=== PATIENT | male | born 1940 | race Caucasian/White ===

== ENCOUNTER 2018-03-04 10:04 | Emergency (ER) | payer MEDICARE, MEDICAID, SELFPAY ==
[2018-03-04 10:16] VITALS: BP 142/81; PULSE 71; RESP 18; TEMP 37; O2SAT 98
[2018-03-04 10:32] LABS: Absolute Basophil Count 0.07 k/cumm (0.0-0.2); Absolute Eosinophil Count 0.37 k/cumm (0.0-0.7); Absolute Monocyte Count 0.65 k/cumm (0.11-0.7); Absolute Neutrophil Count 3.51 k/cumm (1.2-6.7); Eosinophils % 5.5; HCT 45.2 % (40.0-50.0); HGB 15.4 g/dL (13.5-17.5); Lymphocytes % 31.3; Mean Corp. HGB Concentration 34.1 g/dL (32.0-36.0); Mean Corpuscular Hemoglobin 31.9 pg (27.0-33.0); Mean Corpuscular Volume 93.6 fL (80-95); Mean Platelet Volume 10.1 fL (8.0-11.0); Monocytes % 9.7; Neutrophils % 52.5; Platelet Count 204 x1000/uL (130-400); RBC 4.83 m/cumm (4.50-6.00); RBC Distribution Width 13.2 % (11.8-14.1)
--- NOTE | 2018-03-04 10:35 | W.ED.GENAD ---
Discharge Plan Discharge Details Chief Complaint: Palpitatns Clinical Impression: Heart palpitations Primary Care Provider: Anahi Gregorio ED Provider: Jan Aaron Disposition Patient Disposition: HOME Home Meds and New Rx's Prescriptions: Continue aspirin [Aspir-81] 81 MG tablet,delayed release (DR/EC) 81 mg PO BID RF: 0 clorazepate dipotassium 7.5 MG tablet 3.5 mg PO HS PRNRF: 0 docusate sodium [Colace] 100 MG capsule 100 mg PO DAILY RF: 0 Discharge Instructions Instructions: Palpitations (ED) Additional Instructions: if you have severe chest pain, difficulty breathing, or feel as you may pass out return to the emergency department follow up with your civil engineer helper as scheduled at [facility] and also your primary care provider within 1 week Discharge Data Discharge Physician: Jan Aaron Medical Decision Making MDM Narrative Medical decision making narrative: patient here with reporting that he could feel his heart skip a beat every 4-5 beats last night. Denies any sob, chest pain or back pain during this and no feeling as though he may pass out or high herat rate so unlikely acs, dissection, afib with rvr or vfib. I suspect he is feeling the pac's on his ekg. He has no symptoms now, will check for electrolyte abnormatliies and monitor. No sob, no evidence of dvt on exam, no pleuritic chest pain tachycardia or hypoxia so doubt PE. patient remains stable and asymptomatic. LAbs are unremarkable and has unremarkable tele. Will send home with zio patch, and advised f/u with pcp and cardiology as he is scheduled and return precautions given Differential Diagnosis acs, pac, palpitations Lab Data Lab results reviewed: Yes I reviewed the patient's lab results. Lab Results 03/04/18 Range/Units 10:25 WBC 6.70 (4.4-10.8) k/cumm RBC 4.83 (4.50-6.00) m/cumm Hgb 15.4 (13.5-17.5) g/dL Hct 45.2 (40.0-50.0) % MCV 93.6 (80-95) fL MCH 31.9 (27.0-33.0) pg MCHC 34.1 (32.0-36.0) g/dL RDW 13.2 (11.8-14.1) % Plt Count 204 (130-400) x1000/uL MPV 10.1 (8.0-11.0) fL Immature Gran % 0.0 Neutrophils % 52.5 Lymphocytes % 31.3 Monocytes % 9.7 Eosinophils % 5.5 Basophils % 1.0 Absolute Neutrophils 3.51 (1.2-6.7) k/cumm Absolute Lymphocytes 2.10 (1.2-3.4) k/cumm Absolute Monocytes 0.65 (0.11-0.7) k/cumm Absolute Eosinophils 0.37 (0.0-0.7) k/cumm Absolute Basophils 0.07 (0.0-0.2) k/cumm ECG Data Attestation: I personally reviewed and interpreted this ECG (s) as follows: Prior ECG tracings: available for review Interpretation: sinus rhytm with occasional pac, left axis, rate of 65, no significant ischemic changes compared to prior ekg HPI - General Adult General Mode of arrival: ambulatory. Date/Time Provider Initiated Documentation: 03/04/18 10:20. Limitations to Documentation: no limitations. Information obtained by: patient. History of Present Illness 77 year old M presents to the emergency department with the chief complaint of palpitations, described as mild, with intensity rated at 2. Quality is described as other (feels pulse skipping beats), and is localized to the chest. Patient reports no radiation. Patient started experiencing this day(s) (1) and it has been now resolved. No relieving factors improve symptom(s), No exacerbating factors reported . Patient notes no other symptoms.. Patient did receive the following treatments prior to arrival, none HPI Narrative-FOR DICTATION ONLY HPI Narrative: felt like his heart was skippin beats last night. Denies chest pain, sob, diarphoresis, vomit. Is due to see [facility] cardiology for eval of his biopostethetic heart valve placed in 2011 Related Data Home Medications Medication Instructions Recorded Confirmed aspirin [Aspir-81] 81 mg PO BID 09/18/13 03/04/18 clorazepate dipotassium 3.5 mg PO HS PRN 09/18/13 03/04/18 docusate sodium [Colace] 100 mg PO DAILY 02/06/18 03/04/18 Allergies Allergy/AdvReac Type Severity Reaction Status Date / Time iodine Allergy Severe Unverified 03/04/18 10:21 General Stated Complaint: Palpitatns BRITTON: 3 Review of Systems Review of Systems All systems reviewed & are unremarkable except as noted in HPI and below Constitutional Denies chills, Denies fever(s) and Denies weakness Eyes Patient Denies loss of vision ENT Denies change in voice Cardiovascular Denies chest pain, Reports palpitations and Denies dyspnea Respiratory Denies dyspnea Gastrointestinal Denies abdominal pain, Denies nausea and Denies vomiting Genitourinary Denies dysuria Musculoskeletal Denies joint swelling Integumentary/Breasts Denies rash Neurologic Denies loss of vision and Denies weakness Psychiatric Denies depression Endocrine Denies cold intolerance, Denies heat intolerance and Reports palpitations Allergic/Immunologic Reports urticaria PFSH Medical History Anxiety disorder Chest discomfort Constipation Dysphagia ED (erectile dysfunction) of organic origin GERD (gastroesophageal reflux disease) H/O aortic valve replacement History of tobacco use Hyperlipidemia Low back pain Lower urinary tract symptoms S/P CABG (coronary artery bypass graft) Sleep disturbance Social History Smoking/Tobacco Use Status: Former Tobacco Use Exam Const General: no acute distress Orientation: alert HENMT Head: normal to inspection Ears: external ears normal General nose exam: external nose normal Mouth: moist mucous membranes Eyes General: appearance normal, both eyes and all related structures Neck Neck: normal visual inspection Resp Effort & Inspection: normal respiratory effort and able to speak in complete sentences Cardio Rate: regular rate Rhythm: regular rhythm Skin General skin exam: no rashes or lesions noted Neuro General: alert and oriented x3 Extrem General: normal to inspection Psych Mental Status: mental status grossly normal Course Vital Signs Temperature 37.0 C 03/04/18 10:16 Pulse 71 03/04/18 10:16 Respiratory Rate 18 03/04/18 10:16 Blood Pressure 142/81 H 03/04/18 10:16 Pulse Oximetry 98 03/04/18 10:16 Temperature 37.0 C 03/04/18 10:16 Pulse 71 03/04/18 10:16 Respiratory Rate 18 03/04/18 10:16 Blood Pressure 142/81 H 03/04/18 10:16 Pulse Oximetry 98 03/04/18 10:16 Lab/Test Results Lab/Test Results: Laboratory Tests 03/04/18 10:25 WBC 6.70 RBC 4.83 Hgb 15.4 Hct 45.2 MCV 93.6 MCH 31.9 MCHC 34.1 RDW 13.2 Plt Count 204 MPV 10.1 Immature Gran % 0.0 Neutrophils % 52.5 Lymphocytes % 31.3 Monocytes % 9.7 Eosinophils % 5.5 Basophils % 1.0 Absolute Neutrophils 3.51 Absolute Lymphocytes 2.10 Absolute Monocytes 0.65 Absolute Eosinophils 0.37 Absolute Basophils 0.07
--- NOTE | 2018-03-04 10:41 | ED.GENADUL_ITS ---
Discharge Plan Discharge Details Chief Complaint: Palpitatns Clinical Impression: Heart palpitations Primary Care Provider: Anahi Gregorio ED Provider: Jan Aaron Disposition Patient Disposition: HOME Home Meds and New Rx's Prescriptions: Continue aspirin [Aspir-81] 81 MG tablet,delayed release (DR/EC) 81 mg PO BID RF: 0 clorazepate dipotassium 7.5 MG tablet 3.5 mg PO HS PRNRF: 0 docusate sodium [Colace] 100 MG capsule 100 mg PO DAILY RF: 0 Discharge Instructions Instructions: Palpitations (ED) Additional Instructions: if you have severe chest pain, difficulty breathing, or feel as you may pass out return to the emergency department follow up with your carpet inspector as scheduled at [facility] and also your primary care provider within 1 week Discharge Data Discharge Physician: Jan Aaron Medical Decision Making MDM Narrative Medical decision making narrative: patient here with reporting that he could feel his heart skip a beat every 4-5 beats last night. Denies any sob, chest pain or back pain during this and no feeling as though he may pass out or high herat rate so unlikely acs, dissection, afib with rvr or vfib. I suspect he is feeling the pac's on his ekg. He has no symptoms now, will check for electrolyte abnormatliies and monitor. No sob, no evidence of dvt on exam, no pleuritic chest pain tachycardia or hypoxia so doubt PE. patient remains stable and asymptomatic. LAbs are unremarkable and has unremarkable tele. Will send home with zio patch, and advised f/u with pcp and cardiology as he is scheduled and return precautions given Differential Diagnosis acs, pac, palpitations Lab Data Lab results reviewed: Yes I reviewed the patient's lab results. Lab Results 03/04/18 Range/Units 10:25 WBC 6.70 (4.4-10.8) k/cumm RBC 4.83 (4.50-6.00) m/cumm Hgb 15.4 (13.5-17.5) g/dL Hct 45.2 (40.0-50.0) % MCV 93.6 (80-95) fL MCH 31.9 (27.0-33.0) pg MCHC 34.1 (32.0-36.0) g/dL RDW 13.2 (11.8-14.1) % Plt Count 204 (130-400) x1000/uL MPV 10.1 (8.0-11.0) fL Immature Gran % 0.0 Neutrophils % 52.5 Lymphocytes % 31.3 Monocytes % 9.7 Eosinophils % 5.5 Basophils % 1.0 Absolute Neutrophils 3.51 (1.2-6.7) k/cumm Absolute Lymphocytes 2.10 (1.2-3.4) k/cumm Absolute Monocytes 0.65 (0.11-0.7) k/cumm Absolute Eosinophils 0.37 (0.0-0.7) k/cumm Absolute Basophils 0.07 (0.0-0.2) k/cumm ECG Data Attestation: I personally reviewed and interpreted this ECG (s) as follows: Prior ECG tracings: available for review Interpretation: sinus rhytm with occasional pac, left axis, rate of 65, no significant ischemic changes compared to prior ekg HPI - General Adult General Mode of arrival: ambulatory . Date/Time Provider Initiated Documentation: 03/04/18 10:20 . Limitations to Documentation: no limitations . Information obtained by: patient . History of Present Illness 77 year old M presents to the emergency department with the chief complaint of palpitations, described as mild, with intensity rated at 2. Quality is described as other (feels pulse skipping beats), and is localized to the chest. Patient reports no radiation. Patient started experiencing this day(s ) (1) and it has been now resolved. No relieving factors improve symptom(s) , No exacerbating factors reported . Patient notes no other symptoms.. Patient did receive the following treatments prior to arrival, none HPI Narrative-FOR DICTATION ONLY HPI Narrative: felt like his heart was skippin beats last night. Denies chest pain, sob, diarphoresis, vomit. Is due to see [facility] [place] cardiology for eval of his biopostethetic heart valve placed in 2011 Related Data Home Medications Medication Instructions Recorded Confirmed aspirin [Aspir-81] 81 mg PO BID 09/18/13 03/04/18 clorazepate dipotassium 3.5 mg PO HS PRN 09/18/13 03/04/18 docusate sodium [Colace] 100 mg PO DAILY 02/06/18 03/04/18 Allergies Allergy/AdvReac Type Severity Reaction Status Date / Time iodine Allergy Severe Unverified 03/04/18 10:21 General Stated Complaint: Palpitatns BRITTON: 3 Review of Systems Review of Systems All systems reviewed & are unremarkable except as noted in HPI and below Constitutional Denies chills, Denies fever(s) and Denies weakness Eyes Patient Denies loss of vision ENT Denies change in voice Cardiovascular Denies chest pain, Reports palpitations and Denies dyspnea Respiratory Denies dyspnea Gastrointestinal Denies abdominal pain, Denies nausea and Denies vomiting Genitourinary Denies dysuria Musculoskeletal Denies joint swelling Integumentary/Breasts Denies rash Neurologic Denies loss of vision and Denies weakness Psychiatric Denies depression Endocrine Denies cold intolerance, Denies heat intolerance and Reports palpitations Allergic/Immunologic Reports urticaria PFSH Medical History Anxiety disorder Chest discomfort Constipation Dysphagia ED (erectile dysfunction) of organic origin GERD (gastroesophageal reflux disease) H/O aortic valve replacement History of tobacco use Hyperlipidemia Low back pain Lower urinary tract symptoms S/P CABG (coronary artery bypass graft) Sleep disturbance Social History Smoking/Tobacco Use Status: Former Tobacco Use Exam Const General: no acute distress Orientation: alert HENMT Head: normal to inspection Ears: external ears normal General nose exam: external nose normal Mouth: moist mucous membranes Eyes General: appearance normal, both eyes and all related structures Neck Neck: normal visual inspection Resp Effort & Inspection: normal respiratory effort and able to speak in complete sentences Cardio Rate: regular rate Rhythm: regular rhythm Skin General skin exam: no rashes or lesions noted Neuro General: alert and oriented x3 Extrem General: normal to inspection Psych Mental Status: mental status grossly normal Course Vital Signs Temperature 37.0 C 03/04/18 10:16 Pulse 71 03/04/18 10:16 Respiratory Rate 18 03/04/18 10:16 Blood Pressure 142/81 H 03/04/18 10:16 Pulse Oximetry 98 03/04/18 10:16 Temperature 37.0 C 03/04/18 10:16 Pulse 71 03/04/18 10:16 Respiratory Rate 18 03/04/18 10:16 Blood Pressure 142/81 H 03/04/18 10:16 Pulse Oximetry 98 03/04/18 10:16 Lab/Test Results Lab/Test Results: Laboratory Tests 03/04/18 10:25 WBC 6.70 RBC 4.83 Hgb 15.4 Hct 45.2 MCV 93.6 MCH 31.9 MCHC 34.1 RDW 13.2 Plt Count 204 MPV 10.1 Immature Gran % 0.0 Neutrophils % 52.5 Lymphocytes % 31.3 Monocytes % 9.7 Eosinophils % 5.5 Basophils % 1.0 Absolute Neutrophils 3.51 Absolute Lymphocytes 2.10 Absolute Monocytes 0.65 Absolute Eosinophils 0.37 Absolute Basophils 0.07
[2018-03-04 10:46] LABS: ALT 27 U/L (12-78); AST 25 U/L (15-37); Albumin 3.4 g/dL (3.4-5.0); Alkaline Phosphatase 59 U/L (46-116); Anion Gap 4.1 mmol/L (3-11); BUN 12 mg/dL (7-18); Bilirubin, Total 0.5 mg/dL (0.2-1.0); CO2 30.9 mmol/L (21.0-32.0); CREATININE 0.87 mg/dL (0.70-1.30); Calcium 8.4 mg/dL (8.5-10.1); Chloride 103 mmol/L (98-107); Glucose 100 mg/dL (70-100); INR 1.1 (1.0-3.5); PTT Activated 25.8 sec (21.0-31.4); Potassium 4.2 mmol/L (3.5-5.1); Prothrombin Time 10.8 sec (9.3-10.8); Sodium 138 mmol/L (136-145); Total Protein 6.9 g/dL (6.4-8.2)
[2018-03-04 10:47] LABS: Troponin I < 0.02 ng/mL (0.00-0.06)
[2018-03-04 11:42] VITALS: BP 142/81; PULSE 71; RESP 18; TEMP 37; O2SAT 98
--- NOTE | 2018-03-26 13:58 | ZIOP_ITS ---
O MONITOR REPORT DATE OF DICTATION: March 26, [address]: 13 days, 7 hours, March 04 - 2017 Baseline rhythm sinus. Rare single PAC. Seventeen bursts of SVT, longest 17.3 seconds, fastest 200 bpm. Rare single PVC, rare couplet, rare triplet. Two bursts of non-sustained ventricular tachycardia, longest 4-beat duration, fastest 174 bpm. No bradycardia/block. Two triggered events during sinus rhythm +/- single PVC. Two symptomatic episodes described. One episode chest pain/pressure occurring during sinus rhythm 68 bpm with diffuse T-wave inversions. Anxiousness described once during sinus rhythm 70 bpm. Average heart rate sinus 72 bpm, range 49-138 bpm. RECOMMENDATIONS: Stress test might be considered with patient developing chest pain in the context o f new T-wave changes.
== END 2018-03-04 12:05 | disposition home or self-care (01) ==
PROVIDERS: Emergency Provider Emergency Medicine; PCP Nurse Practitioner
DX: R00.2 Palpitations (principal); Z95.2 Presence of prosthetic heart valve
CPT/HCPCS: 36415; 80053; 93005; 93225; 99284; 83735; 84484; 85025; 85610; 85730; 93010

== ENCOUNTER → 2018-03-12 11:03 | Outpatient (BNVA) | payer MEDICARE, MEDICAID, SELFPAY | PROVIDERS: PCP Nurse Practitioner; Visit Provider Surgery | DX: K59.00 Constipation, unspecified (principal) | CPT/HCPCS: 99213 ==

== ENCOUNTER 2018-03-26 09:00 | Outpatient (CLI) | payer MEDICARE, MEDICAID, SELFPAY | END 2018-03-26 09:20 | PROVIDERS: PCP Nurse Practitioner; Referring Provider Emergency Medicine; Visit Provider Internal Medicine Interventional Cardiology | DX: R00.2 Palpitations (principal) | CPT/HCPCS: 0298T ==

== ENCOUNTER 2018-04-30 10:33 | Outpatient (REF) | payer MEDICARE, MEDICAID, SELFPAY ==
[2018-04-30 13:02] LABS: Cholesterol 190 mg/dL (50-200); HDL Cholesterol 53 mg/dL (40-60); LDL CHOLESTEROL 128 mg/dL (<100); Triglyceride 101 mg/dL (30-150)
== END 2018-04-30 10:53 ==
LOC: NCHCN 10:33
PROVIDERS: PCP Nurse Practitioner; Visit Provider Nurse Practitioner
DX: E78.5 Hyperlipidemia, unspecified (principal)
CPT/HCPCS: 80061; 83721

== ENCOUNTER → 2018-08-23 12:00 | Outpatient (BNVA) | payer MEDICARE, MEDICAID, SELFPAY | PROVIDERS: PCP Nurse Practitioner; Visit Provider Internal Medicine Cardiovascular Disease | DX: Z95.2 Presence of prosthetic heart valve (principal); I25.10 Atherosclerotic heart disease of native coronary artery without angina pectoris | CPT/HCPCS: 99214 ==

== ENCOUNTER 2019-02-02 15:42 | Emergency (ER) | payer MEDICARE, MEDICAID, SELFPAY ==
[2019-02-02] VITALS (15 sets, daily range): BP systolic 162–182; BP diastolic 60–86; PULSE 59–68; RESP 15–23; TEMP 37.3; O2SAT 95–98
--- NOTE | 2019-02-02 15:55 | W.ED.GENAD ---
Discharge Plan Disposition Patient Disposition: AGAINST MEDICAL ADVICE Condition: Stable Discharge Details Chief Complaint: Palpitatns Clinical Impression: Palpitations Primary Care Provider: Anahi Gregorio ED Provider: Mariama Mishra Home Meds and New Rx's Prescriptions: Continued peppermint oil 90 mg capsule,delayed,extend.release 90 mg PO BID RF: 0 aspirin [Aspir-81] 81 MG tablet,delayed release (DR/EC) 81 mg PO BID RF: 0 clorazepate dipotassium 7.5 MG tablet 3.5 mg PO HS PRNRF: 0 Discharge Instructions Instructions: Palpitations (ED) Additional Instructions: You are leaving AGAINST MEDICAL ADVICE. As your palpitations have been becoming more persistent with exertion, your symptoms may be due to an acute heart condition that could require further evaluation or hospital admission. Call your power plant assistant at [facility] on Monday morning. Return immediately to the emergency department if you develop any worsening or new concerning symptoms. Discharge Data Discharge Physician: Mariama Mishra Medical Decision Making 1600 -- 78-year-old male with history of anxiety, GERD, hyperlipidemia, aortic valve replacement, CABG who presents with intermittent palpitations and shortness of breath over the past few weeks. His aortic valve was replaced in 2011 due to aortic stenosis. He has been evaluated by [facility] cardiology for this intermittent palpitations and had a heart monitor in the spring 2018 which he states was unremarkable. He states his palpitations have been becoming more frequent, and brought on by exertion. He denies any chest pain at any time. Murmur noted on exam. Patient otherwise appears nontoxic, comfortable. Lungs clear. EKG notes a rate of 67, sinus, left anterior fascicular block, T wave inversion in 1, aVL, V5 and V6, Ms. has been seen in previous EKG but T wave inversion appears more pronounced in V6. There is no acute ST elevation or depression. 1730 -- Labs reviewed and unremarkable. Patient refused chest x-ray. Risks of and disability due to a serious pathology explained to patient fully understands. Discussed patient that as he has been having ongoing symptoms which have been progressing, this could require further evaluation including chest x-ray, possible repeat troponin, or possibly hospital admission. Patient is declining all of these at this time. He is agreeable with me calling [facility] cardiology to discuss but does not want to wait for the consult results. He demonstrates capacity make decisions. AMA form signed. 1819 --after discharge, case discussed with [facility] cardiology and they reviewed patient's recent records and noted that his recent monitor noted some PACs and PVCs, and a stress test from April was unremarkable and an echocardiogram noted moderate stenosis but likely not needing any new emergent aortic valve replacement. They will make a note to make sure patient follows up for reevaluation and for outpatient monitor and echocardiogram if recommended. Medical Records Medical records reviewed: Yes I reviewed the patient's medical records. Lab Data Lab results reviewed: Yes I reviewed the patient's lab results. Laboratory Tests Range/Units 02/02/19 02/02/19 16:00 16:00 WBC (4.4-10.8) k/cumm 7.80 RBC (4.50-6.00) m/cumm 5.14 Hgb (13.5-17.5) g/dL 16.0 Hct (40.0-50.0) % 47.3 MCV (80-95) fL 92.0 MCH (27.0-33.0) pg 31.1 MCHC (32.0-36.0) g/dL 33.8 RDW (11.8-14.1) % 13.3 Plt Count (130-400) x1000/uL 225 MPV (8.0-11.0) fL 10.8 Immature Gran % 0.3 Neutrophils % 52.2 Lymphocytes % 35.0 Monocytes % 9.9 Eosinophils % 2.1 Basophils % 0.5 Absolute Neutrophils (1.2-6.7) k/cumm 4.08 Absolute Lymphocytes (1.2-3.4) k/cumm 2.73 Absolute Monocytes (0.11-0.7) k/cumm 0.77 H Absolute Eosinophils (0.0-0.7) k/cumm 0.16 Absolute Basophils (0.0-0.2) k/cumm 0.04 Sodium (136-145) mmol/L 138 Potassium (3.5-5.1) mmol/L 4.3 Chloride (98-107) mmol/L 103 Carbon Dioxide (21.0-32.0) mmol/L 27.3 Anion Gap (3-11) mmol/L 7.7 BUN (7-18) mg/dL 18 Creatinine (0.70-1.30) mg/dL 0.99 Estimated GFR/1.73 m2 (mL/min/1.73m2) >= 60.00 Glucose (70-100) mg/dL 106 H Calcium (8.5-10.1) mg/dL 8.6 Magnesium (1.8-2.4) mg/dL 2.2 Total Bilirubin (0.2-1.0) mg/dL 0.4 AST (15-37) U/L 21 ALT (12-78) U/L 27 Alkaline Phosphatase (46-116) U/L 64 Troponin I (0.00-0.06) ng/mL < 0.05 Total Protein (6.4-8.2) g/dL 7.6 Albumin (3.4-5.0) g/dL 3.7 ECG Data Attestation: I personally reviewed and interpreted this ECG (s) as follows: Interpretation: Rate of 67, sinus, left anterior fascicular block, T wave inversion in 1, aVL, V2, V5 and V6 which is been seen in previous. More pronounced T wave inversion in V6 compared to previous. No acute ST elevation or depression. QTc 433. QRS 98. HPI General Mode of arrival: ambulatory. Date/Time Provider Initiated Documentation: 02/02/19 15:53. Limitations to Documentation: no limitations. Information obtained by: patient. HPI Narrative: Patient is a 78-year-old male with a history of anxiety, GERD, hyperlipidemia, aortic valve replacement 2011 as well as CABG who presents the ED with complaint of intermittent palpitations for the last few weeks, becoming more frequent especially with exertion. He states he feels his pulse and it feels like it is skipping beats. He states during these episodes, he developed shortness of breath and dizziness but denies any chest pain. Triage note stated that patient has chest pressure but he denies this. He states that he has been having similar episodes since last year as well as spring 2018 which was evaluated by [facility] cardiology and was told that his aortic valve likely needs replaced due to developing return of aortic stenosis. He states that he had heart monitor placed in the spring 2018 which she states was normal. Patient denies any fever or cough. He states his palpitations and shortness of breath resolved on arrival to the ED and he denies any complaints at present Related Data Home Medications Medication Instructions Recorded Confirmed aspirin [Aspir-81] 81 mg PO BID 09/18/13 08/23/18 clorazepate dipotassium 3.5 mg PO HS PRN 09/18/13 08/23/18 peppermint oil 90 mg 90 mg PO BID 03/12/18 08/23/18 capsule,delayed,extended release Allergies Allergy/AdvReac Type Severity Reaction Status Date / Time iodine Allergy Severe Unverified 08/23/18 12:57 General BRITTON: 3 Review of Systems Review of Systems All systems reviewed & are unremarkable except as noted in HPI and below Constitutional Reports as per HPI, Denies chills and Denies fever(s) Eyes Denies blurry vision ENT Denies dizziness, Denies sore throat and Denies throat swelling Cardiovascular Denies chest pain and Denies dyspnea Respiratory Denies cough and Denies dyspnea Gastrointestinal Denies abdominal pain, Denies diarrhea and Denies vomiting Genitourinary Denies hematuria and Denies dysuria Musculoskeletal Denies back pain and Denies numbness Integumentary/Breasts Denies lesions and Denies rash Neurologic Denies dizziness, Denies focal weakness and Denies numbness Allergic/Immunologic Denies throat swelling PFS Medical History Anxiety disorder (Chronic) Chest discomfort (Resolved) Constipation (Acute ~05/2017) Dysphagia (Resolved) 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) GERD (gastroesophageal reflux disease) (Chronic) History of tobacco use Hyperlipidemia (Chronic) Low back pain (Chronic) Lower urinary tract symptoms (Resolved) Normal colonoscopy (Acute) Sleep disturbance (Chronic) Surgical History H/O aortic valve replacement S/P CABG (coronary artery bypass graft) Social History Smoking/Tobacco Use Status: Former Tobacco Use Alcohol Intake: never Drug use: Never Substance use type: does not use Do you feel safe in your relationship?: Yes Exam Const General: cooperative, healthy appearing and no acute distress HENMT Head: normal to inspection Face and sinus: normal facial exam Eyes General: appearance normal, both eyes and all related structures EOM: EOM intact bilaterally Neck Neck: normal visual inspection and No submandibular swelling Lymphatic: no lymphadenopathy noted Chest Chest: normal inspection of the chest and no tenderness Resp Effort & Inspection: normal respiratory effort and able to speak in complete sentences Auscultation: clear to auscultation bilaterally Cardio Rate: regular rate Rhythm: regular rhythm Heart Sounds: murmur GI Inspection: normal to inspection Palpation: soft, not firm, not rigid and nontender Auscultation: normal bowel sounds Male General Exam: Yes normal external exam Back/Spine/Pelvis Thoracic/Lumbar Spine: thoracic and lumbar spine normal to inspection Skin General skin exam: no rashes or lesions noted Neuro General: alert, awake and oriented x3 Cognition: normal cognition Speech: speech normal Motor: muscle tone normal throughout Sensory Exam: no sensory deficits noted Extrem General: normal to inspection, full ROM, normal capillary refill, no calf tenderness bilaterally and no edema Psych Appearance: grossly normal Mental Status: mental status grossly normal Speech and Movement: speech and movement normal Affect: normal affect
[2019-02-02 16:14] LABS: Abs Immature Grans 0.02 k/cumm (0.0-0.09); Absolute Basophil Count 0.04 k/cumm (0.0-0.2); Absolute Eosinophil Count 0.16 k/cumm (0.0-0.7); Absolute Lymphocyte Count 2.73 k/cumm (1.2-3.4); Absolute Monocyte Count 0.77 k/cumm (0.11-0.7); Absolute Neutrophil Count 4.08 k/cumm (1.2-6.7); Basophils % 0.5; Eosinophils % 2.1; HCT 47.3 % (40.0-50.0); Immature Grans % 0.3; Mean Corp. HGB Concentration 33.8 g/dL (32.0-36.0); Mean Corpuscular Hemoglobin 31.1 pg (27.0-33.0); Mean Platelet Volume 10.8 fL (8.0-11.0); Monocytes % 9.9; Neutrophils % 52.2; Platelet Count 225 x1000/uL (130-400); RBC 5.14 m/cumm (4.50-6.00); RBC Distribution Width 13.3 % (11.8-14.1)
[2019-02-02 16:36] LABS: ALT 27 U/L (12-78); AST 21 U/L (15-37); Albumin 3.7 g/dL (3.4-5.0); Alkaline Phosphatase 64 U/L (46-116); Anion Gap 7.7 mmol/L (3-11); BUN 18 mg/dL (7-18); Bilirubin, Total 0.4 mg/dL (0.2-1.0); CO2 27.3 mmol/L (21.0-32.0); CREATININE 0.99 mg/dL (0.70-1.30); Calcium 8.6 mg/dL (8.5-10.1); Chloride 103 mmol/L (98-107); Glucose 106 mg/dL (70-100); Magnesium 2.2 mg/dL (1.8-2.4); Potassium 4.3 mmol/L (3.5-5.1); Sodium 138 mmol/L (136-145); Total Protein 7.6 g/dL (6.4-8.2); Troponin I < 0.05 ng/mL (0.00-0.06)
== END 2019-02-02 18:06 | disposition left against medical advice (07) ==
PROVIDERS: Emergency Provider Physician Assistant; PCP Nurse Practitioner
DX: R00.2 Palpitations (principal); R06.02 Shortness of breath; R42 Dizziness and giddiness; Z95.1 Presence of aortocoronary bypass graft; Z95.2 Presence of prosthetic heart valve; Z53.29 Procedure and treatment not carried out because of patient's decision for other reasons
CPT/HCPCS: 36415; 80053; 93005; 99285; 83735; 84484; 85025; 93010

== ENCOUNTER 2019-02-05 14:14 | Outpatient (CLI) | payer MEDICARE, MEDICAID, SELFPAY ==
--- NOTE | 2019-02-05 12:04 | DI.RAD_ITS ---
SYMPTOMS/DIAGNOSIS: SHORTNESS OF BREATH, R06.02 PA AND LATERAL CHEST: Comparison is made with [id number]. The heart size is within normal limits. Sternal wires and aortic valve prosthesis are noted. The lungs appear somewhat hyperinflated but clear. No infiltrate, effusion or pulmonary edema is seen. There is no evidence of pneumothorax. IMPRESSION: Hyperinflation, otherwise negative.
== END 2019-02-05 14:34 ==
PROVIDERS: PCP Nurse Practitioner; Visit Provider Nurse Practitioner
DX: R06.02 Shortness of breath (principal); Z95.2 Presence of prosthetic heart valve
CPT/HCPCS: 71046

== ENCOUNTER 2019-02-06 15:56 | Inpatient (IN) | payer MEDICARE, MEDICAID, SELFPAY ==
[2019-02-06] VITALS (27 sets, daily range): BP systolic 137–169; BP diastolic 63–86; PULSE 59–72; RESP 12–23; TEMP 36.2–36.6; O2SAT 96–99
--- NOTE | 2019-02-06 16:07 | W.ED.GENAD ---
Discharge Plan Disposition Patient Disposition: [facility] INPATIENT Condition: Stable Discharge Details Chief Complaint: Dizzy/Sync Clinical Impression: Acute dyspnea, Heart palpitations Primary Care Provider: Anahi Gregorio ED Provider: Angle Feliz Home Meds and New Rx's Prescriptions: No Action peppermint oil 90 mg capsule,delayed,extend.release 90 mg PO BID RF: 0 aspirin [Aspir-81] 81 MG tablet,delayed release (DR/EC) 81 mg PO BID RF: 0 clorazepate dipotassium 7.5 MG tablet 3.5 mg PO HS PRNRF: 0 Medical Decision Making Patient 78 year old male presenting with c/c of palpitations. Has been having these intermittently, primarily with exertion, for the past few months. Much worse today than typical. Denies CP but endorses some left arm discomfort. Patient s/p CABG and aortic valve replacement. Denies back pain. Is asympaomtic at this time. Patient given full dose ASA, EKG obtained. Exam concerning for anxious appearing male, NSR on exam. Notable systolic murmur, this has been recorded historically, patient s/p aortic valve replacement. VS notable for BP of 158/66, this is typical for the patient. EKG reviewed by Dr. Durand, patient has EKG changes including ST depression, Twave inversion but this does not appear new compared to previous. Reviewed cxr that was preformed as an outpatient this morning. Reviewed by radiologist: Comparison is made with . The heart size is within normal limits. Sternal wires and aortic valve prosthesis are noted. The lungs appear somewhat hyperinflated but clear. No infiltrate, effusion or pulmonary edema is seen. There is no evidence of pneumothorax. IMPRESSION: Hyperinflation, otherwise negative. No leukocytosis. Troponin <0.05. TSH normal 2.12. Patient has been feeling well while here, will consult with [facility] [place]. Spoke with Dr. Zamudio with [facility] cardiology who advised that patients valve has been boarderline historically. Advised that patient may need replacement valve, likely TAVR. Advised that if the patient is stable for him to be admitted here with plans for echo and consult with [facility]. Advised we continue with trending troponins. Will consult with hospitalist. consulted with Dr. Musa who agrees to admission for above recommendations. HPI General Mode of arrival: ambulatory. Date/Time Provider Initiated Documentation: 02/06/19 16:01. Limitations to Documentation: no limitations. Information obtained by: patient and RN notes reviewed. HPI Narrative: Patient is a 78 year old male presenting today with c/c of palpitations. Patient has history of anxiety, aortic valve stenosis, s/p valve replacement, s/p CABG, GERD, hyperlipidemia. States that he was seen by cardiology this past spring. Had been feeling fairly well at that time. STates that since his valve replacement in 2011, he has been seen Q6 months. However, since that visit he has had increased symptoms of palpitations. States that palpitations comes on with exertion, resolves with rest. Reprots that he feels his heart beating in sets of 2 or 3. Patient states that today he has had palpitations much more frequently than typical. Has had them since I woke up this morning but only during times of exertion such as when he was cleaning his floor this AM. Reports that he had some left arm discomfort. Feels SOB with the palpitations, can become lightheaded. Symptoms resolve with rest. Last wore an event monitor last fall, signicant at that time for few PAC and PVCs. Montserrat takes daily 81mg ASA but states that since he was having the palpitations this morning decided to not take this. Patient was seen here 02/02/19 for same complaint and left AMA. At that time, the physician had ordered cxr which patient refused. This was completed earlier today and reviewed by his PCP with no acute findigns noted. He reports he has a f/u appointment with cardiology in 2 days. Related Data Home Medications Medication Instructions Recorded Confirmed aspirin [Aspir-81] 81 mg PO BID 09/18/13 02/06/19 clorazepate dipotassium 3.5 mg PO HS PRN 09/18/13 02/06/19 peppermint oil 90 mg 90 mg PO BID 03/12/18 02/06/19 capsule,delayed,extended release Allergies Allergy/AdvReac Type Severity Reaction Status Date / Time iodine Allergy Severe Unverified 02/06/19 16:12 General BRITTON: 3 Review of Systems Constitutional Reports as per HPI, Denies chills, Denies fever(s), Denies headache(s), Denies lethargy and Denies poor appetite Eyes Denies change in vision ENT Denies dizziness and Denies headache(s) Cardiovascular Reports as per HPI, Denies chest pain at rest, Denies chest pain with activity, Denies diaphoresis, Denies syncope, Denies pedal edema, Denies edema, Denies leg edema, Reports lightheadedness (associated with palpitations), Reports radiating jaw, neck or arm pain (left arm discomfort this afternoon with exertion and palpitations), Reports palpitations, Reports dyspnea on exertion (when experiencing palpitations) and Denies paroxysmal nocturnal dyspnea Respiratory Reports as per HPI, Denies chest congestion, Denies cough, Denies hemoptysis, Denies pain on inspiration, Denies pain with cough, Reports dyspnea on exertion (when experiencing palpitations) and Denies wheezing Gastrointestinal Reports as per HPI, Denies abdominal pain, Denies diarrhea, Denies nausea and Denies vomiting Genitourinary Denies system reviewed and no additional complaints, except as docu (denies change in urinary habits) Musculoskeletal Reports as per HPI, Denies abnormal gait and Denies back pain Integumentary/Breasts Reports as per HPI and Denies rash Neurologic Reports as per HPI, Denies abnormal gait, Denies dizziness, Denies syncope and Denies headache(s) Endocrine Reports palpitations Allergic/Immunologic Denies wheezing [facility] Medical History Anxiety disorder (Chronic) Chest discomfort (Resolved) Constipation (Acute ~05/2017) Dysphagia (Resolved) 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) GERD (gastroesophageal reflux disease) (Chronic) History of tobacco use Hyperlipidemia (Chronic) Low back pain (Chronic) Lower urinary tract symptoms (Resolved) Normal colonoscopy (Acute) Sleep disturbance (Chronic) Surgical History H/O aortic valve replacement S/P CABG (coronary artery bypass graft) Social History Smoking/Tobacco Use Status: Former Tobacco Use Alcohol Intake: never Drug use: Never Substance use type: does not use Do you feel safe at home: Yes Do you feel safe in your relationship?: Yes Exam Const General: cooperative, healthy appearing, comfortable, no acute distress and well developed Nutritional Appearance: average body habitus and well nourished Orientation: alert, awake and oriented x3 HENMT Head: normal to inspection Ears: hearing grossly normal bilaterally Mouth: moist mucous membranes Chest Chest: normal inspection of the chest, normal palpation of entire chest wall and no crepitus Resp Effort & Inspection: normal respiratory effort, able to speak in complete sentences and no respiratory distress Auscultation: clear to auscultation bilaterally, no rales, no rhonchi and no wheezes Cardio Jugular venous pressure: no JVD Palpation: normal PMI Rate: regular rate Rhythm: regular rhythm Heart Sounds: S1 normal, S2 normal and murmur systolic GI Inspection: normal to inspection, no edema and non-distended Palpation: soft, no hepatosplenomegaly, not firm, no guarding, not rigid and nontender Auscultation: normal bowel sounds Skin General skin exam: no rashes or lesions noted Trauma: no lacerations or abrasions Neuro General: alert, awake and oriented x3 Cognition: normal cognition Speech: speech normal Gait: normal gait Extrem General: normal to inspection, normal capillary refill, no pedal edema, no calf tenderness and normal gait Psych Appearance: grossly normal and well kempt Mental Status: mental status grossly normal Speech and Movement: speech and movement normal
[2019-02-06] MEDS: Aspirin 81 MG CHEW (16:19)
[2019-02-06 16:22] LABS: Abs Immature Grans 0.01 k/cumm (0.0-0.09); Absolute Basophil Count 0.04 k/cumm (0.0-0.2); Absolute Eosinophil Count 0.16 k/cumm (0.0-0.7); Absolute Lymphocyte Count 2.65 k/cumm (1.2-3.4); Absolute Monocyte Count 0.68 k/cumm (0.11-0.7); Absolute Neutrophil Count 4.03 k/cumm (1.2-6.7); Basophils % 0.5; Eosinophils % 2.1; HCT 45.7 % (40.0-50.0); HGB 15.6 g/dL (13.5-17.5); Immature Grans % 0.1; Mean Corp. HGB Concentration 34.1 g/dL (32.0-36.0); Mean Corpuscular Hemoglobin 31.3 pg (27.0-33.0); Mean Corpuscular Volume 91.8 fL (80-95); Mean Platelet Volume 10.8 fL (8.0-11.0); Neutrophils % 53.3; Platelet Count 227 x1000/uL (130-400); RBC 4.98 m/cumm (4.50-6.00); White Blood Cell Count 7.57 k/cumm (4.4-10.8)
[2019-02-06 16:40] LABS: ALT 30 U/L (12-78); AST 20 U/L (15-37); Albumin 3.6 g/dL (3.4-5.0); Alkaline Phosphatase 62 U/L (46-116); Anion Gap 9.7 mmol/L (3-11); BUN 15 mg/dL (7-18); Bilirubin, Total 0.3 mg/dL (0.2-1.0); CO2 26.3 mmol/L (21.0-32.0); CREATININE 1.03 mg/dL (0.70-1.30); Calcium 8.7 mg/dL (8.5-10.1); Chloride 104 mmol/L (98-107); Glucose 136 mg/dL (70-100); Magnesium 2.1 mg/dL (1.8-2.4); Potassium 3.8 mmol/L (3.5-5.1); Sodium 140 mmol/L (136-145); Total Protein 7.1 g/dL (6.4-8.2)
[2019-02-06 16:41] LABS: Troponin I < 0.05 ng/mL (0.00-0.06)
[2019-02-06 17:15] LABS: PTT Activated 25.2 sec (21.0-31.4); Prothrombin Time 10.3 sec (9.3-11.0)
[2019-02-06 17:26] LABS: TSH (W/Ref FT4) 2.12 uIU/mL (0.36-3.74)
[2019-02-06 20:53] LABS: Troponin I < 0.05 ng/mL (0.00-0.06)
[2019-02-06] MEDS: Enoxaparin 40 MG/0.4 ML SYR SC (22:12)
[2019-02-07] VITALS (8 sets, daily range): BP systolic 163–174; BP diastolic 71–84; PULSE 58–74; RESP 17–20; TEMP 35.5–36.7; O2SAT 96–100
--- NOTE | 2019-02-07 00:26 | W.PM.HP.N ---
Date of service: 02/06/19 Time of Service: 23:50 Assessment and Plan (1) Aortic stenosis: Current visit: Yes Status: Chronic I suspect that his aortic stenosis is worsening given his symptoms of lightheadedness and palpitaitons and dyspnea. However he also may have concommittant worsening CAD. I do not understand [facility] reluctance to accept the patient today as there is very little we can offer him here at [facility] since we do not have a outside laborer or surgical expertise to take care of his prosthetic aortic valve stenosis. Perhaps [facility] was at over capacity and as the patient is hemodynamically stable they felt that we could maintain him. I am avoiding nitrates or vasodilators given the severity of his aortic stenosis. I will check his third set of troponin I levels and check a TTE in the a.m. and then the day hospitalist can call [facility] back to discuss his case hopefully with a cardiology attending. The patient has no signs of acute CHF i.e. no JVD, pedal edema or S3 and recent CXR did not show CHF. Qualifiers: Cardiac valve disease etiology: etiology unspecified Qualified Code(s): I35.0 - Nonrheumatic aortic (valve) stenosis (2) Chest pain: Current visit: Yes Status: Acute I suspect his chest discomfort is from his dyspnea and palpitations from his A.S. however he also has known CAD and is s/p CABG of his LAD and PDA, but his cath in 2011 demonstrated disease of his LM of 40% as well as 40-50% of his LAD and 50% of his RCA. He also has severe concentric LVH as well as his aortic stenosis. For tonight we will continue serial troponins but is he gets more chest pain, I will repeat his EKG and troponins and check bedside echo (POCUS) to look for RWMA and if he is exhibiting ischemia, I will call [facility] and insist upon immediate transfer. If they can not accept him then I will discuss his case w/ [facility]. Qualifiers: Chest pain type: unspecified Qualified Code(s): R07.9 - Chest pain, unspecified (3) Coronary artery disease: Current visit: Yes Status: Chronic as above. avoid nitrates or vasodilators in the setting of severe LVH and worsening aortic stenosis. Qualifiers: Coronary Disease-Associated Artery/Lesion type: [place] artery [place] vs. transplanted heart: [place] heart Associated angina: without angina Qualified Code(s): I25.10 - Atherosclerotic heart disease of [place] coronary artery without angina pectoris History of Present Illness Chief Complaint: dyspnea, palpitations, chest tightness Narrative: 78 yr old male former smoker, recovered alcoholic w/ PMH of aortic stenosis and CAD. He is s/p 2 vessel CABG (VARELA TO LAD, SVG TO PDA in 2011) and s/p 25 mm Bryant Magna Ease aortic valve replacement for severe aortic stenosis in 2011. He is followed at [facility] by Dr. Maxime Najera II. He was last seen 11/28/2018. At that time the patient was able to perform his ADL's w/out chest pain or dyspnea. In fact he was able to cut wood and walk 2 flights of stairs w/out symptms. His echo at that time showed progression of his aortic stenosis w/ worsening aortic valve gradients (peak 56 mm, mean 32 mm) but his SOLITARIO had not changed much (1.1 cm2). Since his visit in October he has developed worsening dyspnea and palpitations and chest tightness w/ activity. He says that this has progressed over the past month. It is now at the point where he gets short of breath and notices skipped beats and some chest tightness w/ radiation into his left arm and into his left upper back w/ very light activity. He can no longer perform his ADL's w/out symptoms. He called his fuel truck driver office today to see if they could get him in sooner (he did not have an appointment until May and he was told they could get him this Monday. However when his symptoms got worse today, he started to drive himself to [facility] but only made it to [place] from [place] when he called EMS. The patient had been seen in the ER at [facility] earlier in the week by Dr. Mishra on 02/02/2019 but declined to stay. Evaluation in the ER was done by Dr. Deepak Durand and included CXR and EKG and labs. EKG demonstrates LVH w/ strain pattern (inverted T waves in I, aVL, V5, V6. Labs included CBC, CMP, coags, troponin I levels. CBC and CMP were normal. prothrombin and aPTT were normal. Troponin I was <0.05 x 2 sets. CXR had been ordered and performed on 02/05/2019 by his PCP and showed hyperinflation but otherwise no acute cardiopulmonary findings. ASHKAN Ferreira who assumed the patient's care from Dr. Durand, spoke w/ [facility] ice cream man continuous process rotary drum tanner, Dr. Zamudio who declined to accept the patient in transfer tonight and indicated to Angle that the patient should be managed here w/ serial troponins and repeat echo in the a.m. and then after workup his fuel truck driver could be called in the a.m. to discuss his case. I accessed [facility] records to get the patient's notes from his 11/28/2018 visit and also phone conversation from 02/06/[address] Boyer's notes. However, Dr. Boyer's notes are incomplete so I can not discern what was discussed but am basing my information relayed to me by Angle Feliz. At present the patient is free of any chest pain/pressure and denies any dyspnea at rest. The plan will be to repeat his third troponin and get TTE in the a.m. although I suspect [facility] will want to repeat their own echo and get a SNOW to evaluate his AV. Review of Systems Constitutional Reports system reviewed and no additional complaints, except as docu Cardiovascular Denies chest pain at rest, Reports chest pain with activity, Denies syncope, Denies pedal edema, Denies claudication, Denies leg edema, Reports lightheadedness, Reports palpitations and Reports dyspnea on exertion Respiratory Denies chest congestion, Denies cough and Reports dyspnea on exertion Neurologic Denies syncope Endocrine Reports palpitations [facility] Medical History Anxiety disorder (Chronic) Chest discomfort (Resolved) Constipation (Acute ~05/2017) Dysphagia (Resolved) 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) GERD (gastroesophageal reflux disease) (Chronic) History of tobacco use Hyperlipidemia (Chronic) Low back pain (Chronic) Lower urinary tract symptoms (Resolved) Normal colonoscopy (Acute) Sleep disturbance (Chronic) Surgical History H/O aortic valve replacement S/P CABG (coronary artery bypass graft) Social History Smoking/Tobacco Use Status: Former Tobacco Use Alcohol Intake: never Drug use: Never Substance use type: does not use Do you feel safe at home: Yes Do you feel safe in your relationship?: Yes Meds Home Medications Medication Instructions Recorded Confirmed Type aspirin [Aspir-81] 81 mg PO BID 09/18/13 02/06/19 History clorazepate dipotassium 3.5 mg PO HS PRN 09/18/13 02/06/19 History peppermint oil 90 mg 90 mg PO BID 03/12/18 02/06/19 History capsule,delayed,extended release Allergies Allergy/AdvReac Type Severity Reaction Status Date / Time iodine Allergy Severe Unverified 02/06/19 16:12 Exam Const General: cooperative, comfortable and no acute distress Nutritional Appearance: average body habitus Orientation: alert, awake and oriented x3 Neck Neck: normal visual inspection, full ROM, no lymphadenopathy, trachea midline, supple and no JVD Thyroid: thyroid normal Carotids: delayed carotid upstroke and bruit bilaterally Lymphatic: no lymphadenopathy noted Resp Effort & Inspection: normal respiratory effort and able to speak in complete sentences Auscultation: clear to auscultation bilaterally Cardio Jugular venous pressure: no JVD Palpation: normal PMI Rate: regular rate Rhythm: regular rhythm Heart Sounds: S1 normal, normal, physiologic split S2 and murmur systolic crescendo, III/, at the base and neck Bruits: no abdominal aortic bruits and carotid bruit bilaterally Pulses: normal peripheral pulses GI Inspection: normal to inspection Palpation: soft and no hepatosplenomegaly Percussion: normal to percussion Auscultation: normal bowel sounds Neuro General: alert, awake, oriented x3, moves all extremities and no focal motor deficits Cognition: normal cognition Speech: speech normal Sensory Exam: no sensory deficits noted Extrem General: normal to inspection, full ROM, no clubbing, cyanosis or edema, no pedal edema and no calf tenderness Psych Appearance: grossly normal Mental Status: mental status grossly normal Speech and Movement: speech and movement normal Mood: congruent mood Affect: normal affect Attitude: cooperative Thought Process: normal Thought Content: normal Insight: insight good Judgment: judgment good Results Imaging Chest x-ray: image reviewed EKG: image reviewed Labs : 02/06/19 16:10 02/06/19 16:10 Laboratory Results - last 24 hr 02/06/19 02/06/19 02/06/19 16:10 16:10 16:10 WBC 7.57 RBC 4.98 Hgb 15.6 Hct 45.7 MCV 91.8 MCH 31.3 MCHC 34.1 RDW 13.0 Plt Count 227 MPV 10.8 Immature Gran % 0.1 Neutrophils % 53.3 Lymphocytes % 35.0 Monocytes % 9.0 Eosinophils % 2.1 Basophils % 0.5 Absolute Neutrophils 4.03 Absolute Lymphocytes 2.65 Absolute Monocytes 0.68 Absolute Eosinophils 0.16 Absolute Basophils 0.04 PT INR APTT Sodium 140 Potassium 3.8 Chloride 104 Carbon Dioxide 26.3 Anion Gap 9.7 BUN 15 Creatinine 1.03 Estimated GFR/1.73 m2 >= 60.00 Glucose 136 H Calcium 8.7 Magnesium 2.1 Total Bilirubin 0.3 AST 20 ALT 30 Alkaline Phosphatase 62 Troponin I < 0.05 Total Protein 7.1 Albumin 3.6 TSH 2.12 02/06/19 02/06/19 16:10 20:20 WBC RBC Hgb Hct MCV MCH MCHC RDW Plt Count MPV Immature Gran % Neutrophils % Lymphocytes % Monocytes % Eosinophils % Basophils % Absolute Neutrophils Absolute Lymphocytes Absolute Monocytes Absolute Eosinophils Absolute Basophils PT 10.3 INR 1.0 APTT 25.2 Sodium Potassium Chloride Carbon Dioxide Anion Gap BUN Creatinine Estimated GFR/1.73 m2 Glucose Calcium Magnesium Total Bilirubin AST ALT Alkaline Phosphatase Troponin I < 0.05 Total Protein Albumin TSH Last Vital Signs Temp 36.2 C L 02/07/19 00:00 Pulse 63 02/07/19 00:00 Resp 18 02/07/19 00:00 BP 169/84 H 02/07/19 00:00 Pulse Ox 96 02/07/19 00:00
[2019-02-07] MEDS: Melatonin 3 MG TAB 9 MG PO (00:36)
[2019-02-07] MEDS: diphenhydrAMINE 25 MG CAP PO (00:37)
[2019-02-07 00:59] LABS: Troponin I < 0.05 ng/mL (0.00-0.06)
--- NOTE | 2019-02-07 01:49 | NUR.NOTE ---
Nursing Note: Pt was admitted in rm 226. AO x 3., with steady gait. Melatonin given as ordered. B/P rechecked and last taken, and recorded 172/84 and rn neonatal made aware, No voiced complaints until this time. Call lights at reach. Continue to monitor.
[2019-02-07] MEDS: Normal Saline Flush 10 ML SYR IVP ×2 (08:00→21:17)
[2019-02-07] MEDS: Aspirin E.C. 81 MG TABEC PO ×2 (09:35→21:17)
--- NOTE | 2019-02-07 09:57 | PHARADMIT ---
Admission Pharmacy Clinical Review DYSPNEA, (had Aortic Valve replaced) Code Status Full Code Current Weight Wgt-76.5 kg Renally Cleared and Narrow Therapeutic Index Meds CrCl~ 62 mL/min Meds-OK QTc Value / Action Taken QTc-431 NA BP Control, Fever BP- 164/72 Tmax- 36.7C Electrolytes reviewed Na- 140 K+3.8 Mag-2.1 DVT Prophylaxis LOVENOX 40MG, ASA-ec Opiate Usage / Scheduled Bowel Regimen Ordered No Yes Plt/SCr for Heparin / Enoxaparin Plts- 227 SCr-1.03 INR for Warfarin inr-1.0 H/H stable, WBC/Bands H&H- 15.6/45.7 WBC- 7.57 Antibiotic appropriateness none Cultures and Sensitivities none Surgical ABX d/c within 24 hr na DM control / Insulin Dosing BG-136 Heart Failure (Check EF%) (TAY's, B-Block, Diuretics) None IV to PO Switch No Home Meds Reviewed Yes Home Meds Not Ordered Yes Comments Needs ECHO PatOwn Peppermint Oil, PatOwn- Clorazepate
--- NOTE | 2019-02-07 10:20 | INITIAL_ITS ---
- If Service Date Differs Date of service: 02/07/19 Time of Service: 10:20 Care Management Initial Assess REASON FOR HOSPITALIZATION:: Aortic stenosis PAST MEDICAL HISTORY/PAST SURGICAL HISTORY:: Medical History: Anxiety disorder (Chronic). Chest discomfort (Resolved). Constipation (Acute ~05/2017). Dysphagia (Resolved). 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 GERD (gastroesophageal reflux disease) (Chronic). History of tobacco use. Hyperlipidemia (Chronic). Low back pain (Chronic). Lower urinary tract symptoms (Resolved). Normal colonoscopy (Acute). Sleep disturbance (Chronic). Surgical History: H/O aortic valve replacement. S/P CABG (coronary artery bypass graft) PREVIOUS FUNCTIONAL STATUS/SOCIAL/FAMILY SUPPORTS:: Jey lives with his lady friend Anisa in a single family home in [place], [place] 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 Jey has children but none of them live close by. He identifies Anisa and her children as his supports in the community. Jey is very active and independent with all care and activities. He gardens in the summer and continues to drive. CURRENT FUNCTIONAL STATUS:: Jey was sitting up in bed when CM came to see him. He was willing to participate in conversation although he was not initially very talkative. He describes himself as a loner. Jey states he is waiting for his test results but is sure he is going to need another cardiac procedure and will be transferred to [facility]. ADVANCE DIRECTIVES:: None on file at [facility] Has patient been provided with information about the portal?: No Did the patient sign up for the portal?: No CODE STATUS:: Full Code INSURANCE COVERAGE / FINANCIAL ISSUES:: Medicare. Medicaid CURRENT HOME/COMMUNITY SERVICES/EQUIPMENT:: none PRIMARY CARE PHYSICIAN:: Anahi Gregorio POTENTIAL DISCHARGE NEEDS:: Follow up with PCP and discharge plan of care PATIENT/FAMILY EDUCATION NEEDS:: Discharge plan, limitations, follow up plan, Ask Me Three. ANTICIPATED BARRIERS TO DISCHARGE:: none identified TRANSPORTATION:: via private vehicle with family when ready PLAN:: Jey is undergoing testing for chest pain. He will likely be discharged home with no services unless he requires tertiary care and is transferred to [facility]. CM will continue to support patient, family and discharge planning needs.
--- NOTE | 2019-02-07 12:34 | MERGE_ITS ---
*[facility]* *[facility]* [address] [place] [address] Date of study: 02/07/2019 Transthoracic Echocardiography M-mode, complete 2D, complete spectral Doppler, and color Doppler *STUDY CONCLUSIONS* Impressions: Very similar bioprosthetic aortic valve echo hemodynamic parameters compared to 2018 study. Summary: 1. Left ventricle: The cavity size was normal. Wall thickness was increased in a pattern of severe LVH. Systolic function was hyperdynamic. The estimated ejection fraction was 65-70%. Diastolic parameters were normal for age. There was no evidence of elevated ventricular filling pressure by Doppler parameters. 2. Aortic valve: A bioprosthesis was present and functioning abnormally, moderately stenotic. The sewing ring appeared normal. Peak velocity (S): 4.4m/sec. Mean gradient (S): 43.3mm Hg. VTI ratio of LVOT to aortic valve: 0.3. Acceleration time <100 ms. Indexed valve area (Vmean): 0.4cm^2/m^2, suggesting severe patient -prosthesis mismatch. 3. Mitral valve: There was mild regurgitation. Valve area by pressure half-time: 1.8cm^2. 4. Right ventricle: The cavity size was normal. Wall thickness was normal. Systolic function was normal. 5. Atrial septum: No defect or patent foramen ovale was identified. 6. Pulmonary arteries: Systolic pressure could not be accurately estimated. 7. Inferior vena cava: The vessel was patent and normal in size. The respirophasic diameter changes were in the normal range (greater than or equal to 50%), consistent with normal central venous pressure. *PATIENT PRESENTATION* Height: 180.3cm (71in ) S/D Pressure: 163 / 75 Weight: 83kg (182.6lb ) BSA: 2.05m^2 Test start time: 12:40 PM. Test stop time: 01:45 PM. PERFORMING Unknown PERFORMING [facility] CONSULTING Guero Musa ORDERING Guero Musa REFERRING Guero Musa HOT ROOM ATTENDANT Sharmila Almanzar, RT (R)(CT), [facility] *PROCEDURE DATA* Procedure information: The patient was identified by two identifiers. This study was interpreted by [facility]. Pertinent images and digital data are archived for permanent storage and are available for subsequent review. Comparison was made to the study of 08/18/2017. Study status: Routine. Transthoracic echocardiography. M-mode, complete 2D, complete spectral Doppler, and color Doppler. A Transthoracic Echocardiogram was performed. Scanning was performed from the parasternal, apical, subcostal, and suprasternal notch acoustic windows. Images were obtained using an [id number] cardiac ultrasound machine. Image quality was good. Study completion: The patient tolerated the procedure well. History: PMH: Aortic stenosis. *CARDIAC ANATOMY* Left ventricle: The cavity size was normal. Wall thickness was increased in a pattern of severe LVH. Systolic function was hyperdynamic. The estimated ejection fraction was 65-70%. The tissue Doppler parameters were abnormal. Diastolic parameters were normal for age. There was no evidence of elevated ventricular filling pressure by Doppler parameters. Aortic valve: A bioprosthesis was present and functioning abnormally. The sewing ring appeared normal. Doppler: There was no regurgitation. VTI ratio of LVOT to aortic valve: 0.3. Valve area (VTI): 1cm^2. Indexed valve area (VTI): 0.5cm^2/m^2. Peak velocity ratio of LVOT to aortic valve: 0.24. Valve area (Vmax): 0.8cm^2. Indexed valve area (Vmax): 0.4cm^2/m^2. Mean velocity ratio of LVOT to aortic valve: 0.27. Valve area (Vmean): 0.9cm^2. Indexed valve area (Vmean): 0.4cm^2/m^2, suggesting severe patient -prosthesis mismatch. Mean gradient (S): 43.3mm Hg. Peak gradient (S): 78mm Hg. Aorta: Aortic root: The aortic root was normal in size. Ascending aorta: The ascending aorta was mildly dilated. Mitral valve: Doppler: There was no evidence for stenosis. There was mild regurgitation. Valve area by pressure half-time: 1.8cm^2. Indexed valve area by pressure half-time: 0.9cm^2/m^2. Left atrium: The atrium was normal in size. Atrial septum: No defect or patent foramen ovale was identified. Right ventricle: The cavity size was normal. Wall thickness was normal. Systolic function was normal. Pulmonic valve: Doppler: There was no evidence for stenosis. There was no significant regurgitation. Tricuspid valve: Doppler: There was mild regurgitation. Pulmonary artery: Poorly visualized. Systolic pressure could not be accurately estimated. Right atrium: The atrium was normal in size. Pericardium: There was no pericardial effusion. Systemic veins: Inferior vena cava: Well visualized. The vessel was patent and normal in size. The respirophasic diameter changes were in the normal range (greater than or equal to 50%), consistent with normal central venous pressure. Baseline ECG: Bradycardia. Measurements Left ventricle Value 08/18/2017 Reference LV ID, ED, PLAX 4.9 cm 5.1 3.5 - 6.0 LV ID, ES, PLAX 2.7 cm 3.3 2.1 - 4.0 LV PW thickness, ED, PLAX 1.4 cm 1.3 LV end-diastolic volume, 85 ml 50 1-p A2C LV ejection fraction, 1-p 72 % A2C LV end-diastolic volume, 65 ml 81 1-p A4C LV ejection fraction, 1-p 70 % 69 A4C LV e', lateral 0.09 m/sec LV E/e', lateral 6 LV e', medial 0.046 m/sec LV E/e', medial 11 LV e', average 0.068 m/sec LV E/e', average 7 Ventricular septum Value 08/18/2017 Reference IVS thickness, ED, PLAX 1.6 cm 1.4 LVOT Value 08/18/2017 Reference LVOT ID, A-P 2.0 cm 2.0 LVOT area 3.2 cm^2 3 LVOT peak velocity, S 1.07 m/sec 1.03 LVOT mean velocity, S 0.82 m/sec LVOT VTI, S 24.8 cm 25.5 LVOT peak gradient, S 4.6 mm Hg LVOT mean gradient, S 3 mm Hg 2.6 Stroke volume (SV), LVOT 79 ml DP Stroke index (SV/bsa), 39 ml/m^2 LVOT DP Aortic valve Value 08/18/2017 Reference Aortic valve peak 4.4 m/sec 4.5 velocity, S Aortic valve mean 3 m/sec 0 velocity, S Aortic valve VTI, S 83.0 cm Aortic mean gradient, S 43.3 mm Hg 41.3 Aortic peak gradient, S 78 mm Hg 81 VTI ratio, LVOT/AV 0.3 0.29 Aortic valve area, VTI 1 cm^2 0.9 Velocity ratio, peak, 0.24 0.23 LVOT/AV Aortic valve area, peak 0.8 cm^2 0.7 velocity Velocity ratio, mean, 0.27 LVOT/AV Aortic valve area, mean 0.9 cm^2 velocity Aortic valve area/bsa, 0.4 cm^2/m^2 mean velocity Aorta Value 08/18/2017 Reference Aortic root ID, ED 3.7 cm 3.5 Ascending aorta ID, A-P, S 3.6 cm Left atrium Value 08/18/2017 Reference LA ID, A-P, ES 2.8 cm LA ID/bsa, A-P 1.4 cm/m^2 <=2.2 LA volume/bsa, ES, 1-p A4C 31 ml/m^2 26 LA volume, ES, 2-p 62 ml LA volume/bsa, ES, 2-p 30 ml/m^2 LA/aortic root ratio 0.77 0.95 Mitral valve Value 08/18/2017 Reference Mitral E-wave peak 0.5 m/sec 0.57 velocity Mitral A-wave peak 0.72 m/sec 0.59 velocity Mitral deceleration time (H) 425 ms 306 150 - 230 Mitral pressure half-time 123 ms 89 Mitral E/A ratio, peak 0.69 0.98 Mitral valve area, PHT, DP 1.8 cm^2 2.5 Right atrium Value 08/18/2017 Reference RA area, ES, A4C 18.2 cm^2 15.8 8.3 - 19.5 Legend: (L) and (H) stew values outside specified reference range. I have personally reviewed the images and have reviewed and edited the reported findings. Electronically signed by Jan Bai MD 02/07/2019 15:14
[2019-02-07] MEDS: Docusate Sodium 100 MG CAP PO (14:47)
--- NOTE | 2019-02-07 15:27 | CHAPLAIN ---
Jey was resting in bed when I visited. During our conversation I learned the is Anabaptist, but not attending a shinto currently. He said he reads a daily devotional and prays to God, and I keep it simple. I was able to give him a copy of the devotional that he usually uses. He told me his family is [place] country so he doesn't expect any visitors. I explained my role and offered support.
--- NOTE | 2019-02-07 20:05 | PGE_ITS ---
Date of Service Date of service: 02/07/19 Time of Service: 20:05 Assessment and Plan (1) Palpitations: Current visit: Yes Status: Acute Exertional symptoms not apparently related to aortic valve dysfunction. Question possibility of ischemia in patient with underlying history of CAD. Will check nuclear stress tomorrow. (2) Aortic stenosis: Current visit: No Status: Chronic ECHO with moderate Aortic Stenosis of the bioprosthetic - Per review with cardiology ECHO appears unchanged by hemodynamic parameters in comparison to 08/2017, and stenosis may be due to patient/prosthetic mismatch - however no gross abnormality to explain patient's symptoms. Will recommend follow-up with own cardiology following discharge. Qualifiers: Cardiac valve disease etiology: etiology unspecified Qualified Code(s): I35.0 - Nonrheumatic aortic (valve) stenosis (3) Coronary artery disease: Current visit: No Status: Chronic Not on statin. Continue daily aspirin. Limited on BB by relatively low HR's. For nuclear stress as above. Qualifiers: Associated angina: without angina Coronary Disease-Associated Artery/Lesion type: [place] artery [place] vs. transplanted heart: [place] heart Qualified Code(s): I25.10 - Atherosclerotic heart disease of [place] coronary artery without angina pectoris (4) DVT prophylaxis: Current visit: Yes Status: Acute SC Lovenox. Subjective Interval history since last seen: Very pleasant 78 year old man with a prior history of tobacco abuse, CAD, and Aortic Stenosis, admitted from [facility] Emergency Department with a diagnosis of exertional palpitations. Mr. 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 His other history includes Former tobacco and EtOH use, Anxiety, Insomnia, and dyslipidemia. The patient follows chronically at [facility] with Dr. Maxime Najera - last seen in October of this year with apparent progression of his aortic stenosis. The patient reports that he has had onset of worsening palpitations with activity, described as skipped beats and pauses, with subjective pains in his LUE & neck with subjective dyspnea - progressive and worsening especially over the last month. He now reports experiencing these symptoms with minimal activity, last occuring as he was cleaning his floors. He initially was seen in the ED on 02/02, but refused admission - returned on 02/06 with similiar symptoms and was admitted to the hospital. Since admission the patient has ruled out with serial cardiac biomarkers. His initial CXR was negative for acute pathology. Follow-up ECHO showed an abnormal bioprosthetic aortic valve with moderate stenosis, although per discussion with interpreting nuclear equipment research engineer essentially unchanged from ECHO in August of 2017 (by hemodynamic parameters). He had an 18 beat run of NSVT this morning, but otherwise has had no pauses or significant arrhythmias by telemetry. He is scheduled for a nuclear stress tomorrow morning. Exam Narrative Exam Narrative: General: Patient appears comfortable, AAOX3, NAD Neck: Supple CV: Regular, nontachycardic, S1S2. 3/6 RUSB/LLSB murmur. Pulmonary: Clear to auscultation bilaterally, no crackles, wheezing, or rhonchi Abdomen: + Bowel Sounds, soft, nontender, nondistended Vascular: No lower extremity edema Psych: Normal mood and affect. Objective Objective Clinical Data: Vital Signs Temperature 36.6 C 02/07/19 19:12 Temperature Source Tympanic 02/07/19 19:12 Pulse 67 02/07/19 19:12 Pulse Rhythm Regular 02/07/19 14:50 Pulse 71 02/06/19 20:46 Respiratory Rate 18 02/07/19 19:12 Respiratory Effort Non-Labored 02/07/19 14:50 Respiratory Depth Normal 02/07/19 14:50 Respiratory Pattern Normal 02/07/19 14:50 Blood Pressure 171/71 H 02/07/19 19:12 Blood Pressure Mean 94 02/06/19 20:46 Blood Pressure Position Sitting 02/06/19 16:06 Pulse Oximetry 99 02/07/19 19:12 Oxygen Delivery Method Room Air 02/07/19 19:12 Oxygen Flow Rate 0 02/07/19 19:12 Pain Level 0 02/07/19 07:20 Intake & Output 02/06/19 02/07/19 02/07/19 23:59 11:59 23:59 Intake Total 490 / 490 Output Total 125 / 125 600 / 600 Balance -125 / -125 -110 / -110 Weight 83.3 kg 76.5 kg Intake: IV 10 Oral 480 / 480 Output: Urine 125 / 125 600 / 600 Other: Urine Color Yellow Yellow Urine Appearance Clear Clear Urine Odor None Voiding Methods Urinal Toilet Laboratory Results WBC 7.57 k/cumm (4.4-10.8) 02/06/19 16:10 RBC 4.98 m/cumm (4.50-6.00) 02/06/19 16:10 Hgb 15.6 g/dL (13.5-17.5) 02/06/19 16:10 Hct 45.7 % (40.0-50.0) 02/06/19 16:10 MCV 91.8 fL (80-95) 02/06/19 16:10 MCH 31.3 pg (27.0-33.0) 02/06/19 16:10 MCHC 34.1 g/dL (32.0-36.0) 02/06/19 16:10 RDW 13.0 % (11.8-14.1) 02/06/19 16:10 Plt Count 227 x1000/uL (130-400) 02/06/19 16:10 MPV 10.8 fL (8.0-11.0) 02/06/19 16:10 Immature Gran % 0.1 02/06/19 16:10 53.3 02/06/19 16:10 35.0 02/06/19 16:10 9.0 02/06/19 16:10 2.1 02/06/19 16:10 0.5 02/06/19 16:10 Absolute Neutrophils 4.03 k/cumm (1.2-6.7) 02/06/19 16:10 Absolute Lymphocytes 2.65 k/cumm (1.2-3.4) 02/06/19 16:10 Absolute Monocytes 0.68 k/cumm (0.11-0.7) 02/06/19 16:10 Absolute Eosinophils 0.16 k/cumm (0.0-0.7) 02/06/19 16:10 Absolute Basophils 0.04 k/cumm (0.0-0.2) 02/06/19 16:10 PT 10.3 sec (9.3-11.0) 02/06/19 16:10 INR 1.0 (0.9-1.1) 02/06/19 16:10 APTT 25.2 sec (21.0-31.4) 02/06/19 16:10 Sodium 140 mmol/L (136-145) 02/06/19 16:10 Potassium 3.8 mmol/L (3.5-5.1) 02/06/19 16:10 Chloride 104 mmol/L (98-107) 02/06/19 16:10 Carbon Dioxide 26.3 mmol/L (21.0-32.0) 02/06/19 16:10 9.7 mmol/L (3-11) 02/06/19 16:10 BUN 15 mg/dL (7-18) 02/06/19 16:10 1.03 mg/dL (0.70-1.30) 02/06/19 16:10 >= 60.00 (mL/min/1.73m2) 02/06/19 16:10 Glucose 136 mg/dL (70-100) H 02/06/19 16:10 Calcium 8.7 mg/dL (8.5-10.1) 02/06/19 16:10 Magnesium 2.1 mg/dL (1.8-2.4) 02/06/19 16:10 0.3 mg/dL (0.2-1.0) 02/06/19 16:10 AST 20 U/L (15-37) 02/06/19 16:10 ALT 30 U/L (12-78) 02/06/19 16:10 62 U/L (46-116) 02/06/19 16:10 < 0.05 ng/mL (0.00-0.06) 02/07/19 00:30 7.1 g/dL (6.4-8.2) 02/06/19 16:10 3.6 g/dL (3.4-5.0) 02/06/19 16:10 TSH 2.12 uIU/mL (0.36-3.74) 02/06/19 16:10
[2019-02-07] MEDS: Zolpidem 5 MG TAB PO (21:17)
[2019-02-07] MEDS: Enoxaparin 40 MG/0.4 ML SYR SC (21:17)
[2019-02-08] VITALS (7 sets, daily range): BP systolic 108–160; BP diastolic 80–91; PULSE 61–86; RESP 17–20; TEMP 35.3–36.9; O2SAT 97–99
[2019-02-08 07:23] LABS: BUN 15 mg/dL (7-18); CREATININE 0.96 mg/dL (0.70-1.30); Calcium 8.6 mg/dL (8.5-10.1); Chloride 104 mmol/L (98-107); Glucose 91 mg/dL (70-100); Potassium 4.5 mmol/L (3.5-5.1); Sodium 140 mmol/L (136-145)
[2019-02-08] MEDS: Normal Saline Flush 10 ML SYR IVP (07:46)
[2019-02-08] MEDS: Aspirin E.C. 81 MG TABEC PO (08:13)
--- NOTE | 2019-02-08 11:15 | MERGEMPI_ITS ---
*[facility]* *[facility]* [address] [place] [address] Myocardial Perfusion Imaging - SPECT Jose R protocol Date of study: 02/08/2019 *PATIENT PRESENTATION* Height: 180.3cm (71in) Blood Pressure: Weight: 78.6kg (173lb) BSA: 1.99m^2 Referring physician: Jan Bai MD Ordering physician: Landon Vaca Impressions: - Normal perfusion by Tc99m Sestamibi Imaging. - By visual estimation LV function appears normal. Summary: 1. Myocardial perfusion imaging: No myocardial perfusion defects noted. 2. The calculated left ventricular ejection fraction after stress: 48%. LV global systolic function is mildly reduced. Diffuse left ventricular regional motion abnormalities. Indication: R07.9. History: REASON FOR TESTING:FOR THE PAST MONTH, PT HAS BEEN EXPERIENCING CHEST TIGHTNESS, DIZZINESS, AND PALPITATIONS. THESE HAVE BEEN PROGESSIVELY WORSE OVER TIME. PMH:AORTIC VALVE STENOSIS WITH REPALCEMENT, CAD WITH CABG OF LAD AND PDA, WITH PROGRESSION OF DISEASE ON HEART CATH IN 2011, ANXIETY, CONSTIPATION, DYSPHAGIA, ED, GERD,HYPERLIPIDEMIA, LOW BACK PAIN, FAMILY:FATHER- CAD, AORTIC ANURYSM. MOTHER- CAD, HEART FAILURE. SMOKING: QUIT 1983, SMOKED 1PPD X 37 YEARS. EXCERCISE: NO REGULAR EXCERCISE. Risk factors: Family history of coronary artery disease. Cholesterol: 190mg/dl. HDL: 53mg/dl. LDL: 128mg/dl. Triglycerides: 101mg/dl. ALLERGIES: IODINE HOME MEDICATIONS: PEPPERMINT OIL 90 MG BID, CLORAZEPATE DIPOTASSIUM 3.5 MG HS NEEDED, ASPIRIN 81 MG BID. SEE INPATIENT MEDICATIONS. Imaging Technique: Protocol: Jose R protocol. Acquisition: Gated SPECT; 1 day - rest/stress. The patient was imaged in the supine position. Attenuation correction used. Isotope administration: - Rest. Tc[99m]-sestamibi. Dose: 10.1mCi. Injection time: 11:30 AM. Injection to stress time: 00:45. - Stress. Tc[99m]-sestamibi. Dose: 32mCi. Injection time: 01:45 PM. 1-2 min before end of exercise Baseline ECG: LAST EKG 02/06/19-SINUS RHYTHM, NONSPECIFIC ST DEPRESSION, T-ABNORMALITY. POSSIBLE ANTEROLATERAL ISCHEMIA. TODAY'S EKG-SINUS BRADYCARDIA, HR 58. Stress protocol: + +---+ +---+ !Stage !HR !BP (mmHg) !Sat! + +---+ +---+ !Baseline supine !58 !170/86 (114)!---! + +---+ +---+ !Baseline standing !69 !168/80 (109)!95%! + +---+ +---+ !Stage I; 1.7mph, 10degrees; 3 min !103!170/82 (111)!95%! + +---+ +---+ !Stage II; 2.5mph, 12degrees; 3 min!104!178/92 (121)!---! + +---+ +---+ !Recovery; 1 min !105!180/78 (112)!---! + +---+ +---+ !Recovery; 3 min !80 !178/82 (114)!---! + +---+ +---+ !Recovery; 6 min !77 !168/82 (111)!---! + +---+ +---+ * Stress results: The rate-pressure product for the peak heart rate and blood pressure was 08260hr Hg/min. Stress ECG: EXCERCISE TESTING ENDED IN 8 MINS, 39 SECS DUE TO FATIGUE. MAX HR WAS 122, 85% OF TARGET. HYPERTENSIVE AT BASELINE, WITH A NORMAL BLOOD PRESSURE RESPONSE. METS: 10.16 ECTOPY:FREQUENT PVCS, WITH TRIGEMINY OF PVC'S NOTED AFTER 3 MINS OF EXCERCISE. ANGINA: NO REPORTED CHEST PAIN OR PRESSURE. ISCHEMIA: NO ISCHEMIC CHANGES NOTED. FUNCTIONAL CAPACITY: ABOVE AVERAGE CAPACITY. NOTE-PATIENT ARRIVED WITHOUT SHOES, ONLY HOSPITAL SOCKS. HE FELT UNSURE OF HIS FOOTING WITHOUT SHOES, AND THEREFORE DID NOT EXCERCISE LONG HE FELT HE COULD HAVE. Myocardial perfusion: Imaging information: gated. No myocardial perfusion defects noted. Ventricular Function (Wall Motion): The calculated left ventricular ejection fraction after stress: 48%. LV global systolic function is mildly reduced. Diffuse left ventricular regional motion abnormalities. Study data: Cassy Lafleur MD supervised and was readily available during the procedure. This study was interpreted by [facility]. Study status: Routine. Consent: The risks, benefits, and alternatives to the procedure were explained to the patient and informed consent was obtained. Procedure: Initial setup. A baseline ECG was recorded. Surface ECG leads and manual cuff blood pressure measurements were monitored. Heart sounds: Normal. Lung sounds: Normal. Treadmill exercise testing was performed using the Jose R protocol. Study completion: All catheters inserted during the procedure were removed. The patient tolerated the procedure well and was discharged from the lab. Discharge: The patient left the laboratory in stable condition. Birthdate: Patient birthdate: 1940. Sex: Gender: male. Study date: Study date: 02/08/2019. Study time: 00:01 AM. Signature Documentation: - The imaging portion of this study was interpreted by Nuclear Life Sciences Instructor Denice Pang MD. - The imaging portion of this study was interpreted by Nuclear Radiologist Gus Santos MD. - The Stress ECG portion of this study was interpreted by Denice Pang MD. Electronically signed by Denice Pang 02/08/2019 15:28
[2019-02-08] MEDS: Docusate Sodium 100 MG CAP PO (14:48)
--- NOTE | 2019-02-08 15:55 | DSE_ITS ---
Date of service: 02/08/19 Time of Service: 15:56 DS: Diagnosis Discharge Diagnosis (1) Aortic stenosis: Status: Chronic (2) Chest pain: Status: Acute (3) Coronary artery disease: Status: Chronic Discharge Plan Disposition Condition: Stable Discharge Details Chief Complaint: Dizzy/Sync Clinical Impression: Acute dyspnea, Heart palpitations Reason For Visit: DYSPNEA Admit Date/Time: 02/06/19 20:20 Admit Provider: Robert Musa Attending Provider: Robert Musa Primary Care Provider: Anahi Gregorio ED Provider: Angle Feliz Hospital Course Hospital Course: Chief Complaint: Exertional Palpitations HPI: Very pleasant 78 year old man with a prior history of tobacco abuse, CAD, and Aortic Stenosis, admitted from [facility] Emergency Department with a diagnosis of exertional palpitations. Mr. 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 His other history includes Former tobacco and EtOH use, Anxiety, Insomnia, and dyslipidemia. The patient follows chronically at [facility] with Dr. Maxime Najera - cem seen in October of this year with apparent progression of his aortic stenosis. The patient reports that he has had onset of worsening palpitations with activity, described as skipped beats and pauses, with subjective pains in his LUE & neck with subjective dyspnea - progressive and worsening especially over the last month. He now reports experiencing these symptoms with minimal activity, last occuring as he was cleaning his floors. He initially was seen in the ED on 02/02, but refused admission - returned on 02/06 with similiar symptoms and was admitted to the hospital. Since admission the patient has ruled out with serial cardiac biomarkers. His initial CXR was negative for acute pathology. Follow-up ECHO showed an abnormal bioprosthetic aortic valve with moderate stenosis, although per discussion with interpreting professor of early childhood education essentially unchanged from ECHO in August of 2017 (by hemodynamic parameters). Subsequent Nuclear stress was performed today, interpreted as normal with excellent exercise capacity. While hospitalized, Mr. Pitts had a one time run of NSVT (18 beats), but otherwise had no significant pauses or arrhythmias. Hospital Course: (1) Palpitations: Exertional symptoms apparently not related to aortic valve dysfunction. Questioned possibility of ischemia in patient with underlying history of CAD, but with negative Nuclear Stress Test. Given run of NSVT and patient's description of skipped beats and pauses, question potential arrhythmia/pause as cause of symptoms. Discussed case with cardiology at [facility] - plan will be for obtaining an event monitor as an outpatient - unfortunately [employer]IO monitors are no longer covered by insurance at time of discharge, per Case Management. (2) Aortic stenosis: ECHO with moderate Aortic Stenosis of the bioprosthetic - Per review with cardiology ECHO appears unchanged by hemodynamic parameters in comparison to 08/2017, and stenosis may be due to patient/prosthetic mismatch - however no gross abnormality to explain patient's symptoms. Will recommend follow-up with own cardiology following discharge, with continued monitoring and serial ECHO's in future. (3) Coronary artery disease: Not on statin. Continue daily aspirin. Limited on BB by relatively low HR's. For nuclear stress as above. (4) DVT prophylaxis: SC Lovenox. Home Meds and New Rx's Prescriptions: Continued peppermint oil 90 mg capsule,delayed,extend.release 90 mg PO BID RF: 0 aspirin [Aspir-81] 81 MG tablet,delayed release (DR/EC) 81 mg PO BID RF: 0 clorazepate dipotassium 7.5 MG tablet 3.5 mg PO HS PRNRF: 0 Discharge Instructions Additional Instructions: Please see your professor of early childhood education within 2-4 weeks of discharge. Activity:: Activity as Tolerated Activity:: Activity as Tolerated Equipment/Supplies:: Event Monitor Diet:: Low Sodium Discharge Orders Other Ambulatory Orders: Cardiac Event Recorder (Outpt) (ONCE) Timeframe: [id number] Location: None Selected Ordered By: Landon Vaca Exam Narrative Exam Narrative: General: Patient appears comfortable, AAOX3, NAD Neck: Supple CV: Regular, nontachycardic, S1S2. 3/6 RUSB/LLSB murmur. Pulmonary: Clear to auscultation bilaterally, no crackles, wheezing, or rhonchi Abdomen: + Bowel Sounds, soft, nontender, nondistended Vascular: No lower extremity edema Psych: Normal mood and affect. DS: Data Vitals/I&O Vitals and I&O: Vital Signs Temperature 36.1 C L 02/08/19 15:17 Temperature Source Tympanic 02/08/19 15:17 Pulse 70 02/08/19 15:17 Pulse Rhythm Regular 02/08/19 14:42 Pulse 71 02/06/19 20:46 Respiratory Rate 19 02/08/19 15:17 Respiratory Effort Non-Labored 02/08/19 14:42 Respiratory Depth Normal 02/08/19 14:42 Respiratory Pattern Normal 02/08/19 14:42 Blood Pressure 152/91 H 02/08/19 15:17 Blood Pressure Mean 94 02/06/19 20:46 Blood Pressure Position Sitting 02/06/19 16:06 Pulse Oximetry 98 02/08/19 15:17 Oxygen Delivery Method Room Air 02/08/19 15:17 Oxygen Flow Rate 0 02/08/19 15:17 Pain Level 0 02/08/19 15:17 Intake & Output 02/07/19 02/08/19 02/08/19 23:59 11:59 23:59 Intake Total 240 / 730 130 / 130 Balance 240 / 130 130 / 130 Weight 76.6 kg Intake: IV 10 / 10 Oral 240 / 720 120 / 120 Other: Urine Appearance Clear Comment Patient voids in toilet. Flushed. Urine not assessed at this time. Voiding Methods Toilet Toilet Completed studies during hospitalization [Text1]: Exam(s) 02/05/2019 a RAD:XR chest 2V PA & lateral SYMPTOMS/DIAGNOSIS: SHORTNESS OF BREATH, R06.02 PA AND LATERAL CHEST: Comparison is made with [id number]. The heart size is within normal limits. Sternal wires and aortic valve prosthesis are noted. The lungs appear somewhat hyperinflated but clear. No infiltrate, effusion or pulmonary edema is seen. There is no evidence of pneumothorax. IMPRESSION: Hyperinflation, otherwise negative. Exam(s) a US:US echocardiogram Date of study: 02/07/2019 Transthoracic Echocardiography M-mode, complete 2D, complete spectral Doppler, and color Doppler *STUDY CONCLUSIONS* Impressions: Very similar bioprosthetic aortic valve echo hemodynamic parameters compared to 2018 study. Summary: 1. Left ventricle: The cavity size was normal. Wall thickness was increased in a pattern of severe LVH. Systolic function was hyperdynamic. The estimated ejection fraction was 65-70%. Diastolic parameters were normal for age. There was no evidence of elevated ventricular filling pressure by Doppler parameters. 2. Aortic valve: A bioprosthesis was present and functioning abnormally, moderately stenotic. The sewing ring appeared normal. Peak velocity (S): 4.4m/sec. Mean gradient (S): 43.3mm Hg. VTI ratio of LVOT to aortic valve: 0.3. Acceleration time <100 ms. Indexed valve area (Vmean): 0.4cm^2/m^2, suggesting severe patient -prosthesis mismatch. 3. Mitral valve: There was mild regurgitation. Valve area by pressure half-time: 1.8cm^2. 4. Right ventricle: The cavity size was normal. Wall thickness was normal. Systolic function was normal. 5. Atrial septum: No defect or patent foramen ovale was identified. 6. Pulmonary arteries: Systolic pressure could not be accurately estimated. 7. Inferior vena cava: The vessel was patent and normal in size. The respirophasic diameter changes were in the normal range (greater than or equal to 50%), consistent with normal central venous pressure. Exam(s) [id number] US:Echocardiogram Heart Date of study: 08/18/2017 Transthoracic Echocardiography M-mode, complete 2D, complete spectral Doppler, and color Doppler *STUDY CONCLUSIONS* Impressions: The 2011 study was not available for direct comparison, however there have been changes from the report of that study. Summary: 1. Left ventricle: The cavity size was normal. Wall thickness was increased increased in a pattern of mild to moderate LVH. Systolic function was vigorous. The estimated ejection fraction was 65-70%. Wall motion was normal; there were no regional wall motion abnormalities. The outflow tract showed no obstruction. 2. Aortic valve: A 2.5cmbioprosthesis was present. Valve mobility was restricted. Transvalvular velocity was increased more than expected, due to stenosis. There was mild regurgitation. Peak velocity (S): 4.5m/sec. Mean gradient (S): 41.3mm Hg. VTI ratio of LVOT to aortic valve: 0.29. Postop peak velocity 1.7 m/sec, mean gradient 12 mmHg, DVI 0.55. 3. Right ventricle: The cavity size was normal. Wall thickness was normal. Systolic function was normal. 4. Tricuspid valve: There was mild-moderate regurgitation. Exam(s) a NM:NM MPI rest & stress grp Jose R protocol Date of study: 02/08/2019 *PATIENT PRESENTATION* Height: 180.3cm (71in) Blood Pressure: Weight: 78.6kg (173lb) BSA: 1.99m^2 Referring physician: Jan Bai MD Ordering physician: Landon Vaca Impressions: - Normal perfusion by Tc99m Sestamibi Imaging. - By visual estimation LV function appears normal. Summary: 1. Myocardial perfusion imaging: No myocardial perfusion defects noted. 2. The calculated left ventricular ejection fraction after stress: 48%. LV global systolic function is mildly reduced. Diffuse left ventricular regional motion abnormalities. 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
--- NOTE | 2019-02-08 16:06 | PDOC.CMDIS ---
- If Service Date Differs Date of service: 02/08/19 Time of Service: 16:06 LACE Index Scoring Tool - Questions: Length of Stay (in days): 2 Acuity (Admit via E.D.?): Yes E.D. Visits: 3 - Answers: Total Score: 8 Risk of Readmission: Low Risk Care Management Discharge Reason for Hospitalization: Aortic stenosis Discharge Plan: Adithya will be discharged home with no new services. His lady friend Anisa will transport via private vehicle. Adithya will follow up with his PCP, cartographic designer and discharge plan of care. Patient/Family Education Needs: Discharge plan, limitations, follow up plan, Ask me Three.
--- NOTE | 2019-03-12 13:05 | CER_ITS ---
DATE OF DICTATION: March 12, 2019 STUDY INDICATION: Palpitations. REQUESTING PROVIDER: Anahi Gregorio N.P. FINDINGS: The patient was monitored for 16 days and 23 hours. Average heart rate 62 bpm, range 54 to 104 bpm. Occasional ventricular ectopy. 1% PVC's. One 5-beat ventricular run, 154 bpm. No atrial fibrillation. No pauses greater than 3 seconds. No high-degree heart block. Four patient events. Three events correlated with PVC's. One event did not correlate with arrhythmias. FINAL INTERPRETATION: Occasional PVC's and one burst of ventricular tachycardia. Reported symptoms correlated with PVC's.
== END 2019-02-08 17:32 | disposition home or self-care (01) | DRG 310 ==
LOC: ER 20:46 → MS 21:04
PROVIDERS: Admitting Provider Internal Medicine; Emergency Provider Physician Assistant; PCP Nurse Practitioner; Visit Provider Internal Medicine
DX: R00.2 Palpitations (principal); I35.0 Nonrheumatic aortic (valve) stenosis; R07.9 Chest pain, unspecified; I25.10 Atherosclerotic heart disease of native coronary artery without angina pectoris; Z87.891 Personal history of nicotine dependence; Z95.3 Presence of xenogenic heart valve; Z95.1 Presence of aortocoronary bypass graft
CPT/HCPCS: 36415; 78452; 80048; 80053; 93005; 93016; 93018; 93270; 93306; 99223; 99232; 99239; 99285; J1650; 83735; 84443; 84484; 85025; 85610; 85730; 93010; 93017

== ENCOUNTER 2019-03-12 11:33 | Outpatient (CLI) | payer MEDICARE, MEDICAID, SELFPAY | END 2019-03-12 11:53 | PROVIDERS: PCP Nurse Practitioner; Referring Provider Nurse Practitioner; Visit Provider Student in an Organized Health Care Education/Training Program | DX: R00.2 Palpitations (principal); I49.3 Ventricular premature depolarization; I47.2 Ventricular tachycardia | CPT/HCPCS: 93228 ==

== ENCOUNTER → 2019-08-29 10:22 | Outpatient (BNVA) | payer MEDICARE, MEDICAID, SELFPAY | PROVIDERS: PCP Nurse Practitioner; Referring Provider Nurse Practitioner; Visit Provider Internal Medicine Cardiovascular Disease | DX: I25.10 Atherosclerotic heart disease of native coronary artery without angina pectoris; Z95.2 Presence of prosthetic heart valve | CPT/HCPCS: 99213 ==

== ENCOUNTER → 2020-03-19 09:28 | Outpatient (BNVA) | payer MEDICARE, MEDICAID, SELFPAY | PROVIDERS: PCP Nurse Practitioner; Referring Provider Nurse Practitioner; Visit Provider Internal Medicine Cardiovascular Disease | DX: I25.10 Atherosclerotic heart disease of native coronary artery without angina pectoris (principal); Z95.2 Presence of prosthetic heart valve | CPT/HCPCS: 99214 ==

== ENCOUNTER 2020-04-02 09:04 | Outpatient (REF) | payer MEDICARE, MEDICAID, SELFPAY ==
[2020-04-02 19:05] LABS: ALT 34 U/L (16-63); AST 30 U/L (15-37); Albumin 3.8 g/dL (3.4-5.0); Alkaline Phosphatase 57 U/L (46-116); Anion Gap 6.2 mmol/L (3-11); BUN 12 mg/dL (7-18); Bilirubin, Total 0.6 mg/dL (0.2-1.0); CO2 27.8 mmol/L (21.0-32.0); CREATININE 0.95 mg/dL (0.70-1.30); Calcium 8.9 mg/dL (8.5-10.1); Calculated LDL 141 mg/dL (<100); Chloride 104 mmol/L (98-107); Cholesterol 209 mg/dL (<200); Glucose 94 mg/dL (74-106); HDL Cholesterol 56 mg/dL (40-60); Potassium 4.4 mmol/L (3.5-5.1); Sodium 138 mmol/L (136-145); Total Protein 7.1 g/dL (6.4-8.2); Triglyceride 61 mg/dL (<150)
== END 2020-04-02 09:24 ==
LOC: NCHCN 09:04
PROVIDERS: PCP Nurse Practitioner; Visit Provider Nurse Practitioner
DX: I25.10 Atherosclerotic heart disease of native coronary artery without angina pectoris (principal); E78.5 Hyperlipidemia, unspecified
CPT/HCPCS: 80053; 80061

== ENCOUNTER → 2020-08-31 09:34 | Outpatient (BNVA) | payer MEDICARE, MEDICAID, SELFPAY | PROVIDERS: PCP Nurse Practitioner; Referring Provider Nurse Practitioner; Visit Provider Internal Medicine Cardiovascular Disease | DX: I25.10 Atherosclerotic heart disease of native coronary artery without angina pectoris (principal); Z95.2 Presence of prosthetic heart valve; R00.2 Palpitations; Z95.5 Presence of coronary angioplasty implant and graft | CPT/HCPCS: 99214 ==

== ENCOUNTER 2020-09-23 08:59 | Emergency (ER) | payer MEDICARE, MEDICAID, SELFPAY ==
[2020-09-23 09:02] VITALS: BP 143/83; PULSE 80; RESP 16; TEMP 36.4; O2SAT 98
--- NOTE | 2020-09-23 09:45 | ED.GENADUL_ITS ---
Discharge Plan Disposition Patient Disposition: HOME Condition: Good Discharge Details Clinical Impression: Abrasion, corneal Primary Care Provider: Anahi Gregorio ED Provider: Evangelina Kwon Home Meds and New Rx's Prescriptions: No Action clorazepate dipotassium 3.75 mg tablet 3.75 mg PO QHS PRNRF: 0 metoprolol succinate 25 mg tablet extended release 24 hr 25 mg PO DAILY RF: 0 aspirin [Aspir-81] 81 MG tablet,delayed release (DR/EC) 81 mg PO BID RF: 0 Discharge Instructions Instructions: Corneal Abrasion (ED) Additional Instructions: Erythromycin ointment, half-inch strip every 6 hours while awake Should you have symptoms longer than 3 days, I recommend you follow-up with [facility], I have listed the number for you below Please return if vision change or with any new or worsening complaints [address] [place] [address] , [place] [address] ? ~1.6 mi [facility] t Discharge Data Discharge Date/Time-TO BE ENTERED AT DEPARTURE: 09/23/20 10:02 Medical Decision Making Obvious abrasion on the lamp exam, lids were everted and there is no evidence of foreign body I have given patient erythromycin ointment to use for the next 3 days, she does not have symptomatic improvement He is instructed to follow-up with the service promoter salesperson which I have supplied him the number for His visual acuity is 20/70 OU, OD, and OS, discussed with reading glasses there is no clinical evidence of glaucoma no obvious foreign body, Or iritis Differential Diagnosis Differential Diagnosis: Glaucoma, corneal abrasion, foreign body, iritis Medical Records Medical records reviewed: Yes I reviewed the patient's medical records. HPI This 80-year-old gentleman with history of coronary artery disease presents with report of left eye irritation. He states he was working underneath his truck and felt a piece of debris go into his eye. This was not high impact. He has not wearing glasses at that time. He states that he is attempted to irrigate without alleviation in symptoms. He denies any change in his vision. He states he had some mild increased tearing. He denies any associated headache. Predominantly his symptoms are worsened with blinking. General Date/Time Provider Initiated Documentation: 09/23/20 09:05 . Related Data Home Medications Medication Instructions Recorded Confirmed aspirin [Aspir-81] 81 mg PO BID 09/18/13 09/23/20 metoprolol succinate 25 mg 25 mg PO DAILY 08/29/19 09/23/20 tablet,extended release 24 hr clorazepate dipotassium 3.75 mg 3.75 mg PO QHS PRN 08/31/20 09/23/20 tablet Allergies Allergy/AdvReac Type Severity Reaction Status Date / Time iodine Allergy Severe Verified 09/23/20 09:06 simvastatin AdvReac Intermediate upset Verified 09/23/20 09:06 stomach General Stated Complaint: EyeProblem BRITTON: 4 Review of Systems Narrative: Review of systems obtained x7 aside from where indicated in HPI [facility] Medical History (Updated 09/23/20 @ 09:42 by ASHKAN Ayala) Anxiety disorder Aortic stenosis Chest discomfort Constipation (~05/2017) Coronary artery disease Dysphagia ED (erectile dysfunction) of organic origin GERD (gastroesophageal reflux disease) History of tobacco use Hyperlipidemia Low back pain Lower urinary tract symptoms Normal colonoscopy Sleep disturbance Surgical History H/O aortic valve replacement S/P CABG (coronary artery bypass graft) Social History Smoking/Tobacco Use Status: Former Tobacco Use Quit Date: 07/03/84 Tobacco: How many years used: 15 Smokeless tobacco user: other Smoking risk assessment performed?: Yes Alcohol Intake: never Drug use: Never Substance use type: does not use What type of physical activity do you participate in: walking and resistance training Frequency: 3-4 times per week Do you feel safe at home: Yes Do you feel safe in your relationship?: Yes Exam Const General: cooperative and comfortable Eyes Pupils: PERRL EOM: EOM intact bilaterally Other: left lid full everted without obvious foreign body Resp Effort & Inspection: normal respiratory effort Cardio Rate: regular rate Neuro General: patient alert and patient oriented x3 Course Vital Signs Vital signs: Vital Signs Temperature 36.4 C L 09/23/20 09:02 Pulse 80 09/23/20 09:02 Respiratory Rate 16 09/23/20 09:02 Blood Pressure 143/83 H 09/23/20 09:02 Pulse Oximetry 98 09/23/20 09:02 Temperature 36.4 C L 09/23/20 09:02 Temperature Source Temporal Artery Scan 09/23/20 09:02 Pulse 80 09/23/20 09:02 Respiratory Rate 16 09/23/20 09:02 Respiratory Effort Non-Labored 09/23/20 09:05 Blood Pressure 143/83 H 09/23/20 09:02 Blood Pressure Position Sitting 09/23/20 09:02 Pulse Oximetry 98 09/23/20 09:02 Oxygen Delivery Method Room Air 09/23/20 09:02 Oxygen Flow Rate 0 09/23/20 09:02 Pain Level 5 09/23/20 09:02
[2020-09-23] MEDS: Erythromycin Ophth Oint 3.5 GM TUBE (09:55)
== END 2020-09-23 10:02 | disposition home or self-care (01) ==
PROVIDERS: Emergency Provider Physician Assistant; PCP Nurse Practitioner
DX: S05.02XA Injury of conjunctiva and corneal abrasion without foreign body, left eye, initial encounter (principal); X58.XXXA Exposure to other specified factors, initial encounter
CPT/HCPCS: 99283

== ENCOUNTER 2021-02-22 09:19 | Emergency (ER) | payer MEDICARE, MEDICAID, SELFPAY ==
[2021-02-22 09:27] VITALS: BP 126/103; PULSE 74; RESP 18; TEMP 36.7; O2SAT 96
--- NOTE | 2021-02-22 09:35 | W.ED.GENAD ---
Discharge Plan Disposition Patient Disposition: HOME Discharge Details Clinical Impression: Urinary hesitancy Primary Care Provider: Anahi Gregorio ED Provider: Robert Kohler Home Meds and New Rx's Prescriptions: New tamsulosin [Flomax] 0.4 mg capsule 0.4 mg PO DAILY Qty: 7 RF: 0 Continued clorazepate dipotassium 3.75 mg tablet 3.75 mg PO QHS PRNRF: 0 metoprolol succinate 25 mg tablet extended release 24 hr 25 mg PO DAILY RF: 0 aspirin [Aspir-81] 81 MG tablet,delayed release (DR/EC) 81 mg PO BID RF: 0 Discharge Instructions Additional Instructions: Bladder scan does not reveal any true urinary retention. Urinalysis, CBC, CMP not reveal any obvious emergent process. I am giving you a very limited prescription for Flomax, please take as directed. I am also giving you the name and number of Dr. Latham, our urologist, I would like you to contact his office later today or tomorrow to discuss outpatient reevaluation. Please watch for new or worsening symptoms and return to the ER for any concerns. Referrals: Vitaly Latham MD [ [facility] STAFF PHYSICIAN] - Medical Decision Making 80-year-old gentleman reports a year-long history of urinary symptoms, worse over the past couple of weeks but better since drinking increased water and cranberry juice. Patient was able to void upon arrival, post void bladder scan reveals an average of 50-60 cc, the highest reading was 104. No clear retention. He appears well, nontoxic, is afebrile, abdomen soft, nontender, back with diffuse mild lumbar discomfort but no CVA tenderness. Will obtain CBC, CMP, urinalysis. Evaluation could be consistent with BPH but would like to further evaluate for potential cystitis, hematuria, renal stone, pyelonephritis, renal disease, etc. Patient is agreeable to this plan. Laboratory values do not reveal any obvious emergent process. White blood cell count of 10.52 hemoglobin 16 hematocrit 47.6 platelet count 217. Chemistries unremarkable, electrolytes normal, GFR greater than 60, urinalysis negative. Patient is able to urinate, no true signs of retention. CBC, CMP, urinalysis all unremarkable. I see no clear indication for emergent CT imaging. Patient is requesting something to help him urinate in the short-term. I have placed him on the urology list as I do believe a further urologic work-up is indicated, but patient will be provided 0.4 mg Flomax daily for the next 7 days until he can be seen by urology. Standard discharge and return precautions given. This documentation was generated using [employer] dictation system, please disregard any oddities of phrase or misspellings. Medical Records Medical records reviewed: Yes I reviewed the patient's medical records. Lab Data Lab results reviewed: Yes I reviewed the patient's lab results. Labs: Laboratory Tests Range/Units 02/22/21 02/22/21 02/22/21 09:25 10:00 10:00 WBC (4.4-10.8) 10^3/uL 10.52 RBC (4.36-5.78) 10^6/uL 5.14 Hgb (13.5-17.5) g/dL 16.0 Hct (40.0-50.0) % 47.6 MCV (80-95) fL 92.6 MCH (27.0-33.0) pg 31.1 MCHC (32.0-36.0) % 33.6 RDW (11.8-14.1) % 12.4 Plt Count (130-400) 10^3/uL 217 MPV (8.0-11.0) fL 10.5 Immature Gran % 0.2 Neutrophils % 65.1 Lymphocytes % 20.2 Monocytes % 11.3 Eosinophils % 2.7 Basophils % 0.5 Nucleated RBC % % 0 Absolute Neutrophils (1.2-6.7) 10^3/uL 6.85 H Absolute Lymphocytes (1.2-3.4) 10^3/uL 2.13 Absolute Monocytes (0.1-0.8) 10^3/uL 1.19 H Absolute Eosinophils (0.0-0.7) 10^3/uL 0.28 Absolute Basophils (0.0-0.2) 10^3/uL 0.05 Sodium (136-145) mmol/L 138 Potassium (3.5-5.1) mmol/L 4.1 Chloride (98-107) mmol/L 103 Carbon Dioxide (21.0-32.0) mmol/L 24.7 Anion Gap (3-11) mmol/L 10.3 BUN (7-18) mg/dL 12 Creatinine (0.70-1.30) mg/dL 0.9 Estimated GFR/1.73 m2 (mL/min/1.73m2) >= 60.00 Glucose (74-106) mg/dL 97 Calcium (8.5-10.1) mg/dL 8.6 Total Bilirubin (0.2-1.0) mg/dL 0.5 AST (15-37) U/L 28 ALT (16-63) U/L 29 Alkaline Phosphatase (46-116) U/L 78 Total Protein (6.4-8.2) g/dL 7.6 Albumin (3.4-5.0) g/dL 3.7 Urine Color (Yellow) Yellow Urine Clarity (Clear) Clear Urine pH (5-8) 6.0 Ur Specific [place] (1.005-1.025) 1.010 Urine Protein (Negative) mg/dL Negative Urine Ketones (Negative) mg/dL Negative Urine Blood (Negative) Negative Urine Nitrite (Negative) Negative Urine Bilirubin (Negative) Negative Urine Urobilinogen (Up TO 0.2) EU/dL 0.2 Ur Leukocyte Esterase (Negative) Negative Urine Glucose (Negative) mg/dL Negative HPI General Mode of arrival: ambulatory. Date/Time Provider Initiated Documentation: 02/22/21 09:20. Limitations to Documentation: no limitations. Information obtained by: patient. HPI Narrative: This is an 80-year-old male, past medical history of aortic stenosis, CAD, palpitations, aortic valve replacement, anxiety, GERD, hyperlipidemia, low back pain, presenting to the ER for evaluation of urinary issues. Patient states that overall symptoms have been going on for at least 1 year, at that time initially thought of seeing a urologist the symptoms resolved. Patient reports worsening symptoms over the past couple of weeks, urinary frequency, feeling as though he cannot empty completely, and states I just do not go like I used to. He denies fever, abdominal pain, nausea, vomiting, hematuria, penile discharge, pain, pain in his testicles or scrotum. Patient does admit to chronic low back pain, typically feels better after moving around in the morning. Patient states that his current back pain feels pretty similar to his chronic back pain. Patient wanted to make an appointment with a urologist, forgot his proof of Covid vaccination card, and so therefore could not see urology, came to the ER instead. Patient states that over the past couple of weeks he began increasing his overall water intake as well as drinking cranberry juice, he feels like this has helped greatly as his symptoms have decreased over the past few days. Related Data Home Medications Medication Instructions Recorded Confirmed aspirin [Aspir-81] 81 mg PO BID 09/18/13 02/22/21 metoprolol succinate 25 mg 25 mg PO DAILY 08/29/19 02/22/21 tablet,extended release 24 hr clorazepate dipotassium 3.75 mg 3.75 mg PO QHS PRN 08/31/20 02/22/21 tablet tamsulosin [Flomax] 0.4 mg PO DAILY #7 cap 02/22/21 Previous Rx's Medication Instructions Recorded tamsulosin [Flomax] 0.4 mg PO DAILY #7 cap 02/22/21 Allergies Allergy/AdvReac Type Severity Reaction Status Date / Time iodine Allergy Severe Verified 02/22/21 09:34 simvastatin AdvReac Intermediate upset Verified 02/22/21 09:34 stomach General Stated Complaint: Urinary BRITTON: 3 Review of Systems Constitutional Constitutional: Denies fever(s) and Denies weakness Cardiovascular Cardiovascular: Denies chest pain and Denies dyspnea Respiratory Respiratory: Denies dyspnea Gastrointestinal Gastrointestinal: Denies abdominal pain, Denies nausea and Denies vomiting Genitourinary Genitourinary: Denies hematuria, Denies genital pain, Denies dysuria, Denies testicular pain, Reports urinary hesitancy and Reports urinary urgency Musculoskeletal Musculoskeletal: Reports back pain (Chronic) Integumentary/Breasts Skin/Breast: Denies rash Neurologic Neurologic: Denies weakness [facility] Medical History Anxiety disorder Aortic stenosis Chest discomfort Constipation (~05/2017) Coronary artery disease Dysphagia ED (erectile dysfunction) of organic origin GERD (gastroesophageal reflux disease) History of tobacco use Hyperlipidemia Low back pain Lower urinary tract symptoms Normal colonoscopy Sleep disturbance Surgical History H/O aortic valve replacement S/P CABG (coronary artery bypass graft) Social History Smoking/Tobacco Use Status: Former Tobacco Use Quit Date: 01/01/85 Tobacco: How many years used: 15 Smokeless tobacco user: other Smoking risk assessment performed?: Yes Alcohol Intake: former Year quit: 1979 Drug use: Never Substance use type: does not use What type of physical activity do you participate in: walking and resistance training Frequency: 3-4 times per week Do you feel safe at home: Yes Do you feel safe in your relationship?: Yes Exam Const General: cooperative, healthy appearing, comfortable and no acute distress Orientation: alert and awake HENVT Head: normal to inspection, normocephalic and atraumatic Eyes General: appearance normal, both eyes and all related structures Conjunctivae: conjunctivae normal Neck Neck: normal visual inspection, trachea midline and supple Resp Effort & Inspection: normal respiratory effort and able to speak in complete sentences Auscultation: clear to auscultation bilaterally Cardio Rate: regular rate Rhythm: regular rhythm GI Palpation: soft, not firm, no guarding, no pulsatile masses and nontender Back/Spine/Pelvis Back: No no CVA tenderness and back tenderness (Diffuse mild lumbar) Skin General skin exam: no rashes or lesions noted Neuro General: patient alert, patient awake, moves all extremities and no focal motor deficits Cognition: normal cognition Speech: speech normal Gait: normal gait Sensory Exam: no sensory deficits noted Psych Appearance: grossly normal Mental Status: mental status grossly normal Course Vital Signs Vital signs: Vital Signs Temperature 36.7 C 02/22/21 09:27 Pulse 74 02/22/21 09:27 Respiratory Rate 18 02/22/21 09:27 Blood Pressure 126/103 H 02/22/21 09:27 Pulse Oximetry 96 02/22/21 09:27 Temperature 36.7 C 02/22/21 09:27 Temperature Source Skin 02/22/21 09:27 Pulse 74 02/22/21 09:27 Respiratory Rate 18 02/22/21 09:27 Blood Pressure 126/103 H 02/22/21 09:27 Blood Pressure Position Sitting 02/22/21 09:27 Pulse Oximetry 96 02/22/21 09:27 Oxygen Delivery Method Room Air 02/22/21 09:27 Oxygen Flow Rate 0 02/22/21 09:27 Pain Level 8 02/22/21 09:27
[2021-02-22 09:51] LABS: Bilirubin Negative (Negative); Blood Negative (Negative); Clarity Clear (Clear); Glucose Negative (Negative); Ketones Negative (Negative); Leukocyte Esterase Negative (Negative); Nitrite Negative (Negative); Urobilinogen 0.2 EU/dL (Up TO 0.2)
[2021-02-22 10:20] LABS: Abs Immature Grans 0.02 10^3/uL (0.0-0.06); Absolute Basophil Count 0.05 10^3/uL (0.0-0.2); Absolute Eosinophil Count 0.28 10^3/uL (0.0-0.7); Absolute Lymphocyte Count 2.13 10^3/uL (1.2-3.4); Absolute Monocyte Count 1.19 10^3/uL (0.1-0.8); Absolute Neutrophil Count 6.85 10^3/uL (1.2-6.7); Basophils % 0.5; Eosinophils % 2.7; HCT 47.6 % (40.0-50.0); Immature Grans % 0.2; Lymphocytes % 20.2; MCH 31.1 pg (27.0-33.0); MCHC 33.6 % (32.0-36.0); MCV 92.6 fL (80-95); MPV 10.5 fL (8.0-11.0); Monocytes % 11.3; Neutrophils % 65.1; Nucleated RBC 0 %; Platelet Count 217 10^3/uL (130-400); RBC 5.14 10^6/uL (4.36-5.78); RDW 12.4 % (11.8-14.1); RDW-SD 42.5 fL; WBC 10.52 10^3/uL (4.4-10.8)
[2021-02-22 10:40] LABS: ALT 29 U/L (16-63); AST 28 U/L (15-37); Albumin 3.7 g/dL (3.4-5.0); Alkaline Phosphatase 78 U/L (46-116); Anion Gap 10.3 mmol/L (3-11); BUN 12 mg/dL (7-18); Bilirubin, Total 0.5 mg/dL (0.2-1.0); CO2 24.7 mmol/L (21.0-32.0); CREATININE 0.9 mg/dL (0.70-1.30); Calcium 8.6 mg/dL (8.5-10.1); Chloride 103 mmol/L (98-107); Glucose 97 mg/dL (74-106); Potassium 4.1 mmol/L (3.5-5.1); Sodium 138 mmol/L (136-145); Total Protein 7.6 g/dL (6.4-8.2)
--- NOTE | 2021-02-22 11:04 | NUR.NOTE ---
referral sent to urology
== END 2021-02-22 11:24 | disposition home or self-care (01) ==
PROVIDERS: Emergency Provider Physician Assistant; PCP Nurse Practitioner
DX: R39.11 Hesitancy of micturition (principal)
CPT/HCPCS: 36415; 80053; 99283; 81003; 85025

== ENCOUNTER 2021-11-01 11:27 | Outpatient (REF) | payer MEDICARE, MEDICAID, SELFPAY ==
[2021-11-01 16:04] LABS: Abs Immature Grans 0.01 10^3/uL (0.0-0.06); Absolute Basophil Count 0.07 10^3/uL (0.0-0.2); Absolute Eosinophil Count 0.21 10^3/uL (0.0-0.7); Absolute Lymphocyte Count 2.21 10^3/uL (1.2-3.4); Absolute Monocyte Count 0.68 10^3/uL (0.1-0.8); Basophils % 1.1; Eosinophils % 3.2; HCT 43.4 % (40.0-50.0); HGB 14.6 g/dL (13.5-17.5); Immature Grans % 0.2; Lymphocytes % 34.1; MCH 31.9 pg (27.0-33.0); MCHC 33.6 % (32.0-36.0); MCV 95 fL (80-95); MPV 11.3 fL (8.0-11.0); Monocytes % 10.5; Neutrophils % 50.9; Platelet Count 247 10^3/uL (130-400); RBC 4.57 10^6/uL (4.36-5.78); RDW-SD 45.2 fL; WBC 6.48 10^3/uL (4.4-10.8)
[2021-11-01 16:28] LABS: ALT 30 U/L (16-63); AST 26 U/L (15-37); Albumin 3.7 g/dL (3.4-5.0); Alkaline Phosphatase 63 U/L (46-116); Anion Gap 9.1 mmol/L (3-11); BUN 14 mg/dL (7-18); Bilirubin, Total 0.6 mg/dL (0.2-1.0); CO2 25.9 mmol/L (21.0-32.0); CREATININE 0.9 mg/dL (0.70-1.30); Calcium 8.7 mg/dL (8.5-10.1); Chloride 105 mmol/L (98-107); Glucose 124 mg/dL (74-106); Potassium 4.3 mmol/L (3.5-5.1); Sodium 140 mmol/L (136-145); Total Protein 6.9 g/dL (6.4-8.2)
[2021-11-01 16:33] LABS: C-Reactive Protein < 0.05 mg/dL (0.0-0.3)
== END 2021-11-01 11:28 | disposition home or self-care (01) ==
LOC: LBN 11:27
PROVIDERS: PCP Nurse Practitioner; Visit Provider Nurse Practitioner Family
DX: K59.09 Other constipation (principal); K92.1 Melena
CPT/HCPCS: 80053; 83516; 86671; 85025; 86140

== ENCOUNTER → 2021-11-18 13:02 | Outpatient (BNVA) | payer MEDICARE, MEDICAID, SELFPAY | PROVIDERS: PCP Nurse Practitioner; Referring Provider Nurse Practitioner; Visit Provider Physical Therapy Assistant | DX: R10.31 Right lower quadrant pain (principal); K59.00 Constipation, unspecified | CPT/HCPCS: 99215 ==

== ENCOUNTER → 2021-11-23 10:36 | Outpatient (BNVA) | payer MEDICARE, MEDICAID, SELFPAY | PROVIDERS: PCP Nurse Practitioner Family; Referring Provider Nurse Practitioner; Visit Provider Nurse Practitioner Gerontology | DX: N40.1 Benign prostatic hyperplasia with lower urinary tract symptoms (principal); R39.12 Poor urinary stream; R39.11 Hesitancy of micturition; R31.29 Other microscopic hematuria | CPT/HCPCS: 51798; 81003; 99215 ==

== ENCOUNTER 2021-11-23 15:26 | Outpatient (REF) | payer MEDICARE, MEDICAID, SELFPAY ==
[2021-11-23 15:01] LABS: Bilirubin Negative (Negative); Blood Negative (Negative); Clarity Clear (Clear); Glucose Negative (Negative); Ketones Negative (Negative); Leukocyte Esterase Negative (Negative); Nitrite Negative (Negative); Specific Gravity 1.025 (1.005-1.025); Urobilinogen 0.2 EU/dL (Up TO 0.2); pH 5.5 (5-8)
== END 2021-11-23 15:27 | disposition home or self-care (01) ==
LOC: LBN 15:26
PROVIDERS: PCP Nurse Practitioner Family; Visit Provider Nurse Practitioner Gerontology
DX: R31.29 Other microscopic hematuria (principal)
CPT/HCPCS: 81003

== ENCOUNTER → 2021-11-25 02:30 | Outpatient (CLI) | payer MEDICARE, MEDICAID, SELFPAY ==
--- NOTE | 2021-11-25 07:00 | DI.US_ITS ---
Exam(s) US ABDOMEN EXAM: US ABDOMEN CLINICAL HISTORY: RLQ ABD PAIN, R10.31, DISCOMFORT SINCE EARLY JULY TECHNIQUE: Ultrasound abdomen performed using standard protocol. COMPARISON: US ABDOMEN ULTRASOUND from 11/12/2009 CT HEAD WITHOUT CONTRAST from 07/06/2012 US AAA SCREENING from 08/28/2017 FINDINGS: ABDOMINAL AORTA AND IVC: Visualized portions normal caliber. PANCREAS: Normal where visualized. LIVER: Normal. Hepatopedal flow in the Portal Vein. There are several hepatic cysts. These were pres ent on prior examination. No follow-up is recommended. GALLBLADDER:No evidence of cholelithiasis. No evidence of wall thickening. No pericholecystic fluid i dentified. BILIARY SYSTEM: Common bile duct measures < 7 mm. No intrahepatic biliary ductal dilation. JUNIOR'S SIGN: Negative. KIDNEYS: Kidneys are symmetric in size. No evidence of renal calculi. No evidence of hydronephrosis. No renal mass or cyst identified. SPLEEN: Visualized portions are unremarkable. ASCITES: None seen. Other: There does appear to be a loop of bowel in the right lower quadrant which may correspond to th e palpable abnormality. The bowel is not well visualized on sonography. If there is concern for bowel abnormality, CT scan of the abdomen and pelvis should be obtained. IMPRESSION: Normal sonographic appearance of the upper abdomen. DATA REPOSITORY:
== END ==
PROVIDERS: PCP Nurse Practitioner Family; Visit Provider Nurse Practitioner Family
DX: R10.31 Right lower quadrant pain (principal)
CPT/HCPCS: 76700

== ENCOUNTER 2022-01-19 08:12 | Inpatient (IN) | payer MEDICARE, MEDICAID, SELFPAY ==
[2022-01-19] VITALS (106 sets, daily range): BP systolic 115–151; BP diastolic 52–110; PULSE 49–65; RESP 10–25; TEMP 36.5–36.6; O2SAT 91–98
--- NOTE | 2022-01-19 08:15 | RT.EKG_ITS ---
APPROVED REPORT Exam: Resting ECG Reason for Exam: chest pain Patient Location: E HR:56 bpm ECG Measurements Heart Rate 56 AXIS IN 176 P 64 QRSd 94 QRS -42 QT 433 T 131 QTc 417 Conclusion Sinus bradycardia...rate< 60 Left anterior fascicular block...axis(240,-40), init forces inf LVH with secondary repolarization abnormality...multi-LVH criteria, abnrm ST-T st dep inf/lat
[2022-01-19 08:43] LABS: Abs Immature Grans 0.01 10^3/uL (0.0-0.06); Absolute Basophil Count 0.07 10^3/uL (0.0-0.2); Absolute Eosinophil Count 0.23 10^3/uL (0.0-0.7); Absolute Lymphocyte Count 1.89 10^3/uL (1.2-3.4); Absolute Monocyte Count 0.57 10^3/uL (0.1-0.8); Basophils % 1.1; Eosinophils % 3.6; HCT 45.1 % (40.0-50.0); HGB 15.6 g/dL (13.5-17.5); Immature Grans % 0.2; Lymphocytes % 29.2; MCHC 34.6 % (32.0-36.0); MCV 93 fL (80-95); MPV 10.6 fL (8.0-11.0); Monocytes % 8.8; Neutrophils % 57.1; Platelet Count 214 10^3/uL (130-400); RBC 4.87 10^6/uL (4.36-5.78); RDW 12.6 % (11.8-14.1); RDW-SD 43.3 fL; WBC 6.47 10^3/uL (4.4-10.8)
[2022-01-19 08:57] LABS: INR 1.1 (0.9-1.1); PTT Activated 26.3 sec (21.0-27.5)
[2022-01-19 09:01] LABS: ALT 30 U/L (16-63); AST 33 U/L (15-37); Albumin 3.5 g/dL (3.4-5.0); Alkaline Phosphatase 56 U/L (46-116); Anion Gap 4.7 mmol/L (3-11); BUN 16 mg/dL (7-18); Bilirubin, Total 0.6 mg/dL (0.2-1.0); CO2 29.3 mmol/L (21.0-32.0); Calcium 8.8 mg/dL (8.5-10.1); Chloride 104 mmol/L (98-107); Glucose 110 mg/dL (74-106); Magnesium 2.1 mg/dL (1.8-2.4); Potassium 4.2 mmol/L (3.5-5.1); Sodium 138 mmol/L (136-145)
[2022-01-19 09:06] LABS: Troponin I 752 ng/L (<or=60)
[2022-01-19] MEDS: Clopidogrel 300 MG TAB PO (09:14)
--- NOTE | 2022-01-19 09:15 | DI.RAD_ITS ---
Exam(s) XR PORTABLE CHEST AP EXAM: XR PORTABLE CHEST AP CLINICAL HISTORY: chest pressure TECHNIQUE: 2D digital imaging was performed. COMPARISON: CR XR CHEST 2V PA LATERAL from 02/05/2019 FINDINGS: Leads overlie the chest LUNGS: Clear. No pleural abnormality seen. HEART: Normal. AORTA: Aortic valve prosthesis. Aorta is normal in diameter. BONES: Sternal wires. Degenerative changes in the spine. Soft tissues: Unremarkable. IMPRESSION: No acute findings. DATA REPOSITORY: RADIATION DOSE DELIVERED:
[2022-01-19 09:30] LABS: Source Nasal/Nares
--- NOTE | 2022-01-19 10:57 | ED.GENADUL_ITS ---
Discharge Plan Disposition Patient Disposition: [facility] INPATIENT Condition: Serious Discharge Details Chief Complaint: Chest Pain Clinical Impression: Acute non-ST elevation myocardial infarction (NSTEMI) Primary Care Provider: DAMON GABRIEL ED Provider: Manfred Nix Home Meds and New Rx's Prescriptions: No Action ibuprofen [Advil] 200 mg tablet 200 mg PO Q6H PRN metoprolol succinate 25 mg tablet extended release 24 hr 25 mg PO DAILY tamsulosin [Flomax] 0.4 mg capsule 0.4 mg PO DAILY Qty: 90 3RF aspirin [Aspir-81] 81 MG tablet,delayed release (DR/EC) 81 mg PO BID Medical Decision Making 1100 --81-year-old male with history of coronary artery disease status post CABG two-vessel, aortic valve replacement, here with exertional chest pressure over the past 1 month with associated dyspnea on exertion. Patient is currently asymptomatic and has no chest discomfort at rest. He saturating well in no respiratory distress. No signs of CHF on exam. Concern for ACS. EKG was reviewed and interpreted by me: Sinus bradycardia 56 bpm, ST depressions are noted inferior lateral and appear different than prior EKG which was reviewed, please see report. Initial troponin is significantly elevated. I initiated treatment with heparin IV bolus and infusion as well as Plavix 300 mg and will complete full dose of aspirin (patient took baby aspirin this morning as prescribed). I called [facility] [place] [facility] transfer center addressed transfer and spoke with SUZY Gutierrez discussed ED presentation and course, EKG was sent for review, all diagnostic results were discussed, she agrees to accept the patient on behalf of Dr. Manley. Plan will be for transfer tomorrow for catherization. She agrees with treatment of heparin, full dose aspirin and Plavix. She recommends n.p.o. after midnight. I called and spoke with Dr. Musa, discussed ED presentation course, he will accept the patient for admission. Lab Data Lab results reviewed: Yes I reviewed the patient's lab results. Labs: Laboratory Tests Range/Units 01/19/22 01/19/22 01/19/22 08:34 08:34 08:34 WBC (4.4-10.8) 10^3/uL 6.47 RBC (4.36-5.78) 10^6/uL 4.87 Hgb (13.5-17.5) g/dL 15.6 Hct (40.0-50.0) % 45.1 MCV (80-95) fL 93 MCH (27.0-33.0) pg 32.0 MCHC (32.0-36.0) % 34.6 RDW (11.8-14.1) % 12.6 Plt Count (130-400) 10^3/uL 214 MPV (8.0-11.0) fL 10.6 Immature Gran % 0.2 Neutrophils % 57.1 Lymphocytes % 29.2 Monocytes % 8.8 Eosinophils % 3.6 Basophils % 1.1 Nucleated RBC % (0.0-0.3) % 0.0 Absolute Neutrophils (1.2-6.7) 10^3/uL 3.70 Absolute Lymphocytes (1.2-3.4) 10^3/uL 1.89 Absolute Monocytes (0.1-0.8) 10^3/uL 0.57 Absolute Eosinophils (0.0-0.7) 10^3/uL 0.23 Absolute Basophils (0.0-0.2) 10^3/uL 0.07 PT (9.3-11.0) sec 11.0 INR (0.9-1.1) 1.1 APTT (21.0-27.5) sec 26.3 Sodium (136-145) mmol/L 138 Potassium (3.5-5.1) mmol/L 4.2 Chloride (98-107) mmol/L 104 Carbon Dioxide (21.0-32.0) mmol/L 29.3 Anion Gap (3-11) mmol/L 4.7 BUN (7-18) mg/dL 16 Creatinine (0.70-1.30) mg/dL 1.0 Estimated GFR/1.73 m2 (mL/min/1.73m2) >= 60.00 Glucose (74-106) mg/dL 110 H Calcium (8.5-10.1) mg/dL 8.8 Magnesium (1.8-2.4) mg/dL 2.1 Total Bilirubin (0.2-1.0) mg/dL 0.6 AST (15-37) U/L 33 ALT (16-63) U/L 30 Alkaline Phosphatase (46-116) U/L 56 Troponin I (<or=60) ng/L 752 H* Total Protein (6.4-8.2) g/dL 7.0 Albumin (3.4-5.0) g/dL 3.5 COVID-19 Source Range/Units 01/19/22 09:27 WBC (4.4-10.8) 10^3/uL RBC (4.36-5.78) 10^6/uL Hgb (13.5-17.5) g/dL Hct (40.0-50.0) % MCV (80-95) fL MCH (27.0-33.0) pg MCHC (32.0-36.0) % RDW (11.8-14.1) % Plt Count (130-400) 10^3/uL MPV (8.0-11.0) fL Immature Gran % Neutrophils % Lymphocytes % Monocytes % Eosinophils % Basophils % Nucleated RBC % (0.0-0.3) % Absolute Neutrophils (1.2-6.7) 10^3/uL Absolute Lymphocytes (1.2-3.4) 10^3/uL Absolute Monocytes (0.1-0.8) 10^3/uL Absolute Eosinophils (0.0-0.7) 10^3/uL Absolute Basophils (0.0-0.2) 10^3/uL PT (9.3-11.0) sec INR (0.9-1.1) APTT (21.0-27.5) sec Sodium (136-145) mmol/L Potassium (3.5-5.1) mmol/L Chloride (98-107) mmol/L Carbon Dioxide (21.0-32.0) mmol/L Anion Gap (3-11) mmol/L BUN (7-18) mg/dL Creatinine (0.70-1.30) mg/dL Estimated GFR/1.73 m2 (mL/min/1.73m2) Glucose (74-106) mg/dL Calcium (8.5-10.1) mg/dL Magnesium (1.8-2.4) mg/dL Total Bilirubin (0.2-1.0) mg/dL AST (15-37) U/L ALT (16-63) U/L Alkaline Phosphatase (46-116) U/L Troponin I (<or=60) ng/L Total Protein (6.4-8.2) g/dL Albumin (3.4-5.0) g/dL COVID-19 Source Nasal/Nares HPI General Mode of arrival: ambulatory . Date/Time Provider Initiated Documentation: 01/19/22 08:29 . Limitations to Documentation: no limitations . Information obtained by: patient . HPI Narrative: 81yo male with history of aortic valve replacement, remote CABG two vessel, here with chief complaint of chest pressure. Patient notes he has been exercising daily over the past month and experiences moderate chest pressure with mild exercise. He states that he feels winded. No associated nausea. Symptoms have been intermittent and only with exertional activities over the past 1 month. Symptoms improved with rest. He has no pain at this time. Patient denies associated cough. Related Data Home Medications Medication Instructions Recorded Confirmed aspirin 81 mg tablet,delayed 81 mg PO BID 09/18/13 01/19/22 release (Aspir-) metoprolol succinate 25 mg 25 mg PO DAILY 08/29/19 01/19/22 tablet,extended release 24 hr ibuprofen 200 mg tablet (Advil) 200 mg PO Q6H PRN 11/16/21 01/19/22 tamsulosin 0.4 mg capsule (Flomax) 0.4 mg PO DAILY #90 caps 11/23/21 01/19/22 Previous Rx's Medication Instructions Recorded tamsulosin 0.4 mg capsule (Flomax) 0.4 mg PO DAILY #90 caps 11/23/21 Allergies Allergy/AdvReac Type Severity Reaction Status Date / Time iodine Allergy Severe Verified 01/19/22 08:24 simvastatin AdvReac Intermediate upset Verified 01/19/22 08:24 stomach General Stated Complaint: Chest Pain BRITTON: 3 Review of Systems All systems reviewed & are unremarkable except as noted in HPI and below Constitutional Constitutional: Denies fever(s) Cardiovascular Cardiovascular: Reports as per HPI PFSH All Active Problems (Updated 01/19/22 @ 11:10 by Manfred Nix MD) Acute non-ST elevation myocardial infarction (NSTEMI) (Acute) ASCVD (arteriosclerotic cardiovascular disease) (Acute) Abnormal stress echo (Acute) Constipation (Acute ~05/2017) H/O aortic valve replacement (Acute) DVT prophylaxis (Acute) Palpitations (Acute) Coronary artery disease (Chronic) Chest pain (Acute) Aortic stenosis (Chronic) Medical History Abrasion, corneal Anxiety disorder Chest discomfort Dysphagia ED (erectile dysfunction) of organic origin GERD (gastroesophageal reflux disease) History of tobacco use Hyperlipidemia Low back pain Lower urinary tract symptoms Normal colonoscopy Sleep disturbance Urinary hesitancy Surgical History H/O aortic valve replacement S/P CABG (coronary artery bypass graft) S/P TURP TURP then ~10 yrs later green laser therapy. Both procedures done at facility in [place] Social History Smoking/Tobacco Use Status: Former Tobacco Use Quit Date: 07/03/84 Tobacco: How many years used: 15 Smokeless tobacco user: other Smoking risk assessment performed?: Yes Alcohol Intake: former Year quit: 1979 Drug use: Never Substance use type: does not use What type of physical activity do you participate in: walking and resistance training Frequency: 3-4 times per week Do you feel safe at home: Yes Do you feel safe in your relationship?: Yes Exam Const General: cooperative and no acute distress HENMT Head: normocephalic Mouth: moist mucous membranes Eyes Conjunctivae: normal conjunctivae Sclera: normal sclerae Neck Neck: trachea midline Resp Auscultation: clear to auscultation bilaterally, no rales, no rhonchi and no wheezes Cardio Rate: regular rate and not tachycardic Rhythm: regular rhythm Heart Sounds: murmur systolic II/ GI Palpation: soft, not firm, no guarding, no masses, not rigid and nontender Skin General skin exam: no rashes or lesions noted Neuro General: patient alert, patient awake and tone normal Extrem General: no calf tenderness and no edema Psych Appearance: grossly normal Mental Status: mental status grossly normal Speech and Movement: speech and movement normal Course Vital Signs Vital signs: Vital Signs Pulse Oximetry 98 01/19/22 08:20 Temperature 36.5 C 01/19/22 08:21 Temperature Source Temporal Artery Scan 01/19/22 08:21 Pulse 54 L 01/19/22 10:15 Pulse 54 L 01/19/22 10:20 Respiratory Rate 16 01/19/22 10:20 Respiratory Effort Non-Labored 01/19/22 08:26 Respiratory Depth Normal 01/19/22 08:26 Respiratory Pattern Normal 01/19/22 08:26 Blood Pressure 132/71 01/19/22 10:15 Blood Pressure Mean 87 01/19/22 10:15 Blood Pressure Position Supine 01/19/22 08:21 Pulse Oximetry 95 01/19/22 10:20 Oxygen Delivery Method Room Air 01/19/22 08:21 Oxygen Flow Rate 0 01/19/22 08:21 Pain Level 0 01/19/22 08:21 Lab/Test Results Lab/Test Results: Laboratory Tests Range/Units 01/19/22 01/19/22 01/19/22 08:34 08:34 08:34 WBC (4.4-10.8) 10^3/uL 6.47 RBC (4.36-5.78) 10^6/uL 4.87 Hgb (13.5-17.5) g/dL 15.6 Hct (40.0-50.0) % 45.1 MCV (80-95) fL 93 MCH (27.0-33.0) pg 32.0 MCHC (32.0-36.0) % 34.6 RDW (11.8-14.1) % 12.6 Plt Count (130-400) 10^3/uL 214 MPV (8.0-11.0) fL 10.6 Immature Gran % 0.2 Neutrophils % 57.1 Lymphocytes % 29.2 Monocytes % 8.8 Eosinophils % 3.6 Basophils % 1.1 Nucleated RBC % (0.0-0.3) % 0.0 Absolute Neutrophils (1.2-6.7) 10^3/uL 3.70 Absolute Lymphocytes (1.2-3.4) 10^3/uL 1.89 Absolute Monocytes (0.1-0.8) 10^3/uL 0.57 Absolute Eosinophils (0.0-0.7) 10^3/uL 0.23 Absolute Basophils (0.0-0.2) 10^3/uL 0.07 PT (9.3-11.0) sec 11.0 INR (0.9-1.1) 1.1 APTT (21.0-27.5) sec 26.3 Sodium (136-145) mmol/L 138 Potassium (3.5-5.1) mmol/L 4.2 Chloride (98-107) mmol/L 104 Carbon Dioxide (21.0-32.0) mmol/L 29.3 Anion Gap (3-11) mmol/L 4.7 BUN (7-18) mg/dL 16 Creatinine (0.70-1.30) mg/dL 1.0 Estimated GFR/1.73 m2 (mL/min/1.73m2) >= 60.00 Glucose (74-106) mg/dL 110 H Calcium (8.5-10.1) mg/dL 8.8 Magnesium (1.8-2.4) mg/dL 2.1 Total Bilirubin (0.2-1.0) mg/dL 0.6 AST (15-37) U/L 33 ALT (16-63) U/L 30 Alkaline Phosphatase (46-116) U/L 56 Troponin I (<or=60) ng/L 752 H* Total Protein (6.4-8.2) g/dL 7.0 Albumin (3.4-5.0) g/dL 3.5 COVID-19 Source Range/Units 01/19/22 09:27 WBC (4.4-10.8) 10^3/uL RBC (4.36-5.78) 10^6/uL Hgb (13.5-17.5) g/dL Hct (40.0-50.0) % MCV (80-95) fL MCH (27.0-33.0) pg MCHC (32.0-36.0) % RDW (11.8-14.1) % Plt Count (130-400) 10^3/uL MPV (8.0-11.0) fL Immature Gran % Neutrophils % Lymphocytes % Monocytes % Eosinophils % Basophils % Nucleated RBC % (0.0-0.3) % Absolute Neutrophils (1.2-6.7) 10^3/uL Absolute Lymphocytes (1.2-3.4) 10^3/uL Absolute Monocytes (0.1-0.8) 10^3/uL Absolute Eosinophils (0.0-0.7) 10^3/uL Absolute Basophils (0.0-0.2) 10^3/uL PT (9.3-11.0) sec INR (0.9-1.1) APTT (21.0-27.5) sec Sodium (136-145) mmol/L Potassium (3.5-5.1) mmol/L Chloride (98-107) mmol/L Carbon Dioxide (21.0-32.0) mmol/L Anion Gap (3-11) mmol/L BUN (7-18) mg/dL Creatinine (0.70-1.30) mg/dL Estimated GFR/1.73 m2 (mL/min/1.73m2) Glucose (74-106) mg/dL Calcium (8.5-10.1) mg/dL Magnesium (1.8-2.4) mg/dL Total Bilirubin (0.2-1.0) mg/dL AST (15-37) U/L ALT (16-63) U/L Alkaline Phosphatase (46-116) U/L Troponin I (<or=60) ng/L Total Protein (6.4-8.2) g/dL Albumin (3.4-5.0) g/dL COVID-19 Source Nasal/Nares Critical Care Time Critical Care Time Critical Care Time: Yes Total Critical Care Time: 50 Attestation: I spent greater than 50 minutes addressing this patient's immediate life threats. Please see MDM section of note. This time was spent engaged in work directly related to the patient's care, exclusive of separate procedures, and failure to initiate these interventions would have likely resulted in clinically significant or life threatening deterioration in the patient's condition.
--- NOTE | 2022-01-19 13:15 | RT.EKG_ITS ---
APPROVED REPORT Exam: Resting ECG Reason for Exam: chest pain Patient Location: E HR:58 bpm ECG Measurements Heart Rate 58 AXIS VT 173 P 69 QRSd 99 QRS -37 QT 435 T 128 QTc 427 Conclusion Sinus bradycardia...rate< 60 Ventricular premature complex...V complex w/ short R-R interval LVH with secondary repolarization abnormality...multi-LVH criteria, abnrm ST-T st dep inf/lat, artifact v4 - will repeat
--- NOTE | 2022-01-19 13:30 | RT.EKG_ITS ---
APPROVED REPORT Exam: Resting ECG Reason for Exam: chest pain Patient Location: E HR:57 bpm ECG Measurements Heart Rate 57 AXIS IN 178 P 68 QRSd 90 QRS -36 QT 443 T 129 QTc 432 Conclusion Sinus bradycardia...rate< 60 LVH with secondary repolarization abnormality...multi-LVH criteria, abnrm ST-T st dep inf/lat
[2022-01-19 13:50] LABS: Troponin I 1032 ng/L (<or=60)
[2022-01-19 14:28] LABS: COVID-19 PCR Negative (Negative)
[2022-01-19] MEDS: Aspirin 81 MG CHEW 243 MG PO (14:42)
[2022-01-19] MEDS: Aspirin 81 MG CHEW 162 MG PO (16:03)
--- NOTE | 2022-01-19 16:24 | NUR.NOTE ---
Nursing Note: pt is currently on heparin drip - dr ventura input order for 10ml/hour but the order has not come through. He is aware of the issue and that the drip is currently going at 10ml/hour as ordered
[2022-01-19 17:53] LABS: Troponin I 1333 ng/L (<or=60)
--- NOTE | 2022-01-19 18:07 | NUR.NOTE ---
Dimas reports heparin started by prior rn with 4900 unit bolus then 10mls per hour cont. while in ed. edits made to MAR per this report. Day rn is not available to edit their documentationNursing Note:
--- NOTE | 2022-01-19 18:25 | HPE_ITS ---
Date of service: 01/19/22 Time of Service: 18:26 Assessment and Plan Assessment and plan (1) Acute non-ST elevation myocardial infarction (NSTEMI): Status: Acute Assessment and plan: cont. heparin drip, DAPT w/ ASA and Plavix, cont. home dose of Toprol XL; add atorvastatin; transfer to [facility] tomorrow to service of Dr. Edward Manley when bed becomes available Critical care time spent interviewing and examining the patient, reviewing studies, discussing case with patient's nurse and consulting physicians was 60 minutes, beyond that time devoted to [id number] ultrasound (2) ASCVD (arteriosclerotic cardiovascular disease): Status: Acute Assessment and plan: s/p prior 2 vessel CABG w/ new onset of unstable angina symptoms and presenting w/ NSTEMI; treatment as above. need cardiac cath. (3) H/O aortic valve replacement: Status: Acute Assessment and plan: per my POCUS echo, he seems to have stenosis developing in his bioprosthetic AVR. He will need TTE while he is in [facility] to assess severity (may need SNOW if he needs redo CABG). History of Present Illness History of Present Illness Chief Complaint: dyspnea and chest tightness Narrative: 81 yr old male w/ PMH of ASHD and aortic stenosis, s/p 2 vessel CABG and bioprosthetic AVR in 2011 (done at [facility] by Dr. Jey Foley) who normally gets regular annual cardiac checkups with his it sales representative, Dr. Talbert, at [facility] however his last stress echo was in January 2019 prior to the COVID pandemic. Until this year he would regularly walk 2 to 3 miles daily but has not done so since fall. This summer he decided to try to get in shape by walking the track at [facility] but has had to curtail this d/t exertional dyspnea and chest pressure (not pain). Over the past week he has been getting symptoms w/ less activity than usual and can not walk 200 ft w/out getting dyspnea and chest tightness. Today he presented to the ED to have this evaluated. His workup revealed him to be having an NSTEMI w/ troponin I of 752 w/ 2nd troponin of 1032. Serial EKG's were performed and demonstrated sinus bradycardia w/ HR of 56 to 58 bpm w/ LVH w/ repolarization changes (deeply inverted T waves in I, aVL, V4-V6 similar to prior ECG from 2019. Dr. Nix, ED attending, [facility] and spoke w/ the cardiology nurse practioner who reviewed his EKG's and accepted the patient for transfer tomorrow to service of Dr. 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 Patient was started on DAPT (Plavix 300 mg and ASA 324 mg) and heparin drip. As he was not having any active symtoms at rest, no NTG was given. he is already on a beta gretel at home and was in sinus bradycardia so no additional beta gretel was given. He is now admitted to ICU to trend his troponins, monitor for arrythmias and monitor for worsening ischemic symptoms. If he has ischemia that can not be managed medically or developes a STEMI then [facility] should be re-contacted tonight for emergent transfer. Review of Systems All systems reviewed & are unremarkable except as noted in HPI and below PFSH All Active Problems Acute non-ST elevation myocardial infarction (NSTEMI) (Acute) ASCVD (arteriosclerotic cardiovascular disease) (Acute) Abnormal stress echo (Acute) Constipation (Acute ~05/2017) H/O aortic valve replacement (Acute) DVT prophylaxis (Acute) Palpitations (Acute) Coronary artery disease (Chronic) Chest pain (Acute) Aortic stenosis (Chronic) Medical History Abrasion, corneal Anxiety disorder Chest discomfort Dysphagia ED (erectile dysfunction) of organic origin GERD (gastroesophageal reflux disease) History of tobacco use Hyperlipidemia Low back pain Lower urinary tract symptoms Normal colonoscopy Sleep disturbance Urinary hesitancy Surgical History H/O aortic valve replacement S/P CABG (coronary artery bypass graft) S/P TURP TURP then ~10 yrs later green laser therapy. Both procedures done at facility in [place] Social History Smoking/Tobacco Use Status: Former Tobacco Use Quit Date: 07/03/84 Tobacco: How many years used: 15 Smokeless tobacco user: other Smoking risk assessment performed?: Yes Alcohol Intake: former Year quit: 1979 Drug use: Never Substance use type: does not use What type of physical activity do you participate in: walking and resistance training Frequency: 3-4 times per week Do you feel safe at home: Yes Do you feel safe in your relationship?: Yes Meds Allergies and Home Medications Allergies Allergy/AdvReac Type Severity Reaction Status Date / Time iodine Allergy Severe Verified 01/19/22 08:24 simvastatin AdvReac Intermediate upset Verified 01/19/22 08:24 stomach Home Medications Medication Instructions Recorded Confirmed Type aspirin 81 mg tablet,delayed 81 mg PO BID 09/18/13 01/19/22 History release (Aspir-) metoprolol succinate 25 mg 25 mg PO DAILY 08/29/19 01/19/22 History tablet,extended release 24 hr ibuprofen 200 mg tablet (Advil) 200 mg PO Q6H PRN 11/16/21 01/19/22 History tamsulosin 0.4 mg capsule (Flomax) 0.4 mg PO DAILY #90 caps 11/23/21 01/19/22 Rx Exam Narrative Exam Narrative: Alert and oriented x4 HEENT: Atraumatic normocephalic, pupils equally round reactive to light and accommodation, extraocular motion intact, TMs intact, nares moist and patent without exudate or bleeding, deviated septum to right, oropharynx noninjected without exudate, teeth in good repair Neck: Supple, nontender, without thyromegaly or lymphadenopathy or JVD. Normal carotid pulses with bilateral bruits vs referred aortic murmur Lungs: Clear to auscultation and percussion Heart: Regular rhythm, bradycardic w/ harsh grade 4 systolic murmur over aortic outflow tract that obscures S2, however he has higher pitch murmur that is less loud over apex; postive thrill but without a heave; apical impulse is not displaced. chest wall is deformed over left lower costal margin d/t old rib fracture(s) Abdomen: Nondistended, normal bowel sounds, nontender to palpation or percussion, no organomegaly, audible bruits over LUQ and RUQ, no palpable masses Genitalia and rectal exam: Deferred Prostate: deferred Extremities: Normal range of motion with normal strength. No peripheral cyanosis or edema. Normal pulses Neurologic: Cranial nerves II through XII grossly within normal limits. Normal strength and sensation over the face trunk and extremities. Results Imaging Chest x-ray: report reviewed and image reviewed EKG: image reviewed Labs Result diagrams: 01/19/22 08:34 01/19/22 08:34 Labs: Laboratory Results - last 24 hr 01/19/22 01/19/22 01/19/22 08:34 08:34 08:34 WBC 6.47 RBC 4.87 Hgb 15.6 Hct 45.1 MCV 93 MCH 32.0 MCHC 34.6 RDW 12.6 Plt Count 214 MPV 10.6 Immature Gran % 0.2 Neutrophils % 57.1 Lymphocytes % 29.2 Monocytes % 8.8 Eosinophils % 3.6 Basophils % 1.1 Nucleated RBC % 0.0 Absolute Neutrophils 3.70 Absolute Lymphocytes 1.89 Absolute Monocytes 0.57 Absolute Eosinophils 0.23 Absolute Basophils 0.07 PT 11.0 INR 1.1 APTT 26.3 Sodium 138 Potassium 4.2 Chloride 104 Carbon Dioxide 29.3 Anion Gap 4.7 BUN 16 Creatinine 1.0 Estimated GFR/1.73 m2 >= 60.00 Glucose 110 H Calcium 8.8 Magnesium 2.1 Total Bilirubin 0.6 AST 33 ALT 30 Alkaline Phosphatase 56 Troponin I 752 H* Total Protein 7.0 Albumin 3.5 COVID-19 Source SARS-CoV-2 (PCR) 01/19/22 01/19/22 01/19/22 09:27 13:22 17:08 WBC RBC Hgb Hct MCV MCH MCHC RDW Plt Count MPV Immature Gran % Neutrophils % Lymphocytes % Monocytes % Eosinophils % Basophils % Nucleated RBC % Absolute Neutrophils Absolute Lymphocytes Absolute Monocytes Absolute Eosinophils Absolute Basophils PT INR APTT Sodium Potassium Chloride Carbon Dioxide Anion Gap BUN Creatinine Estimated GFR/1.73 m2 Glucose Calcium Magnesium Total Bilirubin AST ALT Alkaline Phosphatase Troponin I 1032 H* 1333 H* Total Protein Albumin COVID-19 Source Nasal/Nares SARS-CoV-2 (PCR) Negative Last Vital Signs Temp 36.5 C 01/19/22 08:21 Pulse 59 L 01/19/22 18:09 Resp 14 01/19/22 18:09 BP 139/78 01/19/22 18:09 Pulse Ox 93 01/19/22 18:09
[2022-01-19] MEDS: Atorvastatin 40 MG TAB 80 MG PO (20:31)
[2022-01-19 20:48] LABS: PTT Activated 60.4 sec (21.0-27.5)
[2022-01-19] MEDS: LORazepam 0.5 MG TAB PO (21:07)
[2022-01-19 22:52] LABS: Troponin I 1071 ng/L (<or=60)
[2022-01-20] VITALS (64 sets, daily range): BP systolic 118–149; BP diastolic 56–82; PULSE 50–108; RESP 11–27; TEMP 36–36.6; O2SAT 92–97
[2022-01-20 07:01] LABS: Calculated LDL 122 mg/dL (<100); Cholesterol 187 mg/dL (<200); HDL Cholesterol 54 mg/dL (40-60); Triglyceride 58 mg/dL (<150)
[2022-01-20 07:04] LABS: Troponin I 1008 ng/L (<or=60)
[2022-01-20 07:57] LABS: PTT Activated 64.6 sec (21.0-27.5)
[2022-01-20] MEDS: Metoprolol CR 25 MG TABCR PO (08:32)
[2022-01-20] MEDS: Clopidogrel 75 MG TAB PO (08:33)
[2022-01-20] MEDS: Tamsulosin 0.4 MG CAPCR PO (08:33)
[2022-01-20] MEDS: Aspirin E.C. 81 MG TABEC PO (08:59)
--- NOTE | 2022-01-20 12:22 | PDOC.CMIN ---
- If Service Date Differs Date of service: 01/20/22 Time of Service: 12:22 Care Management Initial Assess REASON FOR HOSPITALIZATION:: NSTEMI PAST MEDICAL HISTORY/PAST SURGICAL HISTORY:: Medical History . Abrasion, corneal. Anxiety disorder. Chest discomfort. Dysphagia. ED (erectile dysfunction) of organic origin. GERD (gastroesophageal reflux disease). History of tobacco use. Hyperlipidemia. Low back pain. Lower urinary tract symptoms. Normal colonoscopy. Sleep disturbance. Urinary hesitancy. Surgical History . H/O aortic valve replacement. S/P CABG (coronary artery bypass graft). S/P TURP. TURP then ~10 yrs later green laser therapy. Both procedures done at facility in [place] PREVIOUS FUNCTIONAL STATUS/SOCIAL/FAMILY SUPPORTS:: Jey lives with his lady friend Emeterio in a single family home in [place], [place] 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 Jey has children but none of them live close by. He identifies Emeterio and her children as his supports in the community. Jey is very active and independent with all care and activities. CURRENT FUNCTIONAL STATUS:: Jey was sitting up in bed in the ICU when CM met with him. He had just been told that he has a bed at [facility] and will be transferring soon. ADVANCE DIRECTIVES:: On file. emeterio ADAMSON Has patient been provided with info about the portal/API?: Yes Did the patient sign up for the portal?: No CODE STATUS:: Full Code INSURANCE COVERAGE / FINANCIAL ISSUES:: Medicare. Medicaid CURRENT HOME/COMMUNITY SERVICES/EQUIPMENT:: none PRIMARY CARE PHYSICIAN:: Janie Hubbard POTENTIAL DISCHARGE NEEDS:: likely will be transferred to [facility] PATIENT/FAMILY EDUCATION NEEDS:: Review of expectations, follow up plan, limitations ANTICIPATED BARRIERS TO DISCHARGE:: bed availability TRANSPORTATION:: EMS if transferred to [facility] PLAN:: Jey is waiting for transfer to [facility]
--- NOTE | 2022-01-20 13:56 | DSE_ITS ---
Date of service: 01/20/22 Time of Service: 13:56 DS: Diagnosis Discharge Diagnosis (1) Acute non-ST elevation myocardial infarction (NSTEMI): Status: Acute Asessment and Plan: See hospital as below (2) ASCVD (arteriosclerotic cardiovascular disease): Status: Acute (3) H/O aortic valve replacement: Status: Acute Discharge Plan Disposition Patient Disposition: [facility] Condition: Stable Discharge Details Reason For Visit: NSTEMI Admit Date/Time: 01/19/22 16:51 Admit Provider: Robert Musa Attending Provider: Robert Musa Primary Care Provider: DAMON GABRIEL Hospital Course Hospital Course: 81-year-old male with a past medical history of ASHD, aortic stenosis, status post two-vessel CABG and bioprosthetic AVR in 2011 performed at [place] by Dr. Jey Foley presented on 01/19/2022 to [facility] emergency department with complaints of exertional dyspnea and chest tightness that was relieved with rest. Patient was found to have an NSTEMI with a troponin I level of 752 with his second troponin rising to 1032 and peaking at 1333. Patient did not have any symptoms of chest pain or pressure or dyspnea in the emergency department but had been complaining of progressively worsening exertional dyspnea and chest tightness over the last couple weeks. Patient had no pedal edema no PND and no orthopnea. In addition to the serial troponin levels he underwent a chest x-ray that showed no acute cardiopulmonary pathology. He had serial ECGs performed which demonstrated sinus bradycardia with heart rates in the 50s with diffuse T wave abnormalities consistent with LVH with repolarization changes. These were similar to his previous ECG findings from January 2019. [facility] was contacted through our ED department and the patient was excep nena for transfer for further cardiac care but because of her no beds available in the patient's [place] was considered and NSTEMI he was decided to medically treat him here at [facility] overnight. Patient remained symptom-free overnight was treated with dual antiplatelet therapy with aspirin and Plavix was put on a heparin drip but never required any nitroglycerin. He was put on high-dose atorvastatin which was new to him. Patient remained hemodynamically stable was transferred on the afternoon of 01/20/2022 via ambulance to [facility] to the service of Dr. Edward Manley. Home Meds and New Rx's Prescriptions: Continued ibuprofen [Advil] 200 mg tablet 200 mg PO Q6H PRN metoprolol succinate 25 mg tablet extended release 24 hr 25 mg PO DAILY tamsulosin [Flomax] 0.4 mg capsule 0.4 mg PO DAILY Qty: 90 3RF aspirin [Aspir-81] 81 MG tablet,delayed release (DR/EC) 81 mg PO BID Discharge Instructions Instructions: Heart Attack (DC), Heart Healthy Diet (DC) Referrals: Edward Manley [ [facility]FF [facility]ICIAN] - Activity:: Activity as Tolerated Diet:: Low Sodium Discharge Orders Discharge Orders: Discharge Order (Routine); Ordered 01/20/22 Ordered By: Robert Musa DS: Summary Time Spent with Patient providing and/or coordinating discharge services: Less than 30 minutes Specific discharge activities: Interview/exam of patient; review of discharge instructions, completion of prescriptions/discharge instructions; discussion w/ nursing and CM; documentation of hospital visit Status at Discharge Functional status at discharge: independent ambulation Overall status at discharge: patient is progressing back to baseline Mental Status: mental status grossly normal Speech and Movement: speech and movement normal Mood: congruent mood Affect: normal affect Exam Narrative Exam Narrative: Mr. Pitts is sitting up in bed he is alert oriented person place time circumstance in no discomfort. He denies any chest pain or dyspnea. Lungs are clear to auscultation Heart is regular with a harsh grade 4 systolic murmur over the apex but radi ating throughout the precordium. He has a palpable thrill but no heave and no audible gallop. Abdomen is soft and nontender nondistended Extremities without peripheral cyanosis or edema. Psych Mental Status: mental status grossly normal Speech and Movement: speech and movement normal Mood: congruent mood Affect: normal affect DS: Data Vitals/I&O Vitals and I&O: Vital Signs Temperature 36.5 C 01/20/22 08:00 Temperature Source Temporal Artery Scan 01/20/22 08:00 Pulse 66 01/20/22 13:01 Pulse 71 01/20/22 13:01 Respiratory Rate 23 01/20/22 13:01 Respiratory Effort 01/20/22 08:00 Respiratory Depth Normal 01/20/22 08:00 Respiratory Pattern Normal 01/20/22 08:00 Blood Pressure 121/64 01/20/22 13:01 Blood Pressure Mean 78 01/20/22 13:01 Blood Pressure Position Sitting 01/20/22 08:00 Pulse Oximetry 94 01/20/22 13:01 Oxygen Delivery Method Room Air 01/20/22 08:00 Oxygen Flow Rate 0 01/20/22 08:00 Pain Level 0 01/20/22 08:00 Intake & Output 01/19/22 01/20/22 01/20/22 23:59 11:59 23:59 Intake Total 117.667 / 117.667 111.667 / 111.667 Output Total 1400 / 1400 Balance 117.667 / 117.667 -1288.333 / -1288.333 Weight 72.4 kg Intake: IV 117.667 / 117.667 111.667 / 111.667 Output: Urine 1400 / 1400 Other: Urine Color Yellow Urine Appearance Clear Stool Occult Blood Negative Stool Size Moderate Stool Characteristics Soft Formed Data Completed and Pending Labs on day of discharge: Labs from last 24 hours 01/20/22 01/20/22 01/19/22 07:37 05:40 22:17 APTT 64.6 H Troponin I 1008 H* 1071 H* Triglycerides 58 Total Cholesterol 187 LDL Cholesterol, Calc 122 H HDL Cholesterol 54 SARS-CoV-2 (PCR) 01/19/22 01/19/22 01/19/22 20:30 17:08 09:27 APTT 60.4 H Troponin I 1333 H* Triglycerides Total Cholesterol LDL Cholesterol, Calc HDL Cholesterol SARS-CoV-2 (PCR) Negative PFSH All Active Problems Acute non-ST elevation myocardial infarction (NSTEMI) (Acute) ASCVD (arteriosclerotic cardiovascular disease) (Acute) Abnormal stress echo (Acute) Constipation (Acute ~05/2017) H/O aortic valve replacement (Acute) DVT prophylaxis (Acute) Palpitations (Acute) Coronary artery disease (Chronic) Chest pain (Acute) Aortic stenosis (Chronic) Medical History Abrasion, corneal Anxiety disorder Chest discomfort Dysphagia ED (erectile dysfunction) of organic origin GERD (gastroesophageal reflux disease) History of tobacco use Hyperlipidemia Low back pain Lower urinary tract symptoms Normal colonoscopy Sleep disturbance Urinary hesitancy Surgical History H/O aortic valve replacement S/P CABG (coronary artery bypass graft) S/P TURP TURP then ~10 yrs later green laser therapy. Both procedures done at facility in [place] Social History Smoking/Tobacco Use Status: Former Tobacco Use Quit Date: 07/03/84 Tobacco: How many years used: 15 Smokeless tobacco user: other Smoking risk assessment performed?: Yes Alcohol Intake: former Year quit: 1979 Drug use: Never Substance use type: does not use What type of physical activity do you participate in: walking and resistance training Frequency: 3-4 times per week Do you feel safe at home: Yes Do you feel safe in your relationship?: Yes
== END 2022-01-20 16:15 | disposition short-term general hospital (02) | DRG 281 ==
LOC: ER 11:10 → ICU 18:21
PROVIDERS: Admitting Provider Internal Medicine; Emergency Provider Student in an Organized Health Care Education/Training Program; PCP Nurse Practitioner Family; Visit Provider Internal Medicine
DX: I21.4 Non-ST elevation (NSTEMI) myocardial infarction (principal); T82.857A Stenosis of other cardiac prosthetic devices, implants and grafts, initial encounter; I25.10 Atherosclerotic heart disease of native coronary artery without angina pectoris; Z95.2 Presence of prosthetic heart valve; Z95.1 Presence of aortocoronary bypass graft; K21.9 Gastro-esophageal reflux disease without esophagitis; F41.9 Anxiety disorder, unspecified; Z87.891 Personal history of nicotine dependence; E78.5 Hyperlipidemia, unspecified; Y71.2 Prosthetic and other implants, materials and accessory cardiovascular devices associated with adverse incidents; R94.39 Abnormal result of other cardiovascular function study
CPT/HCPCS: 36415; 80053; 80061; 87635; 93005; 96365; 96366; 96376; 99291; 71045; 83735; 84484; 85025; 85610; 85730; 93010; 99238

== ENCOUNTER → 2022-05-31 10:07 | Outpatient (BNVA) | payer MEDICARE, MEDICAID, SELFPAY | PROVIDERS: PCP Nurse Practitioner Family; Referring Provider Nurse Practitioner Family; Visit Provider Nurse Practitioner Gerontology | DX: N40.1 Benign prostatic hyperplasia with lower urinary tract symptoms (principal); R31.9 Hematuria, unspecified | CPT/HCPCS: 99214 ==

== ENCOUNTER 2022-06-21 08:42 | Emergency (ER) | payer MEDICARE, MEDICAID, SELFPAY ==
[2022-06-21 08:54] VITALS: BP 136/58; PULSE 62; RESP 16; TEMP 36.7; O2SAT 98
--- NOTE | 2022-06-21 09:13 | ED.GENADUL_ITS ---
Discharge Plan Disposition Patient Disposition: Home Condition: Stable Discharge Details Clinical Impression: Subdural hygroma, Fall Primary Care Provider: DAMON GABRIEL ED Provider: Manfred Nix Home Meds and New Rx's Prescriptions: Continued ibuprofen [Advil] 200 mg tablet 200 mg PO Q6H PRN clopidogrel [Plavix] 75 mg tablet 75 mg PO DAILY atorvastatin 20 mg tablet 20 mg PO DAILY metoprolol succinate 25 mg tablet extended release 24 hr 25 mg PO DAILY aspirin [Aspir-81] 81 MG tablet,delayed release (DR/EC) 81 mg PO BID tamsulosin [Flomax] 0.4 mg capsule 0.4 mg PO DAILY Qty: 90 3RF Discharge Instructions Instructions: Fall Prevention for Older Adults (ED) Additional Instructions: Please contact your primary care physician to arrange follow-up. Return to the ER immediately for any worsening or new concerning symptoms. Referrals: DAMON GABRIEL, [employer]OLOGICAL SCIENCE [employer]ACHER [Primary Care Provider] - Medical Decision Making 916??81-year-old male who presents 1 day after slip and fall on ice with head trauma. Patient is hemodynamically stable, mentating well with no focal neurologic deficits. He does have a headache. Patient is on aspirin and Plavix. Concern for acute life-threatening intracranial traumatic hemorrhage. Plan to obtain CT of the head. Consider C-spine fracture. Plan to obtain CT of the cervical spine. 1055 --CT of the head was interpreted by radiology as: No acute intracranial hemorrhage but when compared to the prior study of 2018 there are now bilateral symmetrical subdural hygromas, both approximately 8 millimeters thick and not evident on the prior 2018 study. No evidence of cervical spine fracture, malalignment, nor acute compromise of the cervical spinal canal. I spoke with Dr. Man and he notes no acute injury. No hemorrhage. Images sent to [facility] to request review and consultation with neurosurgery. Patient reassessed and remained stable. 1450 --I spoke with the neurosurgery resident on-call and discussed ED presentation course. 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 They recommend no additional diagnostic testing or treatment at this time but that he can be discharged with instructions return should he have any worsening or new concerning symptoms. HPI General Mode of arrival: ambulatory . Date/Time Provider Initiated Documentation: 06/21/22 09:03 . Limitations to Documentation: no limitations . Information obtained by: patient . HPI Narrative: 81-year-old male with history of coronary artery disease on aspirin and Plavix, here after mechanical slip and fall on ice yesterday at 10 AM. Pain is moderate and localized to general head. Describes it as a headache. No areas of focal pain. No associated numbness or tingling. No associated visual change. He did not lose consciousness during fall. He does note some mild neck pain. No other injury. No chest pain or abdominal pain. Related Data Home Medications Medication Instructions Recorded Confirmed aspirin 81 mg tablet,delayed 81 mg PO BID 09/18/13 06/21/22 release (Aspir-) metoprolol succinate 25 mg 25 mg PO DAILY 08/29/19 06/21/22 tablet,extended release 24 hr ibuprofen 200 mg tablet (Advil) 200 mg PO Q6H PRN 11/16/21 01/19/22 tamsulosin 0.4 mg capsule (Flomax) 0.4 mg PO DAILY #90 caps 03/25/22 06/21/22 atorvastatin 20 mg tablet 20 mg PO DAILY 05/31/22 06/21/22 clopidogrel 75 mg tablet (Plavix) 75 mg PO DAILY 05/31/22 06/21/22 Previous Rx's Medication Instructions Recorded tamsulosin 0.4 mg capsule (Flomax) 0.4 mg PO DAILY #90 caps 03/25/22 Allergies Allergy/AdvReac Type Severity Reaction Status Date / Time iodine Allergy Severe Verified 06/21/22 08:58 simvastatin AdvReac Intermediate upset Verified 06/21/22 08:58 stomach General Stated Complaint: Trauma BRITTON: 2 Review of Systems All systems reviewed & are unremarkable except as noted in HPI and below Constitutional Constitutional: Denies fever(s) Neurologic Neurologic: Reports as per HPI PFSH All Active Problems (Updated 06/21/22 @ 14:40 by Manfred Nix MD) Subdural hygroma (Acute) Fall (Acute) Acute non-ST elevation myocardial infarction (NSTEMI) (Acute) ASCVD (arteriosclerotic cardiovascular disease) (Acute) Abnormal stress echo (Acute) Constipation (Acute ~05/2017) H/O aortic valve replacement (Acute) DVT prophylaxis (Acute) Palpitations (Acute) Coronary artery disease (Chronic) Chest pain (Acute) Aortic stenosis (Chronic) Medical History Abrasion, corneal Anxiety disorder Chest discomfort Dysphagia ED (erectile dysfunction) of organic origin GERD (gastroesophageal reflux disease) History of tobacco use Hyperlipidemia Low back pain Lower urinary tract symptoms Normal colonoscopy Sleep disturbance Urinary hesitancy Surgical History H/O aortic valve replacement S/P CABG (coronary artery bypass graft) S/P TURP TURP then ~10 yrs later green laser therapy. Both procedures done at facility in [place] Social History Smoking/Tobacco Use Status: Former Tobacco Use Quit Date: 07/03/84 Tobacco: How many years used: 15 Smokeless tobacco user: other Smoking risk assessment performed?: Yes Alcohol Intake: former Year quit: 1979 Drug use: Never Substance use type: does not use What type of physical activity do you participate in: walking and resistance training Frequency: 3-4 times per week Do you feel safe at home: Yes Do you feel safe in your relationship?: Yes Exam Const General: cooperative and no acute distress HENMT Head: normocephalic and atraumatic Ears: TM's normal bilaterally Mouth: moist mucous membranes Eyes Conjunctivae: normal conjunctivae Sclera: normal sclerae Pupils: PERRL EOM: EOM intact bilaterally Neck Neck: trachea midline, supple, no midline deformity and tender (Midline posterior C-spine) Resp Auscultation: clear to auscultation bilaterally, no rales, no rhonchi and no wheezes Cardio Jugular venous pressure: no JVD Rate: regular rate and not tachycardic Rhythm: regular rhythm GI Palpation: soft, not firm, no guarding, no masses, not rigid and nontender Back/Spine/Pelvis Cervical Spine: collar present, cervical spinal tenderness and No step off deformity Thoracic/Lumbar Spine: No thoracic spinal tenderness and No lumbar spinal tenderness Skin General skin exam: no rashes or lesions noted Neuro General: patient alert, patient awake, patient oriented x3 and tone normal Cognition: normal cognition Speech: speech normal Gait: normal gait Motor: strength 5/5 throughout Sensory Exam: no sensory deficits noted Extrem General: no edema Psych Appearance: grossly normal Mental Status: mental status grossly normal Speech and Movement: speech and movement normal Course Vital Signs Vital signs: Vital Signs Temperature 36.7 C 06/21/22 08:54 Pulse 62 06/21/22 08:54 Respiratory Rate 16 06/21/22 08:54 Blood Pressure 136/58 L 06/21/22 08:54 Pulse Oximetry 98 06/21/22 08:54 Temperature 36.7 C 06/21/22 08:54 Temperature Source Skin 06/21/22 08:54 Pulse 62 06/21/22 08:54 Respiratory Rate 16 06/21/22 08:54 Respiratory Effort 06/21/22 08:57 Blood Pressure 136/58 L 06/21/22 08:54 Blood Pressure Position Sitting 06/21/22 08:54 Pulse Oximetry 98 06/21/22 08:54 Oxygen Delivery Method Room Air 06/21/22 08:54 Oxygen Flow Rate 0 06/21/22 08:54 Pain Level 5 06/21/22 09:10
--- NOTE | 2022-06-21 09:50 | DI.CT_ITS ---
Exam(s) CT HEAD CERVICAL SPINE WO EXAM: CT HEAD CERVICAL SPINE WO CLINICAL HISTORY: neck pain, headache, fall yesterday. TECHNIQUE: Imaging Protocol: Axial computed tomography images with coronal and sagittal reformatted images were created and reviewed COMPARISON: CT HEAD AND CSPINE W/O CONTRAST from 09/24/2017 FINDINGS: BRAIN: There are no skull fractures nor fluid in the visualized paranasal sinuses. Deformity of the nose is unchanged from 2018 and probably related to prior nonacute fracture. There is no evidence of acute intracranial hemorrhage, mass effect, or shift of midline structures. The ventricles are not enlarged or shifted and there is no blood within the ventricular system nor wi thin the basal cisterns. There is symmetrical bilateral convexity subdural hygromas, both measuring approximately 8 millimeter s thick and both increased in size from 09/24/2017. These symmetrical hygromas extend over both conv exities. CERVICAL SPINE: There is no evidence of acute fracture nor listhesis. No significant prevertebral soft tissue swelli ng. Cervical curvature is maintained. Multilevel facet arthropathy. There is no significant facet joint malalignment. No significant osseous lesions evident. IMPRESSION: No acute intracranial hemorrhage but when compared to the prior study of 2018 there are now bilateral symmetrical subdural hygromas, both approximately 8 millimeters thick and not evident on the prior 2 018 study. No evidence of cervical spine fracture, malalignment, nor acute compromise of the cervical spinal can al. Discussed by phone with ER physician RADIATION DOSE DELIVERED: 1,278.04mGy.cm Total DLP DATA REPOSITORY: All CT scans at this facility are submitted to the National Radiology Data Registry (NRDR) Dose Index Registry (DIR) with the [employer] ([employer]). RADIATION OPTIMIZATION: All CT scans at this facility use at least one of these dose optimization te chniques: automated exposure control; mA and/or kV adjustment per patient size (includes targeted exa ms where dose is matched to clinical indication); or iterative reconstruction.
[2022-06-21 12:06] VITALS: BP 124/71; PULSE 64; RESP 19; TEMP 36.4; O2SAT 97
== END 2022-06-21 14:54 | disposition home or self-care (01) ==
PROVIDERS: Emergency Provider Student in an Organized Health Care Education/Training Program; PCP Nurse Practitioner Family
DX: G96.08 Other cranial cerebrospinal fluid leak (principal); S09.90XA Unspecified injury of head, initial encounter; I25.10 Atherosclerotic heart disease of native coronary artery without angina pectoris; Z79.82 Long term (current) use of aspirin; Z79.01 Long term (current) use of anticoagulants; W00.0XXA Fall on same level due to ice and snow, initial encounter
CPT/HCPCS: 80053; 99284; 70450; 72125; 85025; 85610; 85730; 99282

== ENCOUNTER 2022-09-24 07:25 | Emergency (ER) | payer MEDICARE, MEDICAID, SELFPAY ==
[2022-09-24] VITALS (60 sets, daily range): BP systolic 126–179; BP diastolic 62–102; PULSE 52–72; RESP 11–25; O2SAT 94–99
--- NOTE | 2022-09-24 07:15 | RT.EKG_ITS ---
APPROVED REPORT Exam: Resting ECG Reason for Exam: dizzy Patient Location: E HR:57 bpm ECG Measurements Heart Rate 57 AXIS NV 154 P 69 QRSd 104 QRS -43 QT 458 T 128 QTc 447 Conclusion Sinus bradycardia...rate< 60 Left anterior fascicular block...axis(240,-40), init forces inf LVH with secondary repolarization abnormality...multi-LVH criteria, abnrm ST-T
--- NOTE | 2022-09-24 08:15 | RT.EKG_ITS ---
APPROVED REPORT Exam: Resting ECG Reason for Exam: palpations Patient Location: E HR:68 bpm ECG Measurements Heart Rate 68 AXIS IA 171 P 70 QRSd 101 QRS -45 QT 461 T 126 QTc 489 Conclusion Sinus rhythm. Ventricular bigeminy Left anterior fascicular block. LVH with secondary repolarization abnormality
--- NOTE | 2022-09-24 08:15 | DI.RAD_ITS ---
Exam(s) XR CHEST 2V PA LATERAL EXAM: XR CHEST 2V PA LATERAL CLINICAL HISTORY: Lightheadedness TECHNIQUE: 2D digital imaging was performed. COMPARISON: CR XR PORTABLE CHEST AP from 01/19/2022 FINDINGS: HEART: Mildly enlarged. Aortic valve prosthesis. Coronary artery calcifications. Aorta: Not dilated. PULMONARY VASCULATURE: Normal. LUNGS: Clear. PLEURAL SPACE: No pleural effusion or pneumothorax. BONE:Sternal wires. IMPRESSION: No acute abnormality. DATA REPOSITORY: RADIATION DOSE DELIVERED:
[2022-09-24 08:25] LABS: Abs Immature Grans 0.01 10^3/uL (0.0-0.06); Absolute Basophil Count 0.07 10^3/uL (0.0-0.2); Absolute Eosinophil Count 0.19 10^3/uL (0.0-0.7); Absolute Lymphocyte Count 2.06 10^3/uL (1.2-3.4); Absolute Monocyte Count 0.67 10^3/uL (0.1-0.8); Absolute Neutrophil Count 3.38 10^3/uL (1.2-6.7); Basophils % 1.1; HCT 44.9 % (40.0-50.0); Immature Grans % 0.2; Lymphocytes % 32.3; MCH 31.6 pg (27.0-33.0); MCHC 33.4 % (32.0-36.0); MCV 95 fL (80-95); MPV 10.5 fL (8.0-11.0); Monocytes % 10.5; Neutrophils % 52.9; Platelet Count 203 10^3/uL (130-400); RBC 4.74 10^6/uL (4.36-5.78); RDW 12.6 % (11.8-14.1); RDW-SD 43.9 fL; WBC 6.38 10^3/uL (4.4-10.8)
--- NOTE | 2022-09-24 08:26 | W.ED.GENAD ---
Discharge Plan Disposition Patient Disposition: Home Condition: Improving Discharge Details Clinical Impression: Anxiety about health, Aortic stenosis, Lightheadedness, H/O aortic valve replacement Primary Care Provider: DAMON GABRIEL ED Provider: Ignacio Maldonado Home Meds and New Rx's Prescriptions: Continued ibuprofen [Advil] 200 mg tablet 200 mg PO Q6H PRN clopidogrel [Plavix] 75 mg tablet 75 mg PO DAILY atorvastatin 20 mg tablet 80 mg PO DAILY metoprolol succinate 25 mg tablet extended release 24 hr 25 mg PO DAILY aspirin [Aspir-81] 81 MG tablet,delayed release (DR/EC) 81 mg PO BID tamsulosin [Flomax] 0.4 mg capsule 0.4 mg PO DAILY Qty: 90 3RF Discharge Instructions Instructions: Lightheadedness (ED), Anxiety (ED) Additional Instructions: At this time your work-up was very reassuring for no emergent changes in your medical condition. If you do develop any new or significant worsening of symptoms such as passing out, chest pain, severe shortness of breath, or other concerns feel free to return the emergency department for reassessment otherwise it is very important that you follow-up with your cardiology clinic on Monday. Please call [facility] cardiology on Monday for arrangement of your follow-up appointment Referrals: [facility] [Outside] Discharge Data Discharge Date/Time-TO BE ENTERED AT DEPARTURE: 09/24/22 13:38 Medical Decision Making Patient presenting to the emergency department for chief complaint of lightheadedness. Patient states that he woke up at 2 in the morning not feeling well. He checked his blood pressure and noted it was high. Patient did write them down but at my time of assessment could not find the piece paper. medical staff services manager noted 1 reading that he showed them was 150s/ 100. Patient denies any pain or discomfort, states lightheadedness is starting to resolve since being here. He does state that at around 6 AM this morning he took his morning medications as prescribed. He does have significant history of NSTEMI, ASCVD, aortic valve replacement with pig valve, coronary artery disease, and aortic stenosis. He does state in March he just had stents placed and that he is needing some stenting per his report of his aorta. Physical exam is unremarkable except for noted trigeminy that is both palpable and able to be appreciated on cardiac exam along with grade 3 murmur. Vital signs are stable, patient no longer hypertensive and trigeminy is noted on monitor as well. At this time I feel that this may have been blood pressure related given that medication has helped this. I doubt any worsening of patient's aortic stenosis. But it is considered. Also consider differential diagnosis to include NSTEMI, aortic aneurysm, poorly controlled nocturnal blood pressure due to medication timing, anxiety. We will plan on performing labs and EKG and chest x-ray with continued monitoring. Please see physician interpretation's for EKGs upon my review with first EKG performed at check-in patient was in sinus bradycardia with rate of 57 and signs of LVH and slight left fascicular block noted on machine read. Repeat EKG was performed at my assessment due to the noted trigeminy. This EKG shows bigeminy otherwise patient is in sinus rhythm with rate of 68. We will continue to monitor. Pending labs did note that patient went back to sinus rhythm with only occasional PVCs. Review of patient's initial labs show a unremarkable CBC, CMP shows a slightly elevated BUN at 20 otherwise unremarkable CMP, normal magnesium, initial troponin is undetectable/less than 50, proBNP is elevated at 1014 but no previous records to compare with. Patient has no edema or shortness of breath. Patient is negative for COVID. Given patient's lightheadedness and not feeling well and consideration of aortic aneurysm patient is agreeable to CTA imaging. Clarified patient's iodine reported allergy which she states was more irritation post op but did not occur everywhere where iodine was placed so I do not feel this is a true allergy and will send patient for CTA. Reviewed both radiological imaging of chest x-ray and CT scan. No acute findings were noted that are of concern for patient's complaint. CTA reviewed and showed no aneurysm or acute findings of concern. Chest x-ray was also read and is noted as no acute findings. Reassessed patient and patient is asymptomatic and states improvement. We are still pending delta troponin. Reviewed delta troponin and this is also is nondetectable/less than 50. Reassessed patient patient continues to endorse that he is asymptomatic but of note he did state when he woke up he had a significant headache which was not reported previously. Due to this we will perform CT imaging of the head but feel reassured as patient has no gross neurological deficits or complaints. Received CT imaging of the head results which shows no acute intercranial hemorrhage and no other concerning factors are noted. Was able to speak with Dr. Brand with cardiology at [facility] and reviewed patient's plan for his aortic stenosis along with the noted bigeminy and EKG changes today. She states that labs and patient being now asymptomatic are very reassuring and do not feel that patient needs other emergent interventions or work-up at this point. Did discuss with her increasing patient's metoprolol but at this time due to patient's age and borderline bradycardia that we will hold off on any medication changes at this time. Patient to follow-up with [facility] cardiology early next week for further evaluation of his aortic stenosis and need of echo prior to further interventions. Discussed this plan with the patient and patient is in complete agreement with the plan of care and states that some of his symptoms may be exacerbated by his anxiety. After discussion of diagnosis and plan of care patient has no further needs, questions, or concerns and states clear understanding to return to the emergency department for any worsening symptoms. This documentation was generated using [employer] system, please disregard any oddities of phrase or misspellings. Medical Records Medical records reviewed: Yes I reviewed the patient's medical records. Imaging Data Radiologic Study #2: Attestation: I personally reviewed and interpreted this imaging study as follows: Imaging: CT Scan Radiologist's impression: PROCEDURE INFORMATION: Exam: CTA Chest With Contrast CTA Abdomen and Pelvis With Contrast Exam date and time: 09/24/2022 9:25 AM Age: 82 years old Clinical indication: Other: Lightheadedness, eval for aortic aneurysm TECHNIQUE: Imaging protocol: Computed tomographic angiography of the chest with contrast. Computed tomographic angiography of the abdomen and pelvis with contrast. 3D rendering (Not supervised by radiologist): MIP and/or 3D reconstructed images were created by the technologist. Radiation optimization: All CT scans at this facility use at least one of these dose optimization techniques: automated exposure control; mA and/or kV adjustment per patient size (includes targeted exams where dose is matched to clinical indication); or iterative reconstruction. Contrast material: OMNIPAQUE 350; Contrast volume: 100 ml; Contrast route: INTRAVENOUS (IV); COMPARISON: CR XR CHEST 2V PA LATERAL 09/24/2022 8:53 AM FINDINGS: VASCULATURE: Pulmonary arteries: No evidence of pulmonary embolus to the segmental level. Aorta: No aneurysm of the aorta. No dissection of the aorta. Celiac trunk and mesenteric arteries: Stenosis at the origin of the celiac artery. Renal arteries: Stenosis at the origin of the renal arteries. Right iliac arteries: No occlusion or significant stenosis. Left iliac arteries: No occlusion or significant stenosis. CHEST: Lungs: Atelectasis in the lingula Pleural spaces: Unremarkable. No pneumothorax. No pleural effusion. Heart: Aortic valve replacement ABDOMEN AND PELVIS: Liver: Multiple low-attenuation masses in the liver. They are larger ones are cystic. Gallbladder and bile ducts: Unremarkable. No calcified stones. No ductal dilation. Pancreas: Unremarkable. No mass. No ductal dilation. Spleen: Unremarkable. No splenomegaly. Adrenal glands: Unremarkable. No mass. Kidneys and ureters: Multiple low-attenuation areas in the kidneys. Some of the larger ones are cystic. 13 mm nodule posterior left kidney 50 Hounsfield units Stomach and bowel: 16 mm collection of air and debris projecting off of the 3rd duodenum. Most likely represents duodenal diverticulum., Less likely duodenal ulcer. Diverticulosis of the rectosigmoid. No vinny diverticulitis Appendix: Normal appendix Intraperitoneal space: Unremarkable. No free air. No significant fluid collection. Urinary bladder: Unremarkable. No mass. Reproductive: Unremarkable as visualized. Lymph nodes: Unremarkable. No enlarged lymph nodes. Bones/joints: Median sternotomy Soft tissues: Unremarkable. IMPRESSION: 1. No evidence of pulmonary embolus to the segmental level. 2. No aneurysm of the aorta. 3. No dissection of the aorta. 4. 16 mm collection of air and debris projecting off of the 3rd duodenum. Most likely represents duodenal diverticulum., Less likely duodenal ulcer. 5. Stenosis at the origin of the celiac artery. 6. Stenosis at the origin of the renal arteries. Radiologic Study: Attestation: I personally reviewed and interpreted this imaging study as follows: Imaging: X-Ray Radiologist's impression: Exam(s) PROCEDURE INFORMATION: Exam: XR Chest Exam date and time: 09/24/2022 8:53 AM Age: 82 years old Clinical indication: Other: Lightheaddedness TECHNIQUE: Imaging protocol: Radiologic exam of the chest. Views: 2 views. COMPARISON: CR XR PORTABLE CHEST AP 01/19/2022 9:31 AM FINDINGS: Lungs: Unremarkable. No consolidation. Pleural spaces: Unremarkable. No pleural effusion. No pneumothorax. Heart/Mediastinum: Cardiac valve replacement . Stable cardiac silhouette Bones/joints: Median sternotomy IMPRESSION: No acute process Radiologic Study #3: Imaging: CT Scan Radiologist's impression: Exam(s) PROCEDURE INFORMATION: Exam: CT Head Without Contrast Exam date and time: 09/24/2022 12:59 PM Age: 82 years old Clinical indication: Other: Headache, lightheadedness TECHNIQUE: Imaging protocol: Computed tomography of the head without contrast. Radiation optimization: All CT scans at this facility use at least one of these dose optimization techniques: automated exposure control; mA and/or kV adjustment per patient size (includes targeted exams where dose is matched to clinical indication); or iterative reconstruction. COMPARISON: CT HEAD CERVICAL SPINE WO 06/21/2022 9:42 AM FINDINGS: Brain: No acute intracranial hemorrhage.. There is mild diffuse heterogeneity of the white matter attenuation, consistent with chronic white matter ischemic changes. Mild cerebral atrophy Cerebral ventricles: No ventriculomegaly. Paranasal sinuses: Visualized sinuses are unremarkable. No fluid levels. Mastoid air cells: Visualized mastoid air cells are well aerated. Bones/joints: There is a displaced fracture of the right lamina papyracea on the blank. Soft tissues: Unremarkable. IMPRESSION: No acute intracranial hemorrhage.. Lab Data Lab results reviewed: Yes I reviewed the patient's lab results. HPI General Mode of arrival: ambulatory. Date/Time Provider Initiated Documentation: 09/24/22 07:26. Limitations to Documentation: no limitations. Information obtained by: patient, RN notes reviewed and old records reviewed. History of Present Illness 82 year old M presents to the emergency department with the chief complaint of Lightheadedness, described as moderate, Patient started experiencing this hour(s) (6) and it has been now resolved. No relieving factors improve symptom(s), No exacerbating factors reported . Patient notes no other symptoms.. Patient did receive the following treatments prior to arrival, other (Took morning medications) Related Data Home Medications Medication Instructions Recorded Confirmed aspirin 81 mg tablet,delayed 81 mg PO BID 09/18/13 09/24/22 release (Aspir-) metoprolol succinate 25 mg 25 mg PO DAILY 08/29/19 09/24/22 tablet,extended release 24 hr ibuprofen 200 mg tablet (Advil) 200 mg PO Q6H PRN 11/16/21 09/24/22 tamsulosin 0.4 mg capsule (Flomax) 0.4 mg PO DAILY #90 caps 03/25/22 09/24/22 atorvastatin 20 mg tablet 80 mg PO DAILY 05/31/22 09/24/22 clopidogrel 75 mg tablet (Plavix) 75 mg PO DAILY 05/31/22 09/24/22 Previous Rx's Medication Instructions Recorded tamsulosin 0.4 mg capsule (Flomax) 0.4 mg PO DAILY #90 caps 03/25/22 Allergies Allergy/AdvReac Type Severity Reaction Status Date / Time iodine Allergy Severe Verified 09/24/22 07:38 simvastatin AdvReac Intermediate upset Verified 09/24/22 07:40 stomach General Stated Complaint: GenMedical BRITTON: 2 Review of Systems Constitutional Constitutional: Denies weakness ENT Ears, Nose, Mouth, and Throat: Denies dizziness Cardiovascular Cardiovascular: Reports as per HPI, Denies chest pain, Denies syncope, Denies leg edema, Reports lightheadedness, Denies dyspnea and Reports other (High blood pressure readings at home) Respiratory Respiratory: Denies dyspnea Gastrointestinal Gastrointestinal: Denies nausea and Denies vomiting Neurologic Neurologic: Reports system reviewed and no additional complaints, except as documented, Denies dizziness, Denies syncope and Denies weakness PFSH All Active Problems (Updated 09/24/22 @ 13:23 by Ignacio Maldonado NP) Anxiety about health (Acute) Lightheadedness (Acute) Acute non-ST elevation myocardial infarction (NSTEMI) (Acute) ASCVD (arteriosclerotic cardiovascular disease) (Acute) Abnormal stress echo (Acute) Constipation (Acute ~05/2017) H/O aortic valve replacement (Acute) DVT prophylaxis (Acute) Palpitations (Acute) Coronary artery disease (Chronic) Chest pain (Acute) Aortic stenosis (Chronic) Medical History Abrasion, corneal Anxiety disorder Chest discomfort Dysphagia ED (erectile dysfunction) of organic origin GERD (gastroesophageal reflux disease) History of tobacco use Hyperlipidemia Low back pain Lower urinary tract symptoms Normal colonoscopy Sleep disturbance Urinary hesitancy Surgical History H/O aortic valve replacement S/P CABG (coronary artery bypass graft) S/P TURP TURP then ~10 yrs later green laser therapy. Both procedures done at facility in [place] Social History (Reviewed 09/24/22 @ 08:27 by FOREIGN Carter Smoking/Tobacco Use Status: Former Tobacco Use Quit Date: 07/03/84 Tobacco: How many years used: 15 Smokeless tobacco user: other Smoking risk assessment performed?: Yes Alcohol Intake: former Year quit: 1979 Drug use: Never Substance use type: does not use What type of physical activity do you participate in: walking and resistance training Frequency: 3-4 times per week Do you feel safe at home: Yes Do you feel safe in your relationship?: Yes Exam Const General: cooperative, healthy appearing, comfortable, no acute distress, not diaphoretic and not ill appearing Nutritional Appearance: average body habitus Orientation: alert, awake and oriented x3 Limitations: mental status not altered Neck Neck: normal visual inspection, full ROM, trachea midline, supple and no anterior neck swelling Thyroid: thyroid normal Carotids: normal carotid upstroke and no bruits Chest Chest: normal inspection of the chest Resp Effort & Inspection: normal respiratory effort and able to speak in complete sentences Auscultation: clear to auscultation bilaterally Cardio Jugular venous pressure: no JVD Palpation: normal PMI Rate: regular rate Rhythm: other (Trigeminy) Heart Sounds: no click, no gallops, murmur systolic III/ and no rubs Bruits: no abdominal aortic bruits and no carotid bruits Pulses: radial pulses present bilaterally 2+ GI Inspection: normal to inspection Palpation: soft, no aortic enlargement, no pulsatile masses and nontender Auscultation: normal bowel sounds Skin General skin exam: no rashes or lesions noted Neuro General: patient alert, patient awake, patient oriented x3, tone normal and moves all extremities Course Vital Signs Vital signs: Vital Signs Pulse 58 L 09/24/22 07:30 Respiratory Rate 20 09/24/22 07:30 Blood Pressure 157/74 H 09/24/22 07:30 Pulse Oximetry 98 09/24/22 07:30 Pulse 62 09/24/22 08:01 Pulse 62 09/24/22 08:01 Respiratory Rate 20 09/24/22 08:01 Respiratory Effort Normal, Non-Labored 09/24/22 07:55 Respiratory Depth Normal 09/24/22 07:55 Respiratory Pattern Normal 09/24/22 07:55 Blood Pressure 126/69 09/24/22 08:01 Blood Pressure Mean 80 09/24/22 08:01 Blood Pressure Position Supine 09/24/22 07:30 Pulse Oximetry 98 09/24/22 08:01 Oxygen Delivery Method Room Air 09/24/22 07:30 Oxygen Flow Rate 0 09/24/22 07:30 Pain Level 0 09/24/22 07:30
[2022-09-24 08:42] LABS: Source Nasal/Nares
[2022-09-24 08:57] LABS: ALT 25 U/L (16-63); AST 23 U/L (15-37); Albumin 3.6 g/dL (3.4-5.0); Alkaline Phosphatase 55 U/L (46-116); Anion Gap 7.1 mmol/L (3-11); BUN 20 mg/dL (7-18); Bilirubin, Total 0.3 mg/dL (0.2-1.0); CO2 28.9 mmol/L (21.0-32.0); Calcium 8.8 mg/dL (8.5-10.1); Chloride 106 mmol/L (98-107); Estimated GFR 75.14 (mL/min/1.73m2); Glucose 94 mg/dL (74-106); NT-proBNP 1014 pg/mL (<300); Sodium 142 mmol/L (136-145); Total Protein 7.1 g/dL (6.4-8.2); Troponin I < 50 ng/L (<or=60)
[2022-09-24 09:12] LABS: COVID-19 PCR Negative (Negative)
--- NOTE | 2022-09-24 09:14 | DI.CT_ITS ---
Exam(s) CT THORAX ABD/PEL CTA EXAM: CT THORAX ABD/PEL CTA CLINICAL HISTORY: Lightheadedness, evaluate for aortic aneurysm. TECHNIQUE: Imaging Protocol: Axial CT angiography was performed with multi-slice acquisition and m ulti-planar and/or 3D reconstructions. CONTRAST MATERIAL: Intravenous: Omnipaque 350 Contrast volume: 100 mL Oral: No COMPARISON: CT HEAD WITHOUT CONTRAST from 07/06/2012 CR,XR XR CHEST 2V PA LATERAL from 09/24/2022 FINDINGS: CHEST: Pulmonary Arteries: No evidence of filling defect to suggest pulmonary emboli. Tracheobronchial tree: Patent where visualized. Mediastinum and Bre: No dominant adenopathy or fluid collection. Pulmonary parenchyma: No consolidation or dominant measurable mass. No architectural distortion. Pleura: No effusion or pneumothorax. Heart: The heart is not dilated. Aortic valve prosthesis. Coronary artery stents. Aorta: Thoracic aorta non-dilated. Mild atherosclerotic plaque. Bones: Sternal wires. Degenerative changes in the spine. ABDOMEN AND PELVIS: Abdomen: Celiac axis: Mild stenosis. mesenteric arteries: No evidence of occlusion or significant stenosis. Renal Arteries: No evidence of occlusion. [id number] bilateral stenosis.. There is a single r enal artery perfusing each kidney. Aorta: Atherosclerotic plaque. No evidence of occlusion or significant stenosis. No aneurysm or dis section. Pelvis: Iliac Arteries: No evidence of occlusion or significant stenosis. Common Femoral Arteries: No evidence of occlusion or significant stenosis. ABDOMEN: Liver: Normal density. Cysts. No suspicious measurable mass. Portal, Superior Mesenteric, and Splenic Veins: Unremarkable. Gallbladder and Biliary Tract: No radiodense calculus or dilation. Pancreas: Normal density, no abnormal calcifications or inflammatory process. Spleen: Normal. Adrenals: No masses seen. Kidneys: Limited evaluation due to motion at this level peer normal size, contour and axis. No radiod ense stones or obstructive uropathy. Small cysts. No suspicious masses seen. Bowel: Small duodenal diverticulum. Large quantity of stool ascending and transverse colon, little e lsewhere.. Sigmoid diverticulosis. No obstruction or bowel wall thickening. Appendix is unremarkabl e. Peritoneal Cavity: No ascites, collection or mesenteric inflammatory response. Lymph Nodes: Within normal limits. Bones: Degenerative changes in the spine. Soft Tissues: Unremarkable. PELVIS: Bladder: Symmetric distention, no gross wall thickening. Reproductive Organs: Prostate not enlarged. TURP defect. Lymph Nodes: Within normal limits. Bones: Within normal limits. IMPRESSION: Atherosclerotic plaque in the aorta and branch vessels. Mild stenosis of the celiac axis and bilater al renal arteries. No evidence of aneurysm or dissection. RADIATION DOSE DELIVERED: 1,032.62mGy.cm Total DLP 1,032.62mGy.cm Total DLP DATA REPOSITORY: All CT scans at this facility are submitted to the National Radiology Data Registry (NRDR) Dose Index Registry (DIR) with the [employer] (ACR). RADIATION OPTIMIZATION: All CT scans at this facility use at least one of these dose optimization te chniques: automated exposure control; mA and/or kV adjustment per patient size (includes targeted exa ms where dose is matched to clinical indication); or iterative reconstruction.
[2022-09-24] MEDS: Normal Saline Flush 10 ML SYR IVP (09:26)
[2022-09-24] MEDS: Omnipaque 350 MG/ML 100 ML BTL IJ (09:27)
[2022-09-24] MEDS: Normal Saline - Diluent 50 ML VIAL IJ (09:28)
--- NOTE | 2022-09-24 10:24 | DI.VRAD_ITS ---
PROCEDURE INFORMATION: Exam: XR Chest Exam date and time: 09/24/2022 8:53 AM Age: 82 years old Clinical indication: Other: Lightheaddedness TECHNIQUE: Imaging protocol: Radiologic exam of the chest. Views: 2 views. COMPARISON: CR XR PORTABLE CHEST AP 01/19/2022 9:31 AM FINDINGS: Lungs: Unremarkable. No consolidation. Pleural spaces: Unremarkable. No pleural effusion. No pneumothorax. Heart/Mediastinum: Cardiac valve replacement . Stable cardiac silhouette Bones/joints: Median sternotomy IMPRESSION: No acute process Dictated and Authenticated by: Larissa Overton MD. Ordering:PAVITHRA Pierre MD
--- NOTE | 2022-09-24 10:29 | DI.VRAD_ITS ---
PROCEDURE INFORMATION: Exam: CTA Chest With Contrast CTA Abdomen and Pelvis With Contrast Exam date and time: 09/24/2022 9:25 AM Age: 82 years old Clinical indication: Other: Lightheadedness, eval for aortic aneurysm TECHNIQUE: Imaging protocol: Computed tomographic angiography of the chest with contrast. Computed tomographic angiography of the abdomen and pelvis with contrast. 3D rendering (Not supervised by radiologist): MIP and/or 3D reconstructed images were created by the technologist. Radiation optimization: All CT scans at this facility use at least one of these dose optimization techniques: automated exposure control; mA and/or kV adjustment per patient size (includes targeted exams where dose is matched to clinical indication); or iterative reconstruction. Contrast material: OMNIPAQUE 350; Contrast volume: 100 ml; Contrast route: INTRAVENOUS (IV); COMPARISON: CR XR CHEST 2V PA LATERAL 09/24/2022 8:53 AM FINDINGS: VASCULATURE: Pulmonary arteries: No evidence of pulmonary embolus to the segmental level. Aorta: No aneurysm of the aorta. No dissection of the aorta. Celiac trunk and mesenteric arteries: Stenosis at the origin of the celiac artery. Renal arteries: Stenosis at the origin of the renal arteries. Right iliac arteries: No occlusion or significant stenosis. Left iliac arteries: No occlusion or significant stenosis. CHEST: Lungs: Atelectasis in the lingula Pleural spaces: Unremarkable. No pneumothorax. No pleural effusion. Heart: Aortic valve replacement ABDOMEN AND PELVIS: Liver: Multiple low-attenuation masses in the liver. They are larger ones are cystic. Gallbladder and bile ducts: Unremarkable. No calcified stones. No ductal dilation. Pancreas: Unremarkable. No mass. No ductal dilation. Spleen: Unremarkable. No splenomegaly. Adrenal glands: Unremarkable. No mass. Kidneys and ureters: Multiple low-attenuation areas in the kidneys. Some of the larger ones are cystic. 13 mm nodule posterior left kidney 50 Hounsfield units Stomach and bowel: 16 mm collection of air and debris projecting off of the 3rd duodenum. Most likely represents duodenal diverticulum., Less likely duodenal ulcer. Diverticulosis of the rectosigmoid. No vinny diverticulitis Appendix: Normal appendix Intraperitoneal space: Unremarkable. No free air. No significant fluid collection. Urinary bladder: Unremarkable. No mass. Reproductive: Unremarkable as visualized. Lymph nodes: Unremarkable. No enlarged lymph nodes. Bones/joints: Median sternotomy Soft tissues: Unremarkable. IMPRESSION: 1. No evidence of pulmonary embolus to the segmental level. 2. No aneurysm of the aorta. 3. No dissection of the aorta. 4. 16 mm collection of air and debris projecting off of the 3rd duodenum. Most likely represents duodenal diverticulum., Less likely duodenal ulcer. 5. Stenosis at the origin of the celiac artery. 6. Stenosis at the origin of the renal arteries. A Dictated and Authenticated by: Larissa Overton MD. Ordering:PAVITHRA Pierre MD
[2022-09-24 11:12] LABS: Troponin I < 50 ng/L (<or=60)
--- NOTE | 2022-09-24 12:30 | DI.CT_ITS ---
Exam(s) CT HEAD WO EXAM: CT HEAD WO CLINICAL HISTORY: Lightheadedness, headache. TECHNIQUE: Imaging Protocol: Axial computed tomography images with coronal and sagittal reformatted images were created and reviewed COMPARISON: CT CT HEAD CERVICAL SPINE WO from 06/21/[address] THORAX ABD/PEL CTA from 09/24/2022 FINDINGS: Ventricles and Extra axial spaces: Ventricles normal in size and morphology for the patient's age. S table appearance of small bilateral symmetric sub dural hygromas. No evidence of acute subdural hemo rrhage. Hemorrhage: None. Cerebral parenchyma: Normal. Midline shift: None. Brainstem/Cerebellum: Normal. Calvarium: Normal. Visualized Paranasal sinuses/Mastoids: Clear. Soft Tissues: Unremarkable. IMPRESSION: Stable small bilateral subdural hygromas. No acute intracranial process. RADIATION DOSE DELIVERED: 787.47mGy.cm Total DLP DATA REPOSITORY: All CT scans at this facility are submitted to the National Radiology Data Registry (NRDR) Dose Index Registry (DIR) with the [employer] (A[employer]). RADIATION OPTIMIZATION: All CT scans at this facility use at least one of these dose optimization te chniques: automated exposure control; mA and/or kV adjustment per patient size (includes targeted exa ms where dose is matched to clinical indication); or iterative reconstruction.
--- NOTE | 2022-09-24 13:10 | DI.VRAD_ITS ---
PROCEDURE INFORMATION: Exam: CT Head Without Contrast Exam date and time: 09/24/2022 12:59 PM Age: 82 years old Clinical indication: Other: Headache, lightheadedness TECHNIQUE: Imaging protocol: Computed tomography of the head without contrast. Radiation optimization: All CT scans at this facility use at least one of these dose optimization techniques: automated exposure control; mA and/or kV adjustment per patient size (includes targeted exams where dose is matched to clinical indication); or iterative reconstruction. COMPARISON: CT HEAD CERVICAL SPINE WO 06/21/2022 9:42 AM FINDINGS: Brain: No acute intracranial hemorrhage.. There is mild diffuse heterogeneity of the white matter attenuation, consistent with chronic white matter ischemic changes. Mild cerebral atrophy Cerebral ventricles: No ventriculomegaly. Paranasal sinuses: Visualized sinuses are unremarkable. No fluid levels. Mastoid air cells: Visualized mastoid air cells are well aerated. Bones/joints: There is a displaced fracture of the right lamina papyracea on the blank. Soft tissues: Unremarkable. IMPRESSION: No acute intracranial hemorrhage.. Dictated and Authenticated by: Larissa Overton MD. Ordering:PAVITHRA Pierre MD
== END 2022-09-24 13:38 | disposition home or self-care (01) ==
PROVIDERS: Emergency Provider Nurse Practitioner Family; PCP Nurse Practitioner Family
DX: R42 Dizziness and giddiness (principal); F41.9 Anxiety disorder, unspecified; I13.0 Hypertensive heart and chronic kidney disease with heart failure and stage 1 through stage 4 chronic kidney disease, or unspecified chronic kidney disease; I25.2 Old myocardial infarction; I25.10 Atherosclerotic heart disease of native coronary artery without angina pectoris; I44.60 Unspecified fascicular block; R79.89 Other specified abnormal findings of blood chemistry; Z95.4 Presence of other heart-valve replacement; Z95.5 Presence of coronary angioplasty implant and graft; Z20.822 Contact with and (suspected) exposure to COVID-19
CPT/HCPCS: 36415; 71275; 80053; 87635; 93005; 99284; 99285; 70450; 71046; 74174; 83735; 83880; 84484; 85025; 93010; J3490

== ENCOUNTER → 2022-11-16 09:20 | Outpatient (BNVA) | payer MEDICARE, MEDICAID, SELFPAY | PROVIDERS: PCP Nurse Practitioner Family; Visit Provider Nurse Practitioner Gerontology | DX: N40.1 Benign prostatic hyperplasia with lower urinary tract symptoms (principal); R39.89 Other symptoms and signs involving the genitourinary system | CPT/HCPCS: 51798; 81003; 99214 ==

== ENCOUNTER 2023-02-12 05:41 | Emergency (ER) | payer MEDICARE, MEDICAID, SELFPAY ==
[2023-02-12] VITALS (53 sets, daily range): BP systolic 125–163; BP diastolic 52–82; PULSE 58–105; RESP 9–27; TEMP 36.6; O2SAT 94–100
--- NOTE | 2023-02-12 05:45 | RT.EKG_ITS ---
APPROVED REPORT Exam: Resting ECG Reason for Exam: elevated bp Patient Location: E HR:58 bpm ECG Measurements Heart Rate 58 AXIS IL 172 P 77 QRSd 101 QRS -23 QT 433 T 173 QTc 426 Conclusion Sinus bradycardia...rate< 60 Ventricular bigeminy...bigeminy string>4 w/ V complexes Repol abnrm suggests ischemia, anterolateral...ST dep, T neg, I aVL V2-V6 Bigeminy, NO STEMI, LAD, poor R wave progression, nonspecific conduction delay.Nonspecific STTW josefa es
--- NOTE | 2023-02-12 05:45 | ED.GENADUL_ITS ---
Discharge Plan Discharge Details Chief Complaint: Dizzy/Sync Primary Care Provider: DAMON GABRIEL ED Provider: Refugio Blood Home Meds and New Rx's Prescriptions: No Action ibuprofen [Advil] 200 mg tablet 200 mg PO Q6H PRN clopidogrel [Plavix] 75 mg tablet 75 mg PO DAILY atorvastatin 20 mg tablet 80 mg PO DAILY doxycycline hyclate 100 mg capsule 200 mg PO ONCE Qty: 2 0RF Rx Instructions: Take 2 tabs (200mg) x1. Be cautious of sun exposure metoprolol succinate 25 mg tablet extended release 24 hr 25 mg PO DAILY tamsulosin [Flomax] 0.4 mg capsule 0.4 mg PO DAILY Qty: 90 3RF aspirin [Aspir-81] 81 MG tablet,delayed release (DR/EC) 81 mg PO BID docusate sodium [Colace] 100 mg Capsule 100 mg PO DAILY losartan 25 mg tablet 25 mg PO DAILY Medical Decision Making <Shanell Echeverria MD - Last Filed: 02/12/23 08:29> This is a 82-year-old male who presents with elevated blood pressure readings at home. He is status post coronary artery bypass grafting in 2011 with an aortic valve replacement. In March 2022 he had 2 cardiac stents placed and in December, last month he had a TAVR procedure on his aortic valve. He has had elevated blood pressure readings at home and the investigative agent on-call called him in a prescription for losartan. The patient is not clear whether he was supposed to discontinue his metoprolol or add the losartan to it. He had left shoulder pain several days ago which was relieved by 1 nitroglycerin. He is denying any chest pain currently. He is currently in bigeminy both clinically as well as on his EKG. Currently he is pain-free and is feeling back to baseline. On arrival here his initial blood pressure was 155/66 the last 1 was 141/76. He is not tachypneic or febrile. His room air sat is 99%. My plan is to obtain blood work including a troponin and BNP. When his labs are back I will obtain a cardiology consult from [facility] Differential Diagnosis Differential Diagnosis: Elevated blood pressure, bigeminy, rebound hypertension from beta-gretel Medical Records Medical records reviewed: Yes I reviewed the patient's medical records. Medical records narrative: As above Imaging Data Radiologic Study: Imaging: X-Ray (Chest x-ray) Radiologist's impression: No acute findings to explain reported symptoms. ECG Data Attestation: I personally reviewed and interpreted this ECG (s) as follows: Prior ECG tracings: not available for review Interpretation: Bigeminy with a rate of 58. Left axis deviation. Incomplete right bundle branch block. T wave inversion in leads I, aVL and in V3 through V6. No evidence of ST elevation. HPI <Shanell Echeverria MD - Last Filed: 02/12/23 08:29> General Mode of arrival: ambulatory . Date/Time Provider Initiated Documentation: 02/12/23 05:45 . Limitations to Documentation: no limitations . Information obtained by: patient, RN notes reviewed and old records reviewed . HPI Narrative: Time seen was 5:55 AM in bed 1. The patient is a 82-year-old male who has a history of coronary artery disease with a distant coronary artery bypass grafting (2011) with a porcine aortic valve replacement. In March 2022 he had cardiac stenting and in December he had a TAVR procedure done at [facility] in December by Dr. Booker. Since his TAVR he has been taking his blood pressure several times a day. He was on metoprolol succinate 25 mg but noted to have elevated blood pressures at home and called and spoke with the investigative agent on- call Dr. Quintana who called him in a prescription for losartan 25 mg. The patient last took his metoprolol yesterday and took his new prescription for losartan last night and another one this morning. He presents today with elevated blood pressure and has a list on paper of all his recent blood pressure recordings. The patient states he woke up at 3 AM this morning to use the bathroom and felt lightheaded as though he would pass out and took his blood pressure and noted that it was 197/118 with a heart rate of 47. He repeated it several times throughout the morning. The highest reading being 200/95. He was not sure if he was supposed to continue his metoprolol and add the losartan or whether he was supposed to just discontinue metoprolol and start the losartan. He denies any chest pain. He said he had a very light headache which is since resolved. Last week he did take nitroglycerin for left shoulder and arm pain which is his anginal equivalent, he had complete relief of his pain. He denies any shortness of breath. He denies any blurry vision or abdominal pain. He denies any fevers or chills. He is currently pain-free and feels back to baseline. Related Data Home Medications Medication Instructions Recorded Confirmed aspirin 81 mg tablet,delayed 81 mg PO BID 09/18/13 02/12/23 release (Aspir-) metoprolol succinate 25 mg 25 mg PO DAILY 08/29/19 02/12/23 tablet,extended release 24 hr ibuprofen 200 mg tablet (Advil) 200 mg PO Q6H PRN 11/16/21 02/12/23 atorvastatin 20 mg tablet 80 mg PO DAILY 05/31/22 02/12/23 clopidogrel 75 mg tablet (Plavix) 75 mg PO DAILY 05/31/22 02/12/23 tamsulosin 0.4 mg capsule (Flomax) 0.4 mg PO DAILY #90 caps 11/16/22 02/12/23 doxycycline hyclate 100 mg capsule 200 mg PO ONCE #2 caps 12/29/22 02/12/23 docusate sodium 100 mg capsule 100 mg PO DAILY 02/12/23 02/12/23 (Colace) losartan 25 mg tablet 25 mg PO DAILY 02/12/23 02/12/23 Previous Rx's Medication Instructions Recorded tamsulosin 0.4 mg capsule (Flomax) 0.4 mg PO DAILY #90 caps 11/16/22 doxycycline hyclate 100 mg capsule 200 mg PO ONCE #2 caps 12/29/22 Allergies Allergy/AdvReac Type Severity Reaction Status Date / Time iodine Allergy Severe Verified 02/12/23 05:54 simvastatin AdvReac Intermediate upset Verified 02/12/23 05:54 stomach General Stated Complaint: Dizzy/Sync BRITTON: 2 Review of Systems <Shanell Echeverria MD - Last Filed: 02/12/23 08:29> Narrative: see hpi Hematologic/Lymphatic Comments: The patient is on clopidogrel 75 mg daily. [facility] <Shanell Echeverria MD - Last Filed: 02/12/23 08:29> All Active Problems Acute non-ST elevation myocardial infarction (NSTEMI) (Acute) ASCVD (arteriosclerotic cardiovascular disease) (Acute) Abnormal stress echo (Acute) Constipation (Acute ~05/2017) H/O aortic valve replacement (Acute) DVT prophylaxis (Acute) Palpitations (Acute) Coronary artery disease (Chronic) Chest pain (Acute) Aortic stenosis (Chronic) Medical History Abrasion, corneal Anxiety disorder Chest discomfort Dysphagia ED (erectile dysfunction) of organic origin GERD (gastroesophageal reflux disease) History of tobacco use Hyperlipidemia Low back pain Lower urinary tract symptoms Normal colonoscopy Sleep disturbance Urinary hesitancy Surgical History H/O aortic valve replacement S/P CABG (coronary artery bypass graft) S/P TURP TURP then ~10 yrs later green laser therapy. Both procedures done at facility in [place] Social History Smoking/Tobacco Use Status: Former Tobacco Use Quit Date: 07/03/84 Tobacco: How many years used: 15 Smokeless tobacco user: other Smoking risk assessment performed?: Yes Alcohol Intake: former Year quit: 1979 Drug use: Never Substance use type: does not use What type of physical activity do you participate in: walking and resistance training Frequency: 3-4 times per week Do you feel safe at home: Yes Do you feel safe in your relationship?: Yes Exam <Shanell Echeverria MD - Last Filed: 02/12/23 08:29> Const General: cooperative, healthy appearing, comfortable, no acute distress, well developed, well groomed and well hydrated Nutritional Appearance: average body habitus and well nourished Orientation: alert, awake and oriented x3 HENMT Head: normal to inspection, normocephalic and atraumatic Ears: hearing grossly normal bilaterally and external ears normal General nose exam: external nose normal, nares normal and no nasal discharge Face and sinus: normal facial exam, sinuses nontender and face symmetric Mouth: oral mucosae normal, lip normal, tongue normal, oropharynx normal, moist mucous membranes and other (Normal phonation. The patient is handling secretions.) Throat: posterior oropharynx normal and uvula midline Eyes General: appearance normal, both eyes and all related structures Eyelids: eyelids normal Conjunctivae: conjunctivae normal Sclera: sclerae normal Cornea: corneas normal Pupils: PERRL EOM: EOM intact bilaterally and No nystagmus Neck Neck: normal visual inspection, full ROM, no lymphadenopathy, no meningeal signs, trachea midline and supple Lymphatic: no lymphadenopathy noted Chest Other: The patient has a well-healed sternotomy scar Resp Effort & Inspection: normal respiratory effort, able to speak in complete sentences, no audible wheezes, no nasal flaring, no respiratory distress, no retractions, no stridor, not tachypneic, no tracheal deviation, no use of accessory muscles, No prolonged expiratory phase and other (Normal inspiratory to expiratory ratio.) Auscultation: clear to auscultation bilaterally, no rales, no rhonchi, no wheezes and no rubs Tactile Fremitus: tactile fremitus absent Cardio Jugular venous pressure: no JVD Palpation: normal PMI Rate: regular rate Rhythm: abnormal rhythm regularly irregular Heart Sounds: S1 normal, S2 normal, no gallops, murmur (1/6 systolic ejection murmur with every other beat) systolic and no rubs GI Inspection: non-distended Palpation: soft, no hepatosplenomegaly, no guarding and nontender Percussion: normal to percussion Auscultation: normal bowel sounds General: No CVA tenderness Back/Spine/Pelvis Back: no CVA tenderness and No back tenderness Cervical Spine: normal cervical lordosis, cervical ROM normal, No cervical muscular tenderness, No pain with cervical ROM, No cervical spinal tenderness and No step off deformity Thoracic/Lumbar Spine: thoracic and lumbar spine normal to inspection, No thor acic spinal tenderness and No lumbar spinal tenderness Pelvis: no pain with anterior-posterior compression and no pain with lateral compression Other: He has a small lipoma in the left mid thoracic region of his back Skin General skin exam: no rashes or lesions noted, turgor normal, no petechiae, no purpura and other (Skin is normal for ethnicity.) Lesions: no lesions Rashes: no rashes Trauma: no lacerations or abrasions Neuro General: patient alert, patient awake, patient oriented x3, moves all extremities, no meningeal signs, no focal motor deficits and CN's II-XI intact bilaterally Cranial Nerves: CN's II-XI intact bilaterally, PERRL, accommodation normal, EOM intact bilaterally, no nystagmus, facial strength normal, tongue midline, hearing normal and no nystagmus Cognition: normal cognition Speech: speech normal Gait: normal gait Motor: muscle tone normal throughout and strength 5/5 throughout Sensory Exam: no sensory deficits noted Extrem General: normal to inspection, full ROM, capillary refill normal, no calf tenderness, normal gait, no calf tenderness bilaterally, no cyanosis and edema (Trace bilateral pedal edema to the lower ankles) Laterality: bilateral Psych Appearance: grossly normal Affect: normal affect Attitude: cooperative Thought Process: normal Thought Content: normal Insight: insight good Judgment: judgment good Other: The patient appears to have capacity make medical decisions. <Refugio Blood MD - Last Filed: 02/12/23 09:32> Patient with normal blood pressures here in the emergency department resolution of symptoms prior to my taking over the case. Case discussed Dr. Elaine, [facility] cardiology. Plan is to continue metoprolol increase losartan to 50 mg Sign Out <Shanell Echeverria MD - Last Filed: 02/12/23 08:29> Sign Out Data: Sign Out Comment: The patient is a 82-year-old male who is status post coronary artery bypass grafting, with porcine aortic valve replacement 11 years ago who underwent cardiac stenting in March 2022 and a TAVR procedure last month. He presents today with elevated blood pressure and no chest pain. He had been prescribed losartan but was not clear whether this was in addition to or replacing his metoprolol. He is in bigeminy. We are awaiting lab work and the plan will be to contact cardiology about his bigeminy and his antihypertensives. He will likely be discharged home Last updated by Shanell Echeverria MD at 02/12/23 08:16
--- NOTE | 2023-02-12 06:45 | DI.RAD_ITS ---
Exam(s) XR CHEST 2V PA LATERAL EXAM: XR CHEST 2V PA LATERAL CLINICAL HISTORY: dizziness/CP TECHNIQUE: 2D digital imaging was performed. COMPARISON: CT CT THORAX ABD/PEL CTA from 09/24/2022 CR,XR XR CHEST 2V PA LATERAL from 09/24/2022 FINDINGS: HEART: Normal size. Coronary artery stents. TAVR. Aorta: Not dilated. PULMONARY VASCULATURE: Normal. LUNGS: Clear. PLEURAL SPACE: No pleural effusion or pneumothorax. BONE:Sternal wires. Degenerative changes in the thoracic spine. IMPRESSION: No acute abnormality. DATA REPOSITORY: RADIATION DOSE DELIVERED:
[2023-02-12 07:25] LABS: Abs Immature Grans 0.02 10^3/uL (0.0-0.06); Absolute Basophil Count 0.05 10^3/uL (0.0-0.2); Absolute Eosinophil Count 0.27 10^3/uL (0.0-0.7); Absolute Lymphocyte Count 1.75 10^3/uL (1.2-3.4); Absolute Neutrophil Count 3.66 10^3/uL (1.2-6.7); Basophils % 0.8; Eosinophils % 4.3; HGB 14.8 g/dL (13.5-17.5); Immature Grans % 0.3; Lymphocytes % 27.6; MCH 31.7 pg (27.0-33.0); MCHC 33.6 % (32.0-36.0); MCV 94 fL (80-95); MPV 10.3 fL (8.0-11.0); Monocytes % 9.4; Neutrophils % 57.6; Platelet Count 151 10^3/uL (130-400); RBC 4.67 10^6/uL (4.36-5.78); RDW 12.4 % (11.8-14.1); RDW-SD 42.6 fL; WBC 6.35 10^3/uL (4.4-10.8)
--- NOTE | 2023-02-12 07:33 | NUR.NOTE ---
Nursing Note: 0700 this RN took report and resumed care for patient. Patient lungs clear throughout, still c/o dizzyness. Call light within reach of the patient at this time of writing.
[2023-02-12 07:41] LABS: INR 1.1 (0.9-1.1); PTT Activated 27.2 sec (21.5-31.9)
--- NOTE | 2023-02-12 07:41 | DI.VRAD_ITS ---
PROCEDURE INFORMATION: Exam: XR Chest Exam date and time: 02/12/2023 7:28 AM Age: 82 years old Clinical indication: Pain; Other: Unspecified; Patient HX: Dizziness, cp TECHNIQUE: Imaging protocol: Radiologic exam of the chest. Views: 2 views. COMPARISON: CR XR CHEST 2V PA LATERAL 09/24/2022 8:53 AM FINDINGS: Lungs: No focal consolidation seen. Pleural spaces: No large pleural effusion seen. Heart/Mediastinum: No cardiomegaly. Bones/joints: Grossly unremarkable. IMPRESSION: No acute findings to explain reported symptoms. Dictated and Authenticated by: Gi Jones MD. Ordering:HARJIT Reece MD
[2023-02-12 07:55] LABS: ALT 21 U/L (16-63); AST 22 U/L (15-37); Albumin 3.3 g/dL (3.4-5.0); Alkaline Phosphatase 55 U/L (46-116); BUN 12 mg/dL (7-18); Bilirubin, Total 0.5 mg/dL (0.2-1.0); Calcium 8.6 mg/dL (8.5-10.1); Chloride 104 mmol/L (98-107); Estimated GFR 75.14 (mL/min/1.73m2); Glucose 93 mg/dL (74-106); Magnesium 2.1 mg/dL (1.8-2.4); Potassium 4.2 mmol/L (3.5-5.1); Sodium 139 mmol/L (136-145); Total Protein 6.6 g/dL (6.4-8.2); Troponin I < 50 ng/L (<or=60)
[2023-02-12 07:59] LABS: D-Dimer 650 ng/mlFEU (<500)
[2023-02-12 08:15] LABS: NT-proBNP 958 pg/mL (<300)
[2023-02-12 10:37] LABS: Troponin I < 50 ng/L (<or=60)
--- NOTE | 2023-02-15 12:10 | NUR.NOTE ---
IN CHART TO CHECK STATUS OF ECGNursing Note:
== END 2023-02-12 11:11 | disposition home or self-care (01) ==
PROVIDERS: Emergency Medicine Emergency Medical Services; Emergency Provider Emergency Medicine; PCP Nurse Practitioner Family
DX: R42 Dizziness and giddiness (principal); R00.1 Bradycardia, unspecified; R07.9 Chest pain, unspecified; R06.02 Shortness of breath; I25.10 Atherosclerotic heart disease of native coronary artery without angina pectoris; I10 Essential (primary) hypertension; Z95.5 Presence of coronary angioplasty implant and graft; Z95.1 Presence of aortocoronary bypass graft; Z79.01 Long term (current) use of anticoagulants; Z87.891 Personal history of nicotine dependence
CPT/HCPCS: 36415; 80053; 93005; 99283; 71046; 83735; 83880; 84484; 85025; 85379; 85610; 85730; 93010

== ENCOUNTER 2023-02-28 10:10 | Emergency (ER) | payer MEDICARE, MEDICAID, SELFPAY ==
[2023-02-28 10:17] VITALS: BP 125/64; PULSE 52; RESP 20; TEMP 37; O2SAT 99
--- NOTE | 2023-02-28 12:09 | ED.GENADUL_ITS ---
Discharge Plan Disposition Patient Disposition: Home Condition: Stable Discharge Details Clinical Impression: Elevated blood pressure reading Primary Care Provider: DAMON GABRIEL ED Provider: Evangelina Kwon Home Meds and New Rx's Prescriptions: Continued ibuprofen [Advil] 200 mg tablet 200 mg PO Q6H PRN clopidogrel [Plavix] 75 mg tablet 75 mg PO DAILY atorvastatin 20 mg tablet 80 mg PO DAILY doxycycline hyclate 100 mg capsule 200 mg PO ONCE Qty: 2 0RF Rx Instructions: Take 2 tabs (200mg) x1. Be cautious of sun exposure metoprolol succinate 25 mg tablet extended release 24 hr 25 mg PO DAILY tamsulosin [Flomax] 0.4 mg capsule 0.4 mg PO DAILY Qty: 90 3RF aspirin [Aspir-81] 81 MG tablet,delayed release (DR/EC) 81 mg PO BID docusate sodium [Colace] 100 mg Capsule 100 mg PO DAILY losartan 25 mg tablet 25 mg PO DAILY Discharge Instructions Additional Instructions: Recommend taking metoprolol in the morning and losartan at night, you may talk to your doctor about this but I will give you better spectrum of coverage likely Please return should you have new or worsening complaints, symptoms including headache, chest pain, shortness of breath Your blood pressure was 120/64 today in the emergency department, this is excellent Referrals: DAMON GABRIEL, CONSTRUCTION COORDINATOR [Primary Care Provider] - Discharge Data Discharge Date/Time-TO BE ENTERED AT DEPARTURE: 02/28/23 11:00 Medical Decision Making 82-year-old male who is alert, oriented, in no acute distress stable vitals and blood pressure 125/64 He is not endorsing any symptoms and I see no clear evidence for additional assessment at this time Did recommend perhaps changing his medications to metoprolol in the morning and losartan before bed He will talk with his doctor regarding this Return precautions reviewed and patient expressed understanding HPI General Date/Time Provider Initiated Documentation: 02/28/23 10:11 . HPI Narrative: This 82-year-old male presents with report of high blood pressure for the last few days. He states that he has been completely asymptomatic. He was just concerned regarding the persistent hypertension. He states he takes his blood pressures in the morning, this was before his blood pressure medications, he ta kes both of his blood pressures, losartan and metoprolol for second morning. He is wondering if he should change his regimen. He denies any headache, vision change, chest pain, shortness of breath, dizziness, weakness, or any additional complaints at this time. Related Data Home Medications Medication Instructions Recorded Confirmed aspirin 81 mg tablet,delayed 81 mg PO BID 09/18/13 02/12/23 release (Aspir-) metoprolol succinate 25 mg 25 mg PO DAILY 08/29/19 02/12/23 tablet,extended release 24 hr ibuprofen 200 mg tablet (Advil) 200 mg PO Q6H PRN 11/16/21 02/12/23 atorvastatin 20 mg tablet 80 mg PO DAILY 05/31/22 02/12/23 clopidogrel 75 mg tablet (Plavix) 75 mg PO DAILY 05/31/22 02/12/23 tamsulosin 0.4 mg capsule (Flomax) 0.4 mg PO DAILY #90 caps 11/16/22 02/12/23 doxycycline hyclate 100 mg capsule 200 mg PO ONCE #2 caps 12/29/22 02/12/23 docusate sodium 100 mg capsule 100 mg PO DAILY 02/12/23 02/12/23 (Colace) losartan 25 mg tablet 25 mg PO DAILY 02/12/23 02/12/23 Previous Rx's Medication Instructions Recorded tamsulosin 0.4 mg capsule (Flomax) 0.4 mg PO DAILY #90 caps 11/16/22 doxycycline hyclate 100 mg capsule 200 mg PO ONCE #2 caps 12/29/22 Allergies Allergy/AdvReac Type Severity Reaction Status Date / Time iodine Allergy Severe Verified 02/28/23 10:21 simvastatin AdvReac Intermediate upset Verified 02/28/23 10:21 stomach General Stated Complaint: GenMedical BRITTON: 4 PFSH All Active Problems (Updated 02/28/23 @ 10:55 by ASHKAN Ayala) Hypertension (Chronic) Elevated blood pressure reading (Acute) Acute non-ST elevation myocardial infarction (NSTEMI) (Acute) ASCVD (arteriosclerotic cardiovascular disease) (Acute) Abnormal stress echo (Acute) Constipation (Acute ~05/2017) H/O aortic valve replacement (Acute) DVT prophylaxis (Acute) Palpitations (Acute) Coronary artery disease (Chronic) Chest pain (Acute) Aortic stenosis (Chronic) Medical History Abrasion, corneal Anxiety disorder Chest discomfort Dysphagia ED (erectile dysfunction) of organic origin GERD (gastroesophageal reflux disease) History of tobacco use Hyperlipidemia Low back pain Lower urinary tract symptoms Normal colonoscopy Sleep disturbance Urinary hesitancy Surgical History H/O aortic valve replacement S/P CABG (coronary artery bypass graft) S/P TURP TURP then ~10 yrs later green laser therapy. Both procedures done at facility in [place] Social History Smoking/Tobacco Use Status: Former Tobacco Use Quit Date: 07/03/84 Tobacco: How many years used: 15 Smokeless tobacco user: other Smoking risk assessment performed?: Yes Alcohol Intake: former Year quit: 1979 Drug use: Never Substance use type: does not use What type of physical activity do you participate in: walking and resistance training Frequency: 3-4 times per week Do you feel safe at home: Yes Do you feel safe in your relationship?: Yes Course Vital Signs Vital signs: Vital Signs Temperature 37 C 02/28/23 10:17 Pulse 52 L 02/28/23 10:17 Respiratory Rate 20 02/28/23 10:17 Blood Pressure 125/64 02/28/23 10:17 Pulse Oximetry 99 02/28/23 10:17 Temperature 37 C 02/28/23 10:17 Temperature Source Oral 02/28/23 10:17 Pulse 52 L 02/28/23 10:17 Respiratory Rate 20 02/28/23 10:17 Respiratory Effort Normal, Incrsd Work of Breathing 02/28/23 10:22 Blood Pressure 125/64 02/28/23 10:17 Blood Pressure Position Sitting 02/28/23 10:17 Pulse Oximetry 99 02/28/23 10:17 Oxygen Delivery Method Room Air 02/28/23 10:17 Oxygen Flow Rate 0 02/28/23 10:17
== END 2023-02-28 11:00 | disposition home or self-care (01) ==
PROVIDERS: Emergency Provider Physician Assistant; PCP Nurse Practitioner Family
DX: I10 Essential (primary) hypertension (principal); Z79.899 Other long term (current) drug therapy
CPT/HCPCS: 99281; 99282

== ENCOUNTER 2023-03-02 19:06 | Outpatient (REF) | payer MEDICARE, MEDICAID, SELFPAY ==
[2023-03-02 16:36] LABS: Anion Gap 6.6 mmol/L (3-11); BUN 16 mg/dL (7-18); CO2 29.4 mmol/L (21.0-32.0); Calcium 8.7 mg/dL (8.5-10.1); Chloride 104 mmol/L (98-107); Estimated GFR 75.14 (mL/min/1.73m2); Glucose 107 mg/dL (74-106); Potassium 4.2 mmol/L (3.5-5.1); Sodium 140 mmol/L (136-145)
== END 2023-03-02 19:07 | disposition home or self-care (01) ==
LOC: NCHCN 19:06
PROVIDERS: PCP Nurse Practitioner Family; Visit Provider Nurse Practitioner Family
DX: I25.10 Atherosclerotic heart disease of native coronary artery without angina pectoris (principal); F41.8 Other specified anxiety disorders
CPT/HCPCS: 80048

== ENCOUNTER 2023-04-07 11:26 | Outpatient (CLI) | payer MEDICARE, MEDICAID, SELFPAY ==
[2023-04-07 11:56] LABS: Anion Gap 6.2 mmol/L (3-11); BUN 15 mg/dL (7-18); CO2 27.8 mmol/L (21.0-32.0); Calcium 9.1 mg/dL (8.5-10.1); Chloride 101 mmol/L (98-107); Estimated GFR 75.14 (mL/min/1.73m2); Glucose 104 mg/dL (74-106); Sodium 135 mmol/L (136-145)
== END 2023-04-07 11:27 | disposition home or self-care (01) ==
LOC: LBO 11:26
PROVIDERS: PCP Nurse Practitioner Family
DX: I10 Essential (primary) hypertension (principal); Z00.00 Encounter for general adult medical examination without abnormal findings
CPT/HCPCS: 36415; 80048

== ENCOUNTER → 2023-05-15 09:44 | Outpatient (BNVA) | payer MEDICARE, MEDICAID, SELFPAY | PROVIDERS: PCP Nurse Practitioner Family; Visit Provider Nurse Practitioner Gerontology | DX: R31.9 Hematuria, unspecified (principal); R39.89 Other symptoms and signs involving the genitourinary system | CPT/HCPCS: 51798; 99213 ==

== ENCOUNTER → 2023-11-15 09:23 | Outpatient (BNVA) | payer MEDICARE, MEDICAID, SELFPAY | PROVIDERS: PCP Nurse Practitioner Family; Referring Provider Nurse Practitioner Family; Visit Provider Nurse Practitioner Gerontology | DX: N40.1 Benign prostatic hyperplasia with lower urinary tract symptoms (principal); R35.1 Nocturia | CPT/HCPCS: 51798; 99213 ==

== ENCOUNTER 2023-12-29 11:24 | Day surgery (SDC) | payer MEDICARE, MEDICAID, SELFPAY ==
--- NOTE | 2023-12-29 06:00 | RT.EKG_ITS ---
APPROVED REPORT Exam: Resting ECG Reason for Exam: PRE OP Patient Location: O HR:56 bpm ECG Measurements Heart Rate 56 AXIS AZ 169 P 66 QRSd 93 QRS -51 QT 429 T 82 QTc 414 Conclusion Sinus bradycardia...rate< 60 Left anterior fascicular block.. Atrial premature beat Left ventricular hypertrophy with repolarization abnormalities
[2023-12-29 12:21] VITALS: BP 137/77; PULSE 61; RESP 16; TEMP 36.7; O2SAT 97
--- NOTE | 2023-12-29 13:16 | W.ANESPRE ---
General Info Date of Service Date Performed: 12/29/23 Height: 6 ft Weight: 74.208 kg Body Mass Index (BMI): 22.1 Surgical Procedure: Operation Date: 12/29/23 13:55 Proposed Procedure Side Surgeon p Cataract Extraction with IOL Implant Left Nelson Peng MD Meds Allergies and Home Medications Allergies Allergy/AdvReac Type Severity Reaction Status Date / Time iodine Allergy Severe Other (See Verified 12/29/23 12:34 Comment) simvastatin AdvReac Intermediate upset Verified 12/29/23 12:34 stomach Home Medication Medication Instructions Recorded aspirin 81 mg tablet,delayed 81 mg PO BID 09/18/13 release (Aspir-) ibuprofen 200 mg tablet (Advil) 200 mg PO Q6H PRN 11/16/21 atorvastatin 20 mg tablet 80 mg PO DAILY 05/31/22 clopidogrel 75 mg tablet (Plavix) 75 mg PO DAILY 05/31/22 docusate sodium 100 mg capsule 100 mg PO DAILY 02/12/23 (Colace) escitalopram oxalate 10 mg tablet 10 mg PO DAILY 05/15/23 (Lexapro) losartan 25 mg tablet 50 mg PO DAILY 05/15/23 mirtazapine 7.5 mg tablet 7.5 mg PO DAILY 05/15/23 tamsulosin 0.4 mg capsule (Flomax) 0.4 mg PO DAILY #90 caps 05/15/23 amlodipine 5 mg tablet 5 mg PO DAILY 12/28/23 metoprolol succinate 50 mg 50 mg PO DAILY 12/29/23 tablet,extended release 24 hr Current Visit Medications: Current Medications Generic Name Dose Route Start Last Admin Trade Name Freq PRN Reason Stop Dose Admin Acetaminophen 1,000 mg 12/29/23 06:00 Acetaminophen 500 Mg Tab PO 01/28/24 05:59 Q4H PRN PRN Balanced Salt Solution 500 ml 12/29/23 06:00 Balanced Salt Soln.-Plus 500 Ml Bag OP 01/28/24 05:59 DIRECTED MARI Miscellaneous Medication 0 ml 12/29/23 06:00 Prednisolone 1%, Moxifloxacin 0.5%, Bromfenac 0.09% 5ml Btl OS 01/28/24 05:59 DIRECTED MARI Miscellaneous Medication 0 ml 12/29/23 06:00 12/29/23 12:31 Tropicam./Phenyleph. 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 Abnormal stress echo R94.39 Constipation ~05/2017 H/O aortic valve replacement Z95.2 DVT prophylaxis Z29.9 Palpitations R00.2 Coronary artery disease I25.10 Chest pain R07.9 Aortic stenosis I35.0 Medical History Medical History Urinary hesitancy Abrasion, corneal Normal colonoscopy Lower urinary tract symptoms GERD (gastroesophageal reflux disease) Chest discomfort Hyperlipidemia Dysphagia Anxiety disorder History of tobacco use ED (erectile dysfunction) of organic origin Sleep disturbance Low back pain Surgical History Surgical History (Updated 12/29/23 @ 12:34 by Carolina Argueta RN) History of colonoscopy S/P TURP TURP then ~10 yrs later green laser therapy. Both procedures done at facility in [place] H/O aortic valve replacement S/P CABG (coronary artery bypass graft) Tobacco Smoking/Tobacco Use Status: Former Tobacco Use Smokeless tobacco user: other Alcohol Alcohol Intake: former Year quit: 1979 Substance Use Substance use: Never Substance use type: does not use Vital Signs and Lab Results Vital Signs Most Recent Vital Signs in EMR: Most Recent Vital Signs Temp Pulse Resp BP Pulse Ox 36.7 C 61 16 137/77 97 12/29/23 12:21 12/29/23 12:21 12/29/23 12:21 12/29/23 12:21 12/29/23 12:21 Lab Results Blood Type / Crossmatch: No Data to Display Complete Blood Count: No Data to Display Complete Metabolic Panel: No Data to Display Liver Function Panel: No Data to Display Coagulation Panel: No Data to Display Cardiac Panel: No Data to Display Arterial Blood Gas: No Data to Display Venous Blood Gas: No Data to Display Pancreas Panel: No Data to Display Thyroid Panel: No Data to Display Infectious Disease: No Data to Display Blood Cultures: No Data to Display Toxicology Panel: No Data to Display Imaging and Studies Imaging and Studies Study information below may be from another EMR and interpreted by another provider. Please see original notes in EMR for more complete details. EKG Summary: EKG PATIENT NAME: Carole Sanders UNIT #: [id number] ORDERING PROVIDER: Dasha Walden CRNA PRIMARY CARE PROVIDER: DAMON GABRIEL NP DATE/TIME OF SERVICE: 12/29/23 1106 : 1940 PERFORMING LOCATION: [facility] APPROVED REPORT Exam: Resting ECG Reason for Exam: PRE OP Patient Location: O HR:56 bpm ECG Measurements Heart Rate 56 AXIS VT 169 P 66 QRSd 93 QRS -51 QT 429 T82 QTc 414 Conclusion Sinus bradycardia...rate< 60 Left anterior fascicular block.. Atrial premature beat Left ventricular hypertrophy with repolarization abnormalities <Electronically signed by KENDRA DARLING MD in [place]> E-Sign Date: 12/29/23 E-Sign Time: 1218 Stress Test Summary: Patient Name: CAROLE SANDERS Unit #: [id number] Loc: [place] Ordering Provider: Landon Vaca M.D. Status: DIS IN Primary Care Provider: Anahi Gregorio Date of Exam: 02/08/19 Sex: M : 1940 Age: 78 Exam(s) a NM:NM MPI rest & stress grp *[facility] [place]* *[facility]* [address] [place] [address] Myocardial Perfusion Imaging - SPECT Jose R protocol Date of study: 02/08/2019 *PATIENT PRESENTATION* Height: 180.3cm (71in) Blood Pressure: Weight: 78.6kg (173lb) BSA: 1.99m^2 Referring physician: Jan Bai MD Ordering physician: Landon Vaca Impressions: - Normal perfusion by Tc99m Sestamibi Imaging. - By visual estimation LV function appears normal. Summary: 1. Myocardial perfusion imaging: No myocardial perfusion defects noted. 2. The calculated left ventricular ejection fraction after stress: 48%. LV global systolic function is mildly reduced. Diffuse left ventricular regional motion abnormalities. Indication: R07.9. History: REASON FOR TESTING:FOR THE PAST MONTH, PT HAS BEEN EXPERIENCING CHEST TIGHTNESS, DIZZINESS, AND PALPITATIONS. THESE HAVE BEEN PROGESSIVELY WORSE OVER TIME. PMH:AORTIC VALVE STENOSIS WITH REPALCEMENT, CAD WITH CABG OF LAD AND PDA, WITH PROGRESSION OF DISEASE ON HEART CATH IN 2011, ANXIETY, CONSTIPATION, DYSPHAGIA, ED, GERD,HYPERLIPIDEMIA, LOW BACK PAIN, FAMILY:FATHER- CAD, AORTIC ANURYSM. MOTHER- CAD, HEART FAILURE. SMOKING: QUIT 1983, SMOKED 1PPD X 37 YEARS. EXCERCISE: NO REGULAR EXCERCISE. Risk factors: Family history of coronary artery disease. Cholesterol: 190mg/dl. HDL: 53mg/dl. LDL: 128mg/dl. Triglycerides: 101mg/dl. ALLERGIES: IODINE HOME MEDICATIONS: PEPPERMINT OIL 90 MG BID, CLORAZEPATE DIPOTASSIUM 3.5 MG HS NEEDED, ASPIRIN 81 MG BID. SEE INPATIENT MEDICATIONS. Imaging Technique: Protocol: Jose R protocol. Acquisition: Gated SPECT; 1 day - rest/stress. The patient was imaged in the supine position. Attenuation correction used. Isotope administration: - Rest. Tc[99m]-sestamibi. Dose: 10.1mCi. Injection time: 11:30 AM. Injection to stress time: 00:45. - Stress. Tc[99m]-sestamibi. Dose: 32mCi. Injection time: 01:45 PM. 1-2 min before end of exercise Baseline ECG: LAST EKG 02/06/19-SINUS RHYTHM, NONSPECIFIC ST DEPRESSION, T-ABNORMALITY. POSSIBLE ANTEROLATERAL ISCHEMIA. TODAY'S EKG-SINUS BRADYCARDIA, HR 58. Stress protocol: + +---+ +---+ !Stage !HR !BP (mmHg) !Sat! + +---+ +---+ !Baseline supine !58 !170/86 (114)!---! + +---+ +---+ !Baseline standing !69 !168/80 (109)!95%! + +---+ +---+ !Stage I; 1.7mph, 10degrees; 3 min !103!170/82 (111)!95%! + +---+ +---+ !Stage II; 2.5mph, 12degrees; 3 min!104!178/92 (121)!---! + +---+ +---+ !Recovery; 1 min !105!180/78 (112)!---! + +---+ +---+ !Recovery; 3 min !80 !178/82 (114)!---! + +---+ +---+ !Recovery; 6 min !77 !168/82 (111)!---! + +---+ +---+ * Stress results: The rate-pressure product for the peak heart rate and blood pressure was 12860mi Hg/min. Stress ECG: EXCERCISE TESTING ENDED IN 8 MINS, 39 SECS DUE TO FATIGUE. MAX HR WAS 122, 85% OF TARGET. HYPERTENSIVE AT BASELINE, WITH A NORMAL BLOOD PRESSURE RESPONSE. METS: 10.16 ECTOPY:FREQUENT PVCS, WITH TRIGEMINY OF PVC'S NOTED AFTER 3 MINS OF EXCERCISE. ANGINA: NO REPORTED CHEST PAIN OR PRESSURE. ISCHEMIA: NO ISCHEMIC CHANGES NOTED. FUNCTIONAL CAPACITY: ABOVE AVERAGE CAPACITY. NOTE-PATIENT ARRIVED WITHOUT SHOES, ONLY HOSPITAL SOCKS. HE FELT UNSURE OF HIS FOOTING WITHOUT SHOES, AND THEREFORE DID NOT EXCERCISE LONG HE FELT HE COULD HAVE. Myocardial perfusion: Imaging information: gated. No myocardial perfusion defects noted. Ventricular Function (Wall Motion): The calculated left ventricular ejection fraction after stress: 48%. LV global systolic function is mildly reduced. Diffuse left ventricular regional motion abnormalities. Study data: Cassy Lafleur MD supervised and was readily available during the procedure. This study was interpreted by [facility]. Study status: Routine. Consent: The risks, benefits, and alternatives to the procedure were explained to the patient and informed consent was obtained. Procedure: Initial setup. A baseline ECG was recorded. Surface ECG leads and manual cuff blood pressure measurements were monitored. Heart sounds: Normal. Lung sounds: Normal. Treadmill exercise testing was performed using the Jose R protocol. Study completion: All catheters inserted during the procedure were removed. The patient tolerated the procedure well and was discharged from the lab. Discharge: The patient left the laboratory in stable condition. Birthdate: Patient birthdate: 1940. Sex: Gender: male. Study date: Study date: 02/08/2019. Study time: 00:01 AM. Signature Documentation: - The imaging portion of this study was interpreted by Nuclear Rail Switch Operator Denice Pang MD. - The imaging portion of this study was interpreted by Nuclear Radiologist Gus Santos MD. - The Stress ECG portion of this study was interpreted by Denice Pang MD. Electronically signed by Denice Pang 02/08/2019 15:28 Ordering provider: Landon Vaca M.D. CC: Dictated by: Gus Santos M.D.02/08/19 1430 <Electronically signed by Gus Santos M.D.>02/11/19 4944 Disclaimer: The [facility] radiologist is signing only the Nuclear Medicine MPI Imaging exam portion of the report. Transcribed by: Yamilka Beckman02/10/19 1042 This is privileged, confidential information intended only for the provider named. Any use or distribution by any person other than this provider is strictly prohibited. If you receive this report in error, please notify us immediately at [phone] and return the original report to us at the address above. Thank-you. Echocardiogram Summary: Patient Name: CAROLE SANDERS Unit #: [id number] Loc: [place] Ordering Provider: Robert Musa Status: ADM IN Primary Care Provider: Anahi Gregorio Date of Exam: 02/07/19 Sex: M : 1940 Age: 78 Exam(s) a US:US echocardiogram *[facility] [place]* *[facility]* [address] [place] [address] Date of study: 02/07/2019 Transthoracic Echocardiography M-mode, complete 2D, complete spectral Doppler, and color Doppler *STUDY CONCLUSIONS* Impressions: Very similar bioprosthetic aortic valve echo hemodynamic parameters compared to 2018 study. Summary: 1. Left ventricle: The cavity size was normal. Wall thickness was increased in a pattern of severe LVH. Systolic function was hyperdynamic. The estimated ejection fraction was 65-70%. Diastolic parameters were normal for age. There was no evidence of elevated ventricular filling pressure by Doppler parameters. 2. Aortic valve: A bioprosthesis was present and functioning abnormally, moderately stenotic. The sewing ring appeared normal. Peak velocity (S): 4.4m/sec. Mean gradient (S): 43.3mm Hg. VTI ratio of LVOT to aortic valve: 0.3. Acceleration time <100 ms. Indexed valve area (Vmean): 0.4cm^2/m^2, suggesting severe patient -prosthesis mismatch. 3. Mitral valve: There was mild regurgitation. Valve area by pressure half-time: 1.8cm^2. 4. Right ventricle: The cavity size was normal. Wall thickness was normal. Systolic function was normal. 5. Atrial septum: No defect or patent foramen ovale was identified. 6. Pulmonary arteries: Systolic pressure could not be accurately estimated. 7. Inferior vena cava: The vessel was patent and normal in size. The respirophasic diameter changes were in the normal range (greater than or equal to 50%), consistent with normal central venous pressure. *PATIENT PRESENTATION* Height: 180.3cm (71in ) S/D Pressure: 163 / 75 Weight: 83kg (182.6lb ) BSA: 2.05m^2 Test start time: 12:40 PM. Test stop time: 01:45 PM. PERFORMING Unknown PERFORMING [facility] CONSULTING Guero Musa ORDERING Guero Musa REFERRING Guero Musa THORACIC MEDICINE PHYSICIAN Sharmila Almanzar, RT (R)(CT), [facility] *PROCEDURE DATA* Procedure information: The patient was identified by two identifiers. This study was interpreted by [facility]. Pertinent images and digital data are archived for permanent storage and are available for subsequent review. Comparison was made to the study of 08/18/2017. Study status: Routine. Transthoracic echocardiography. M-mode, complete 2D, complete spectral Doppler, and color Doppler. A Transthoracic Echocardiogram was performed. Scanning was performed from the parasternal, apical, subcostal, and suprasternal notch acoustic windows. Images were obtained using an [id number] cardiac ultrasound machine. Image quality was good. Study completion: The patient tolerated the procedure well. History: PMH: Aortic stenosis. *CARDIAC ANATOMY* Left ventricle: The cavity size was normal. Wall thickness was increased in a pattern of severe LVH. Systolic function was hyperdynamic. The estimated ejection fraction was 65-70%. The tissue Doppler parameters were abnormal. Diastolic parameters were normal for age. There was no evidence of elevated ventricular filling pressure by Doppler parameters. Aortic valve: A bioprosthesis was present and functioning abnormally. The sewing ring appeared normal. Doppler: There was no regurgitation. VTI ratio of LVOT to aortic valve: 0.3. Valve area (VTI): 1cm^2. Indexed valve area (VTI): 0.5cm^2/m^2. Peak velocity ratio of LVOT to aortic valve: 0.24. Valve area (Vmax): 0.8cm^2. Indexed valve area (Vmax): 0.4cm^2/m^2. Mean velocity ratio of LVOT to aortic valve: 0.27. Valve area (Vmean): 0.9cm^2. Indexed valve area (Vmean): 0.4cm^2/m^2, suggesting severe patient -prosthesis mismatch. Mean gradient (S): 43.3mm Hg. Peak gradient (S): 78mm Hg. Aorta: Aortic root: The aortic root was normal in size. Ascending aorta: The ascending aorta was mildly dilated. Mitral valve: Doppler: There was no evidence for stenosis. There was mild regurgitation. Valve area by pressure half-time: 1.8cm^2. Indexed valve area by pressure half-time: 0.9cm^2/m^2. Left atrium: The atrium was normal in size. Atrial septum: No defect or patent foramen ovale was identified. Right ventricle: The cavity size was normal. Wall thickness was normal. Systolic function was normal. Pulmonic valve: Doppler: There was no evidence for stenosis. There was no significant regurgitation. Tricuspid valve: Doppler: There was mild regurgitation. Pulmonary artery: Poorly visualized. Systolic pressure could not be accurately estimated. Right atrium: The atrium was normal in size. Pericardium: There was no pericardial effusion. Systemic veins: Inferior vena cava: Well visualized. The vessel was patent and normal in size. The respirophasic diameter changes were in the normal range (greater than or equal to 50%), consistent with normal central venous pressure. Baseline ECG: Bradycardia. Measurements Left ventricle Value 08/18/2017 Reference LV ID, ED, PLAX 4.9 cm 5.1 3.5 - 6.0 LV ID, ES, PLAX 2.7 cm 3.3 2.1 - 4.0 LV PW thickness, ED, PLAX 1.4 cm 1.3 LV end-diastolic volume, 85 ml 50 1-p A2C LV ejection fraction, 1-p 72 % A2C LV end-diastolic volume, 65 ml 81 1-p A4C LV ejection fraction, 1-p 70 % 69 A4C LV e', lateral 0.09 m/sec LV E/e', lateral 6 LV e', medial 0.046 m/sec LV E/e', medial 11 LV e', average 0.068 m/sec LV E/e', average 7 Ventricular septum Value 08/18/2017 Reference IVS thickness, ED, PLAX 1.6 cm 1.4 LVOT Value 08/18/2017 Reference LVOT ID, A-P 2.0 cm 2.0 LVOT area 3.2 cm^2 3 LVOT peak velocity, S 1.07 m/sec 1.03 LVOT mean velocity, S 0.82 m/sec LVOT VTI, S 24.8 cm 25.5 LVOT peak gradient, S 4.6 mm Hg LVOT mean gradient, S 3 mm Hg 2.6 Stroke volume (SV), LVOT 79 ml DP Stroke index (SV/bsa), 39 ml/m^2 LVOT DP Aortic valve Value 08/18/2017 Reference Aortic valve peak 4.4 m/sec 4.5 velocity, S Aortic valve mean 3 m/sec 0 velocity, S Aortic valve VTI, S 83.0 cm Aortic mean gradient, S 43.3 mm Hg 41.3 Aortic peak gradient, S 78 mm Hg 81 VTI ratio, LVOT/AV 0.3 0.29 Aortic valve area, VTI 1 cm^2 0.9 Carotid Artery Summary:: Patient Name: CAROLE SANDERS Unit #: [id number] Loc: Ordering Provider: WIN CABRERA NP Status: REG I Primary Care Provider: WIN CABRERA NP Date of Exam: 01/14/14 Sex: M : 1940 Age: 73 Exam(s) [id number] US:Carotid SYMPTOM/DIAGNOSIS: BRUIT, 785.9 CAROTID ULTRASOUND: There is mild intimal thickening bilaterally. Mild to minimal quantity of hard plaque is seen in the bulb and common carotid artery bilaterally. Bilateral antegrade vertebral flow is noted. SUMMARY: No evidence of significant carotid stenosis. Please see the cerebrovascular evaluation and worksheet for the complete results of this study. CC: JONO FIORE MD Dictated By: SISI LOAIZA M.D. [id number] <Electronically signed by SISI LOAIZA M.D.> 01/14/14 5507 Transcribed By: Kendra Clarke 01/14/14 1209 Technologist: Jaimee Soto This is privileged, confidential information intended only for the provider named. Any use or distribution by any person other than this provider is strictly prohibited. If you receive this report in error, please notify us immediately at [phone] and return the original report to us at the address above. Thank-you. Anesthesia Assessment and Plan Anesthesia History Personal History: No History of Anesthesia Complications Family History: No Family History of Anesthesia Complications Exercise Tolerance Exercise Tolerance: Metabolic Equivalents>4 Pertinent Negatives Pertinent Negatives: No Symptoms of GERD, No Major Pulmonary Symptoms or Complaints and No History of CVA/TIA Cardiac & Pulmonary Exam Cardiac Exam: Normal S1/S2 Heart Sounds Pulmonary Exam: Clear Bilateral Breath Sounds Implantable Cardiac Device Does patient have a Pacemaker or an ICD?: No Airway Exam Known Difficult Airway: No Mallampati Class: 2 Mouth Opening: Normal (> 3cm) Thyromental Distance: Greater than 3 cm Neck Range of Motion: Full ROM Neck Circumference: Normal Teeth Condition: Normal Dentition ASA Classification ASA Score: ASA 3 Emergency Case?: No NPO Status NPO Status: NPO Clears >2 hours, Solids >8 hours Anesthesia Plan Resuscitation Status: Full Code Anesthesia Technique: MAC Anesthesia Airway Planned: Natural Airway Monitors Used: Standard Monitors
[2023-12-29 13:18] VITALS: BMI 22.1
[2023-12-29] MEDS: Tetracaine 0.5% 4 ML BTL OS (13:30)
[2023-12-29] MEDS: Povidone-Iodine Ophth 30 ML BTL (13:31)
[2023-12-29] MEDS: Balanced Salt Soln.-PLUS 500 ML BAG OP (13:41)
[2023-12-29] MEDS: Duovisc Viscoelastic System EACH 1 EACH (13:41)
[2023-12-29] MEDS: Lidocaine 1% Pres-Free 5 ML VIAL (13:41)
[2023-12-29 13:58] VITALS: BP 130/74; PULSE 55; RESP 16; TEMP 36; O2SAT 99
--- NOTE | 2023-12-29 13:59 | W.PM.DSUDISC ---
Date of service: 12/29/23 Time of Service: 13:59 Discharge Plan Disposition Patient Disposition: Home Discharge Details Attending Provider: Nelson Peng Primary Care Provider: DAMON GABRIEL Home Meds and New Rx's Prescriptions: No Action ibuprofen [Advil] 200 mg tablet 200 mg PO Q6H PRN clopidogrel [Plavix] 75 mg tablet 75 mg PO DAILY atorvastatin 20 mg tablet 80 mg PO DAILY escitalopram oxalate [Lexapro] 10 mg tablet 10 mg PO DAILY mirtazapine 7.5 mg tablet 7.5 mg PO DAILY tamsulosin [Flomax] 0.4 mg capsule 0.4 mg PO DAILY Qty: 90 3RF aspirin [Aspir-81] 81 MG tablet,delayed release (DR/EC) 81 mg PO BID docusate sodium [Colace] 100 mg Capsule 100 mg PO DAILY losartan 25 mg tablet 50 mg PO DAILY amlodipine 5 mg tablet 5 mg PO DAILY Patient Comments: TAKE ONE TABLET BY MOUTH EVERY DAY metoprolol succinate 50 mg tablet extended release 24 hr 50 mg PO DAILY Patient Comments: TAKE 1 TABLET BY MOUTH DAILY Discharge Instructions Stand Alone Forms: DSU Post-Op CataractNazia (DSU) Discharge Orders Discharge Orders: Discharge Order (Routine); Ordered 12/29/23 Ordered By: Nelson Peng DS: Diagnosis Discharge Diagnosis (1) Cortical age-related cataract, left eye: Status: Resolved (2) Nuclear age-related cataract, left eye: Status: Resolved
--- NOTE | 2023-12-29 14:00 | W.PM.OP ---
Date of service: 12/29/23 Time of Service: 14:00 Operative Note Operative Note DATE OF PROCEDURE: 12/29/23 PRE-OP DIAGNOSIS: Nuclear/cortical cataract, left eye POST-OP DIAGNOSIS: same PROCEDURE: Cataract extraction using phacoemulsification with intraocular lens implant, left eye SURGEON: Nelson Peng ANESTHESIA TYPE: Local By Surgeon and MAC Refer to Anesthesia Record PATHOLOGY: none sent COMPLICATIONS: None Patient was transported to: same day Patient's condition: stable Implants: Gonzalez Clareon [id number] Indications: Progressive decreased vision due to cataract, left eye Procedure Description: CATARACT SURGERY OPERATIVE REPORT PREOPERATIVE DIAGNOSIS: Nuclear/cortical cataract, left eye POSTOPERATIVE DIAGNOSIS: Same OPERATION: Cataract extraction using phacoemulsification with posterior chamber intraocular lens implant, left eye. IOL: IOL Human Resources Support Specialist/Model: Gonzalez Clareon [id number] IOL Power: + 19.5 diopters IOL Serial Number: [id number] Optic Diameter: 6.0mm Haptic/Overall Diameter: 13.0mm PHACO INFO: [employer]like Live Chaturion Vision System with OZil and Active Fluidics Cumulative Dispersed Energy (CDE): 7.90 seconds SURGEON: Nelson Peng MD, EMIL ANESTHESIA: Monitored Anesthesia Care (MAC), with local sub-tenon's anesthetic infiltration COMPLICATIONS: None SPECIMENS: None INDICATIONS FOR PROCEDURE: The patient is an 83-year-old male with history of diminished visual acuity in left eye secondary to the development of significant nuclear/cortical cataract. He is significantly symptomatic that he desires cataract surgery and attempt to improve and maximize his vision. The option of cataract surgery was offered to the patient and he wished to proceed. See office notes for detailed information. PROCEDURE: The correct surgical eye was identified and marked as the left eye and the pupil was dilated in the preoperative area using mydriatics and cycloplegics. The dilated pupil size was 6.0 mm. The patient elected to proceed without oral sedation. The patient was brought to the operating room where cardiopulmonary monitoring was instituted and surgical time-out was performed, confirming the correct operative eye and IOL power. Topical anesthesia was administered and ophthalmic povidone-iodine 5% was instilled into the conjunctival fornices. The jose-ocular area was prepped with Betadine 10% solution and draped in the usual sterile fashion for intraocular surgery, including an aperture drape. A Tegaderm transparent film dressing was cut in half and used to cover the lashes and lid margins. Care was taken to sequester the lashes and lid margins under the Tegaderm dressing. A lid speculum was placed between the lids of the operative eye and the Gonzalez LuxOR Revalia operating microscope was maneuvered into position. Cuco scissors were then used to make a conjunctival buttonhole approximately 6mm posterior to the limbus in the inferonasal quadrant. Blunt dissection was carried out to expose bare sclera, and a blunt-tipped sub-tenon?s anesthesia cannula was introduced and passed posteriorly along the globe where non-preserved plain lidocaine was injected into posterior sub-Tenon?s space. A sideport knife was used to make a paracentesis port. Intraocular phenylephrine/lidocaine was injected into the anterior chamber. The anterior chamber was then filled with viscoelastic. A keratome knife was used construct a two-plane clear corneal tunnel extending 2.0mm into clear cornea. A flap was raised on the anterior capsule and capsulorhexis forceps were used to complete a continuous curvilinear capsulorhexis of 5.5 mm. Balanced salt solution was then used to perform cortical cleaving hydrodissection and nuclear hydrodelineation until the lens could be freely rotated within the capsular bag. The lens nucleus was then disassembled and removed within the capsular bag and iris plane using phacoemulsification. Residual cortical material was removed using the irrigation/aspiration handpiece. The posterior capsule was carefully polished to remove as much residual lens epithelial cells as safely possible. The capsular bag was then inflated and the anterior chamber deepened with viscoelastic. The lens implant described above was inserted into the capsular bag using the Gonzalez Autonome Injector. A Kuglen hook was used to dial the IOL into position. Residual viscoelastic was then removed first from posterior to the IOL, then from the anterior chamber using the I/A handpiece. The lens implant was noted to center nicely within the capsular bag. The incisions were stromally hydrated, and the anterior chamber was reformed using BSS. Then 0.5cc of moxifloxacin 1.0mg/ml were injected into the capsular bag and anterior chamber. The incisions were checked with a Weck spear and found to be secure. Several drops of ophthalmic povidone-iodine 5% were then applied to the eye followed by two drops of combination steroid/NSAID/antibiotic solution. The drapes were removed and a clear plastic protective eye shield was placed over the eye. The patient was then returned to Same Day Surgery in stable condition.
--- NOTE | 2023-12-29 14:19 | W.ANESPOSTOP ---
Postoperative Evaluation Date, Time and Location Date Performed: 12/29/23 Time Performed: 14:00 Patient Location: Day Surgery Unit Vital Signs Most Recent Imported Vital Signs: Most Recent Vital Signs Temp Pulse Resp BP Pulse Ox 36 C L 55 L 16 130/74 99 12/29/23 13:58 12/29/23 13:58 12/29/23 13:58 12/29/23 13:58 12/29/23 13:58 Pain Score Most Recent Pain Score: Most Recent Pain Score Pain Level 0 12/29/23 13:58 Assessment Mental Status: Awake (Alert & Oriented to Patient Baseline) Airway and Respiratory Function: Patent airway with normal (patient baseline) respiratory exam Cardiovascular Function: Hemodynamically Stable Hydration Status: Adequately Hydrated Nausea & Vomiting: No Nausea or Vomiting Pain: Pt. Denies Any Pain Peripheral Nerve Block: Other (Local by Dr. Peng)
== END 2023-12-29 14:39 | disposition home or self-care (01) ==
LOC: SUR 11:25
PROVIDERS: PCP Nurse Practitioner Family; Visit Provider Ophthalmology
PROC: (CPT 66984; principal; 2023-12-29 13:45)
DX: H25.012 Cortical age-related cataract, left eye (principal); H25.12 Age-related nuclear cataract, left eye; I25.10 Atherosclerotic heart disease of native coronary artery without angina pectoris
CPT/HCPCS: 66984; 00123; V2632; J2003

== ENCOUNTER 2024-01-19 06:48 | Day surgery (SDC) | payer MEDICARE, MEDICAID, SELFPAY ==
--- NOTE | 2024-01-19 07:12 | W.PREOPHP ---
Assessment and Plan Assessment and plan (1) Cortical age-related cataract, right eye: Status: Chronic Assessment and plan: Assessment: visually significant cataract right eye. Plan: cataract extraction with lens implant right eye (2) Nuclear age-related cataract, right eye: Status: Chronic Assessment and plan: Assessment: visually significant cataract right eye. Plan: cataract extraction with lens implant right eye History of Present Illness History of Present Illness Chief Complaint: Progressive decreased vision right eye Narrative: Progresive decreased vision right eye due to cataract. Has already had cataract surgery OS and is doing well. Review of Systems All systems reviewed & are unremarkable except as noted in HPI and below PFSH All Active Problems (Updated 01/19/24 @ 08:32 by Nelson Peng MD) Cortical age-related cataract, right eye (Chronic) Nuclear age-related cataract, right eye (Chronic) Acute non-ST elevation myocardial infarction (NSTEMI) (Acute) ASCVD (arteriosclerotic cardiovascular disease) (Acute) Abnormal stress echo (Acute) Constipation (Acute ~05/2017) H/O aortic valve replacement (Acute) DVT prophylaxis (Acute) Palpitations (Acute) Coronary artery disease (Chronic) Chest pain (Acute) Aortic stenosis (Chronic) Medical History Urinary hesitancy Abrasion, corneal Normal colonoscopy Lower urinary tract symptoms GERD (gastroesophageal reflux disease) Chest discomfort Hyperlipidemia Dysphagia Anxiety disorder History of tobacco use ED (erectile dysfunction) of organic origin Sleep disturbance Low back pain Surgical History History of colonoscopy S/P TURP TURP then ~10 yrs later green laser therapy. Both procedures done at facility in [place] H/O aortic valve replacement S/P CABG (coronary artery bypass graft) Social History Smoking/Tobacco Use Status: Former Tobacco Use Quit Date: 07/03/84 Tobacco: How many years used: 15 Smokeless tobacco user: other Smoking risk assessment performed?: Yes Alcohol Intake: former Year quit: 1979 Drug use: Never Substance use type: does not use Housing: house What type of physical activity do you participate in: walking and resistance training Frequency: 3-4 times per week Do you feel safe at home: Yes Do you feel safe in your relationship?: Yes Meds Allergies and Home Medications Allergies Allergy/AdvReac Type Severity Reaction Status Date / Time iodine Allergy Severe Other (See Verified 01/19/24 07:53 Comment) simvastatin AdvReac Intermediate upset Verified 01/17/24 14:48 stomach Home Medications ?Medication ?Instructions ?Recorded ?Confirmed ?Type aspirin 81 mg tablet,delayed 81 mg PO BID 09/18/13 01/19/24 History release (Aspir-) ibuprofen 200 mg tablet (Advil) 200 mg PO Q6H PRN 11/16/21 01/19/24 History atorvastatin 20 mg tablet 80 mg PO DAILY 05/31/22 01/19/24 History clopidogrel 75 mg tablet (Plavix) 75 mg PO DAILY 05/31/22 01/19/24 History docusate sodium 100 mg capsule 100 mg PO DAILY 02/12/23 01/19/24 History (Colace) escitalopram oxalate 10 mg tablet 10 mg PO DAILY 05/15/23 01/19/24 History (Lexapro) losartan 25 mg tablet 50 mg PO DAILY 05/15/23 01/19/24 History mirtazapine 7.5 mg tablet 7.5 mg PO DAILY 05/15/23 01/19/24 History tamsulosin 0.4 mg capsule (Flomax) 0.4 mg PO DAILY #90 caps 05/15/23 01/19/24 Rx amlodipine 5 mg tablet 5 mg PO DAILY 12/28/23 01/19/24 History metoprolol succinate 50 mg 50 mg PO DAILY 12/29/23 01/19/24 History tablet,extended release 24 hr Exam Eyes Other: Cataract OD, see office notes for detailed information Cardio Rate: regular rate Rhythm: regular rhythm
[2024-01-19 07:48] VITALS: BP 157/76; PULSE 52; RESP 16; TEMP 36.5; O2SAT 97
--- NOTE | 2024-01-19 08:03 | ANES.PREOP_ITS ---
General Info Date of Service Date Performed: 01/19/24 Height: 6 ft Weight: 75.7 kg Body Mass Index (BMI): 22.6 Surgical Procedure: Operation Date: 01/19/24 09:10 Proposed Procedure Side Surgeon p Cataract Extraction with IOL Implant Right Nelson Peng MD Meds Allergies and Home Medications Allergies Allergy/AdvReac Type Severity Reaction Status Date / Time iodine Allergy Severe Other (See Verified 01/19/24 07:53 Comment) simvastatin AdvReac Intermediate upset Verified 01/17/24 14:48 stomach Home Medication ?Medication ?Instructions ?Recorded aspirin 81 mg tablet,delayed 81 mg PO BID 09/18/13 release (Aspir-) ibuprofen 200 mg tablet (Advil) 200 mg PO Q6H PRN 11/16/21 atorvastatin 20 mg tablet 80 mg PO DAILY 05/31/22 clopidogrel 75 mg tablet (Plavix) 75 mg PO DAILY 05/31/22 docusate sodium 100 mg capsule 100 mg PO DAILY 02/12/23 (Colace) escitalopram oxalate 10 mg tablet 10 mg PO DAILY 05/15/23 (Lexapro) losartan 25 mg tablet 50 mg PO DAILY 05/15/23 mirtazapine 7.5 mg tablet 7.5 mg PO DAILY 05/15/23 tamsulosin 0.4 mg capsule (Flomax) 0.4 mg PO DAILY #90 caps 05/15/23 amlodipine 5 mg tablet 5 mg PO DAILY 12/28/23 metoprolol succinate 50 mg 50 mg PO DAILY 12/29/23 tablet,extended release 24 hr Current Visit Medications: Current Medications Generic Name Dose Route Start Last Admin Trade Name Freq PRN Reason Stop Dose Admin Acetaminophen 1,000 mg 01/19/24 06:00 Acetaminophen 500 Mg Tab PO 02/18/24 05:59 Q4H PRN PRN Balanced Salt Solution 500 ml 01/19/24 06:00 Balanced Salt Soln.-Plus 500 Ml Bag OP 02/18/24 05:59 DIRECTED MARI Miscellaneous Medication 0 ml 01/19/24 06:00 Prednisolone 1%, Moxifloxacin 0.5%, Bromfenac 0.09% 5ml Btl OD 02/18/24 05:59 DIRECTED MARI Miscellaneous Medication 0 ml 01/19/24 06:00 01/19/24 07:58 Tropicam./Phenyleph. (1/2.5%) 10 Ml Btl OD 02/18/24 05:59 1 drp DIRECTED MARI Administration Tetracaine HCl 0 ml 01/19/24 06:00 Tetracaine 0.5% 4 Ml Btl OD 02/18/24 05:59 DIRECTED MARI PFSH Active Problems Active Problems: Problem Status Onset Code Cortical age-related cataract, right eye Acute H25.011 Nuclear age-related cataract, right eye Acute H25.11 Cortical age-related cataract, left eye Resolved H25.012 Nuclear age-related cataract, left eye Resolved H25.12 Acute non-ST elevation myocardial infarction (NSTEMI) Acute I21.4 ASCVD (arteriosclerotic cardiovascular disease) Acute I25.10 Abnormal stress echo Acute R94.39 Constipation Acute ~05/2017 H/O aortic valve replacement Acute Z95.2 DVT prophylaxis Acute Z29.9 Palpitations Acute R00.2 Coronary artery disease Chronic I25.10 Chest pain Acute R07.9 Aortic stenosis Chronic I35.0 Medical History Medical History Urinary hesitancy Abrasion, corneal Normal colonoscopy Lower urinary tract symptoms GERD (gastroesophageal reflux disease) Chest discomfort Hyperlipidemia Dysphagia Anxiety disorder History of tobacco use ED (erectile dysfunction) of organic origin Sleep disturbance Low back pain Surgical History Surgical History History of colonoscopy S/P TURP TURP then ~10 yrs later green laser therapy. Both procedures done at facility in [place] H/O aortic valve replacement S/P CABG (coronary artery bypass graft) Tobacco Smoking/Tobacco Use Status: Former Tobacco Use Smokeless tobacco user: other Alcohol Alcohol Intake: former Year quit: 1979 Substance Use Substance use: Never Substance use type: does not use Vital Signs and Lab Results Vital Signs Most Recent Vital Signs in EMR: Most Recent Vital Signs Temp Pulse Resp BP Pulse Ox 36.5 C 52 L 16 157/76 H 97 01/19/24 07:48 01/19/24 07:48 01/19/24 07:48 01/19/24 07:48 01/19/24 07:48 Lab Results Blood Type / Crossmatch: No Data to Display Complete Blood Count: No Data to Display Complete Metabolic Panel: No Data to Display Liver Function Panel: No Data to Display Coagulation Panel: No Data to Display Cardiac Panel: No Data to Display Arterial Blood Gas: No Data to Display Venous Blood Gas: No Data to Display Pancreas Panel: No Data to Display Thyroid Panel: No Data to Display Infectious Disease: No Data to Display Blood Cultures: No Data to Display Toxicology Panel: No Data to Display Imaging and Studies Imaging and Studies Study information below may be from another EMR and interpreted by another provider. Please see original notes in EMR for more complete details. EKG Summary: EKG PATIENT NAME: Carole Sanders UNIT #: [id number] ORDERING PROVIDER: Dasha Walden CRNA PRIMARY CARE PROVIDER: DAMON GABRIEL NP DATE/TIME OF SERVICE: 12/29/23 1106 : 1940 PERFORMING LOCATION: [facility] APPROVED REPORT Exam: Resting ECG Reason for Exam: PRE OP Patient Location: O HR:56 bpm ECG Measurements Heart Rate 56 AXIS NC 169 P 66 QRSd 93 QRS -51 QT 429 T82 QTc 414 Conclusion Sinus bradycardia...rate< 60 Left anterior fascicular block.. Atrial premature beat Left ventricular hypertrophy with repolarization abnormalities <Electronically signed by KENDRA DARLING MD in OV> E-Sign Date: 12/29/23 E-Sign Time: 1218 Stress Test Summary: Patient Name: CAROLE SANDERS Unit #: [id number] Loc: MS Ordering Provider: Landon Vaca M.D. Status: DIS IN Primary Care Provider: Anahi Gregorio Date of Exam: 02/08/19 Sex: M : 1940 Age: 78 Exam(s) a NM:NM MPI rest & stress grp *[facility]* *[facility]* [address] [place] [address] Myocardial Perfusion Imaging - SPECT Jose R protocol Date of study: 02/08/2019 *PATIENT PRESENTATION* Height: 180.3cm (71in) Blood Pressure: Weight: 78.6kg (173lb) BSA: 1.99m^2 Referring physician: Jan Bai MD Ordering physician: Landon Vaca Impressions: - Normal perfusion by Tc99m Sestamibi Imaging. - By visual estimation LV function appears normal. Summary: 1. Myocardial perfusion imaging: No myocardial perfusion defects noted. 2. The calculated left ventricular ejection fraction after stress: 48%. LV global systolic function is mildly reduced. Diffuse left ventricular regional motion abnormalities. Indication: R07.9. History: REASON FOR TESTING:FOR THE PAST MONTH, PT HAS BEEN EXPERIENCING CHEST TIGHTNESS, DIZZINESS, AND PALPITATIONS. THESE HAVE BEEN PROGESSIVELY WORSE OVER TIME. PMH:AORTIC VALVE STENOSIS WITH REPALCEMENT, CAD WITH CABG OF LAD AND PDA, WITH PROGRESSION OF DISEASE ON HEART CATH IN 2011, ANXIETY, CONSTIPATION, DYSPHAGIA, ED, GERD,HYPERLIPIDEMIA, LOW BACK PAIN, FAMILY:FATHER- CAD, AORTIC ANURYSM. MOTHER- CAD, HEART FAILURE. SMOKING: QUIT 1983, SMOKED 1PPD X 37 YEARS. EXCERCISE: NO REGULAR EXCERCISE. Risk factors: Family history of coronary artery disease. Cholesterol: 190mg/dl. HDL: 53mg/dl. LDL: 128mg/dl. Triglycerides: 101mg/dl. ALLERGIES: IODINE HOME MEDICATIONS: PEPPERMINT OIL 90 MG BID, CLORAZEPATE DIPOTASSIUM 3.5 MG HS NEEDED, ASPIRIN 81 MG BID. SEE INPATIENT MEDICATIONS. Imaging Technique: Protocol: Jose R protocol. Acquisition: Gated SPECT; 1 day - rest/stress. The patient was imaged in the supine position. Attenuation correction used. Isotope administration: - Rest. Tc[99m]-sestamibi. Dose: 10.1mCi. Injection time: 11:30 AM. Injection to stress time: 00:45. - Stress. Tc[99m]-sestamibi. Dose: 32mCi. Injection time: 01:45 PM. 1-2 min before end of exercise Baseline ECG: LAST EKG 02/06/19-SINUS RHYTHM, NONSPECIFIC ST DEPRESSION, T-ABNORMALITY. POSSIBLE ANTEROLATERAL ISCHEMIA. TODAY'S EKG-SINUS BRADYCARDIA, HR 58. Stress protocol: + +---+ +---+ !Stage !HR !BP (mmHg) !Sat! + +---+ +---+ !Baseline supine !58 !170/86 (114)!---! + +---+ +---+ !Baseline standing !69 !168/80 (109)!95%! + +---+ +---+ !Stage I; 1.7mph, 10degrees; 3 min !103!170/82 (111)!95%! + +---+ +---+ !Stage II; 2.5mph, 12degrees; 3 min!104!178/92 (121)!---! + +---+ +---+ !Recovery; 1 min !105!180/78 (112)!---! + +---+ +---+ !Recovery; 3 min !80 !178/82 (114)!---! + +---+ +---+ !Recovery; 6 min !77 !168/82 (111)!---! + +---+ +---+ * Stress results: The rate-pressure product for the peak heart rate and blood pressure was 37627mr Hg/min. Stress ECG: EXCERCISE TESTING ENDED IN 8 MINS, 39 SECS DUE TO FATIGUE. MAX HR WAS 122, 85% OF TARGET. HYPERTENSIVE AT BASELINE, WITH A NORMAL BLOOD PRESSURE RESPONSE. METS: 10.16 ECTOPY:FREQUENT PVCS, WITH TRIGEMINY OF PVC'S NOTED AFTER 3 MINS OF EXCERCISE. ANGINA: NO REPORTED CHEST PAIN OR PRESSURE. ISCHEMIA: NO ISCHEMIC CHANGES NOTED. FUNCTIONAL CAPACITY: ABOVE AVERAGE CAPACITY. NOTE-PATIENT ARRIVED WITHOUT SHOES, ONLY HOSPITAL SOCKS. HE FELT UNSURE OF HIS FOOTING WITHOUT SHOES, AND THEREFORE DID NOT EXCERCISE LONG HE FELT HE COULD HAVE. Myocardial perfusion: Imaging information: gated. No myocardial perfusion defects noted. Ventricular Function (Wall Motion): The calculated left ventricular ejection fraction after stress: 48%. LV global systolic function is mildly reduced. Diffuse left ventricular regional motion abnormalities. Study data: Cassy Lafleur MD supervised and was readily available during the procedure. This study was interpreted by [facility]. Study status: Routine. Consent: The risks, benefits, and alternatives to the procedure were explained to the patient and informed consent was obtained. Procedure: Initial setup. A baseline ECG was recorded. Surface ECG leads and manual cuff blood pressure measurements were monitored. Heart sounds: Normal. Lung sounds: Normal. Treadmill exercise testing was performed using the Jose R protocol. Study completion: All catheters inserted during the procedure were removed. The patient tolerated the procedure well and was discharged from the lab. Discharge: The patient left the laboratory in stable condition. Birthdate: Patient birthdate: 1940. Sex: Gender: male. Study date: Study date: 02/08/2019. Study time: 00:01 AM. Signature Documentation: - The imaging portion of this study was interpreted by Nuclear Rn Mds Coordinator Denice Pang MD. - The imaging portion of this study was interpreted by Nuclear Radiologist Gus Santos MD. - The Stress ECG portion of this study was interpreted by Denice Pang MD. Electronically signed by Denice Pang 02/08/2019 15:28 Ordering provider: Landon Vaca M.D. CC: Dictated by: Gus Santos M.D.02/08/19 1430 <Electronically signed by Gsu Santos M.D.>02/11/19 4144 Disclaimer: The [facility] radiologist is signing only the Nuclear Medicine MPI Imaging exam portion of the report. Transcribed by: Yamilka Beckman02/10/19 1042 This is privileged, confidential information intended only for the provider named. Any use or distribution by any person other than this provider is strictly prohibited. If you receive this report in error, please notify us i mmediately at [phone] and return the original report to us at the address above. Thank-you. Echocardiogram Summary: Patient Name: CAROLE SANDERS Unit #: [id number] Loc: MS Ordering Provider: DimpleRobert Status: ADM IN Primary Care Provider: Anahi Gregorio Date of Exam: 02/07/19 Sex: M : 1940 Age: 78 Exam(s) a US:US echocardiogram *[facility]* *[facility]* [address] [place] [address] Date of study: 02/07/2019 Transthoracic Echocardiography M-mode, complete 2D, complete spectral Doppler, and color Doppler *STUDY CONCLUSIONS* Impressions: Very similar bioprosthetic aortic valve echo hemodynamic parameters compared to 2018 study. Summary: 1. Left ventricle: The cavity size was normal. Wall thickness was increased in a pattern of severe LVH. Systolic function was hyperdynamic. The estimated ejection fraction was 65-70%. Diastolic parameters were normal for age. There was no evidence of elevated ventricular filling pressure by Doppler parameters. 2. Aortic valve: A bioprosthesis was present and functioning abnormally, moderately stenotic. The sewing ring appeared normal. Peak velocity (S): 4.4m/sec. Mean gradient (S): 43.3mm Hg. VTI ratio of LVOT to aortic valve: 0.3. Acceleration time <100 ms. Indexed valve area (Vmean): 0.4cm^2/m^2, suggesting severe patient -prosthesis mismatch. 3. Mitral valve: There was mild regurgitation. Valve area by pressure half-time: 1.8cm^2. 4. Right ventricle: The cavity size was normal. Wall thickness was normal. Systolic function was normal. 5. Atrial septum: No defect or patent foramen ovale was identified. 6. Pulmonary arteries: Systolic pressure could not be accurately estimated. 7. Inferior vena cava: The vessel was patent and normal in size. The respirophasic diameter changes were in the normal range (greater than or equal to 50%), consistent with normal central venous pressure. *PATIENT PRESENTATION* Height: 180.3cm (71in ) S/D Pressure: 163 / 75 Weight: 83kg (182.6lb ) BSA: 2.05m^2 Test start time: 12:40 PM. Test stop time: 01:45 PM. PERFORMING Unknown PERFORMING [facility] CONSULTING [facility] ORDERING [facility] REFERRING [facility] HEALTH SCIENCE SPECIALIST Sharmila Almanzar, RT (R)(CT), [facility] *PROCEDURE DATA* Procedure information: The patient was identified by two identifiers. This study was interpreted by [facility]. Pertinent images and digital data are archived for permanent storage and are available for subsequent review. Comparison was made to the study of 08/18/2017. Study status: Routine. Transthoracic echocardiography. M-mode, complete 2D, complete spectral Doppler, and color Doppler. A Transthoracic Echocardiogram was performed. Scanning was performed from the parasternal, apical, subcostal, and suprasternal notch acoustic windows. Images were obtained using an [id number] cardiac ultrasound machine. Image quality was good. Study completion: The patient tolerated the procedure well. History: PMH: Aortic stenosis. *CARDIAC ANATOMY* Left ventricle: The cavity size was normal. Wall thickness was increased in a pattern of severe LVH. Systolic function was hyperdynamic. The estimated ejection fraction was 65-70%. The tissue Doppler parameters were abnormal. Diastolic parameters were normal for age. There was no evidence of elevated ventricular filling pressure by Doppler parameters. Aortic valve: A bioprosthesis was present and functioning abnormally. The sewing ring appeared normal. Doppler: There was no regurgitation. VTI ratio of LVOT to aortic valve: 0.3. Valve area (VTI): 1cm^2. Indexed valve area (VTI): 0.5cm^2/m^2. Peak velocity ratio of LVOT to aortic valve: 0.24. Valve area (Vmax): 0.8cm^2. Indexed valve area (Vmax): 0.4cm^2/m^2. Mean velocity ratio of LVOT to aortic valve: 0.27. Valve area (Vmean): 0.9cm^2. Indexed valve area (Vmean): 0.4cm^2/m^2, suggesting severe patient -prosthesis mismatch. Mean gradient (S): 43.3mm Hg. Peak gradient (S): 78mm Hg. Aorta: Aortic root: The aortic root was normal in size. Ascending aorta: The ascending aorta was mildly dilated. Mitral valve: Doppler: There was no evidence for stenosis. There was mild regurgitation. Valve area by pressure half-time: 1.8cm^2. Indexed valve area by pressure half-time: 0.9cm^2/m^2. Left atrium: The atrium was normal in size. Atrial septum: No defect or patent foramen ovale was identified. Right ventricle: The cavity size was normal. Wall thickness was normal. Systolic function was normal. Pulmonic valve: Doppler: There was no evidence for stenosis. There was no significant regurgitation. Tricuspid valve: Doppler: There was mild regurgitation. Pulmonary artery: Poorly visualized. Systolic pressure could not be accurately estimated. Right atrium: The atrium was normal in size. Pericardium: There was no pericardial effusion. Systemic veins: Inferior vena cava: Well visualized. The vessel was patent and normal in size. The respirophasic diameter changes were in the normal range (greater than or equal to 50%), consistent with normal central venous pressure. Baseline ECG: Bradycardia. Measurements Left ventricle Value 08/18/2017 Reference LV ID, ED, PLAX 4.9 cm 5.1 3.5 - 6.0 LV ID, ES, PLAX 2.7 cm 3.3 2.1 - 4.0 LV PW thickness, ED, PLAX 1.4 cm 1.3 LV end-diastolic volume, 85 ml 50 1-p A2C LV ejection fraction, 1-p 72 % A2C LV end-diastolic volume, 65 ml 81 1-p A4C LV ejection fraction, 1-p 70 % 69 A4C LV e', lateral 0.09 m/sec LV E/e', lateral 6 LV e', medial 0.046 m/sec LV E/e', medial 11 LV e', average 0.068 m/sec LV E/e', average 7 Ventricular septum Value 08/18/2017 Reference IVS thickness, ED, PLAX 1.6 cm 1.4 LVOT Value 08/18/2017 Reference LVOT ID, A-P 2.0 cm 2.0 LVOT area 3.2 cm^2 3 LVOT peak velocity, S 1.07 m/sec 1.03 LVOT mean velocity, S 0.82 m/sec LVOT VTI, S 24.8 cm 25.5 LVOT peak gradient, S 4.6 mm Hg LVOT mean gradient, S 3 mm Hg 2.6 Stroke volume (SV), LVOT 79 ml DP Stroke index (SV/bsa), 39 ml/m^2 LVOT DP Aortic valve Value 08/18/2017 Reference Aortic valve peak 4.4 m/sec 4.5 velocity, S Aortic valve mean 3 m/sec 0 velocity, S Aortic valve VTI, S 83.0 cm Aortic mean gradient, S 43.3 mm Hg 41.3 Aortic peak gradient, S 78 mm Hg 81 VTI ratio, LVOT/AV 0.3 0.29 Aortic valve area, VTI 1 cm^2 0.9 Carotid Artery Summary:: Patient Name: CAROLE SANDERS Unit #: [id number] Loc: DI Ordering Provider: WIN CABRERA INJECTOR ASSEMBLER Status: REG I Primary Care Provider: WIN CABRERA NP Date of Exam: 01/14/14 Sex: M : 1940 Age: 73 Exam(s) [id number] US:Carotid SYMPTOM/DIAGNOSIS: BRUIT, 785.9 CAROTID ULTRASOUND: There is mild intimal thickening bilaterally. Mild to minimal quantity of hard plaque is seen in the bulb and common carotid artery bilaterally. Bilateral antegrade vertebral flow is noted. SUMMARY: No evidence of significant carotid stenosis. Please see the cerebrovascular evaluation and worksheet for the complete results of this study. CC: JNOO FIORE MD Dictated By: SISI LOAIZA M.D. <Electronically signed by SISI LOAIZA M.D.> 01/14/14 7334 Transcribed By: Kendra Clarke 01/14/14 1201 Technologist: Jaimee Soto This is privileged, confidential information intended only for the provider named. Any use or distribution by any person other than this provider is strictly prohibited. If you receive this report in error, please notify us immediately at [phone] and return the original report to us at the address above. Thank-you. Anesthesia Assessment and Plan Anesthesia History Personal History: No History of Anesthesia Complications Family History: No Family History of Anesthesia Complications Exercise Tolerance Exercise Tolerance: Metabolic Equivalents>4 Cardiac & Pulmonary Exam Cardiac Exam: Normal S1/S2 Heart Sounds Pulmonary Exam: Clear Bilateral Breath Sounds Implantable Cardiac Device Does patient have a Pacemaker or an ICD?: No Airway Exam Known Difficult Airway: No Mallampati Class: 2 Mouth Opening: Normal (> 3cm) Thyromental Distance: Greater than 3 cm Neck Range of Motion: Full ROM Neck Circumference: Normal Teeth Condition: Normal Dentition ASA Classification ASA Score: ASA 3 Emergency Case?: No NPO Status NPO Status: NPO Clears >2 hours, Solids >8 hours Anesthesia Plan Resuscitation Status: Full Code Anesthesia Technique: MAC Anesthesia Airway Planned: Natural Airway Monitors Used: Standard Monitors
[2024-01-19 08:27] VITALS: BMI 22.6
[2024-01-19] MEDS: Lidocaine 1% Pres-Free 5 ML VIAL (08:53)
[2024-01-19] MEDS: Tetracaine 0.5% 4 ML BTL OD (08:53)
[2024-01-19] MEDS: Balanced Salt Soln.-PLUS 500 ML BAG OP (08:59)
[2024-01-19] MEDS: Povidone-Iodine Ophth 30 ML BTL (08:59)
[2024-01-19] MEDS: Duovisc Viscoelastic System EACH 1 EACH (09:01)
[2024-01-19 09:20] VITALS: BP 146/66; PULSE 55; RESP 18; TEMP 36.2; O2SAT 98
--- NOTE | 2024-01-19 09:21 | ROE_ITS ---
Date of service: 01/19/24 Time of Service: 09:21 Operative Note Operative Note DATE OF PROCEDURE: 01/19/24 PRE-OP DIAGNOSIS: Nuclear/cortical cataract, right eye POST-OP DIAGNOSIS: same PROCEDURE: Cataract extraction using phacoemulsification with intraocular lens implant, right eye SURGEON: Nelson Peng ANESTHESIA TYPE: Local By Surgeon and MAC Refer to Anesthesia Record ESTIMATED BLOOD LOSS: 0 PATHOLOGY: none sent COMPLICATIONS: None Patient was transported to: same day Patient's condition: stable Implants: Gonzalez Clareon [id number] Indications: Progressive decreased vision due to cataract, right eye Procedure Description: CATARACT SURGERY OPERATIVE REPORT PREOPERATIVE DIAGNOSIS: Nuclear/cortical cataract, right eye POSTOPERATIVE DIAGNOSIS: Same OPERATION: Cataract extraction using phacoemulsification with posterior chamber intraocular lens implant, right eye. IOL: IOL Belt Machine Operator/Model: Gonzalez Clareon [id number] IOL Power: + 19.0 diopters IOL Serial Number: [id number] Optic Diameter: 6.0mm Haptic/Overall Diameter: 13.0mm PHACO INFO: GonzalezMirage Innovationsurion Vision System with OZil and Active Fluidics Cumulative Dispersed Energy (CDE): 8.44 seconds SURGEON: Nelson Peng MD, EMIL ANESTHESIA: Monitored Anesthesia Care (MAC), with local sub-tenon's anesthetic infiltration COMPLICATIONS: None SPECIMENS: None INDICATIONS FOR PROCEDURE: The patient is a 83-year-old male with history of diminished visual acuity in both eyes secondary to the development of bilateral nuclear/cortical cataract. He has already undergone cataract surgery in the left eye and is doing well postoperatively. He now presents for cataract surgery in the right eye. See office notes for detailed information. PROCEDURE: The correct surgical eye was identified and marked as the right eye and the pupil was dilated in the preoperative area using mydriatics and cycloplegics. The dilated pupil size was 6.0 mm. The patient elected to proceed without oral sedation. The patient was brought to the operating room where cardiopulmonary monitoring was instituted and surgical time-out was performed, confirming the correct operative eye and IOL power. Topical anesthesia was administered and ophthalmic povidone-iodine 5% was instilled into the conjunctival fornices. The jose-ocular area was prepped with Betadine 10% solution and draped in the usual sterile fashion for intraocular surgery, including an aperture drape. A Tegaderm transparent film dressing was cut in half and used to cover the lashes and lid margins. Care was taken to sequester the lashes and lid margins under the Tegaderm dressing. A lid speculum was placed between the lids of the operative eye and the Gonzalez LuxOR Revalia operating microscope was maneuvered into position. Cuco scissors were then used to make a conjunctival buttonhole approximately 6mm posterior to the limbus in the inferonasal quadrant. Blunt dissection was carried out to expose bare sclera, and a blunt-tipped sub-tenon?s anesthesia cannula was introduced and passed posteriorly along the globe where non- preserved plain lidocaine was injected into posterior sub-Tenon?s space. A sideport knife was used to make a paracentesis port. Intraocular phenylephrine/lidocaine was injected into the anterior chamber. The anterior chamber was then filled with viscoelastic. A keratome knife was used to construct a two--plane clear corneal tunnel extending 2.0mm into clear cornea. A flap was raised on the anterior capsule and capsulorhexis forceps were used to complete a continuous curvilinear capsulorhexis of 5.0 mm. Balanced salt solution was then used to perform cortical cleaving hydrodissection and nuclear hydrodelineation until the lens could be freely rotated within the capsular bag. The lens nucleus was then disassembled and removed within the capsular bag and iris plane using phacoemulsification. Residual cortical material was removed using the I/A handpiece. The posterior capsule was carefully polished to remove as much residual lens epithelial cells as safely possible. The capsular bag was then inflated and the anterior chamber deepened with cohesive viscoelastic. The lens implant described above was inserted into the capsular bag using the Gonzalez Autonome Injector. A Kuglen hook was used to dial the IOL into position. Residual viscoelastic was then removed first from posterior to the IOL, then from the anterior chamber using the I/A handpiece. The lens implant was noted to center nicely within the capsular bag. The incisions were stromally hydrated, and the anterior chamber was reformed using BSS. Then 0.5cc of moxifloxacin 1.0mg/ml were injected into the capsular bag and anterior chamber. The incisions were checked with a Weck spear and found to be secure. Several drops of ophthalmic povidone-iodine 5% were then applied to the eye followed by two drops of combination steroid/NSAID/antibiotic solution. The drapes were removed and a clear plastic protective eye shield was placed over the eye. The patient was then returned to Same Day Surgery in stable condition.
--- NOTE | 2024-01-19 09:21 | W.PM.DSUDISC ---
Date of service: 01/19/24 Time of Service: 09:21 Discharge Plan Disposition Patient Disposition: Home Discharge Details Attending Provider: Nelson Peng Primary Care Provider: DAMON GABRIEL Home Meds and New Rx's Prescriptions: No Action ibuprofen [Advil] 200 mg tablet 200 mg PO Q6H PRN clopidogrel [Plavix] 75 mg tablet 75 mg PO DAILY atorvastatin 20 mg tablet 80 mg PO DAILY escitalopram oxalate [Lexapro] 10 mg tablet 10 mg PO DAILY mirtazapine 7.5 mg tablet 7.5 mg PO DAILY tamsulosin [Flomax] 0.4 mg capsule 0.4 mg PO DAILY Qty: 90 3RF aspirin [Aspir-81] 81 MG tablet,delayed release (DR/EC) 81 mg PO BID docusate sodium [Colace] 100 mg Capsule 100 mg PO DAILY losartan 25 mg tablet 50 mg PO DAILY amlodipine 5 mg tablet 5 mg PO DAILY Patient Comments: TAKE ONE TABLET BY MOUTH EVERY DAY metoprolol succinate 50 mg tablet extended release 24 hr 50 mg PO DAILY Patient Comments: TAKE 1 TABLET BY MOUTH DAILY Discharge Instructions Stand Alone Forms: [facility] Post-Op CataractNazia (DSU) Discharge Orders Discharge Orders: Discharge Order (Routine); Ordered 01/19/24 Ordered By: Nelson Peng DS: Diagnosis Discharge Diagnosis (1) Cortical age-related cataract, right eye: Status: Resolved (2) Nuclear age-related cataract, right eye: Status: Resolved
--- NOTE | 2024-01-19 09:40 | W.ANESPOSTOP ---
Postoperative Evaluation Date, Time and Location Date Performed: 01/19/24 Time Performed: 09:40 Patient Location: Day [facility] Unit Vital Signs Most Recent Imported Vital Signs: Most Recent Vital Signs Temp Pulse Resp BP Pulse Ox 36.2 C L 55 L 18 146/66 H 98 01/19/24 09:20 01/19/24 09:20 01/19/24 09:20 01/19/24 09:20 01/19/24 09:20 Pain Score Most Recent Pain Score: Most Recent Pain Score Pain Level 0 01/19/24 09:20 Assessment Mental Status: Awake (Alert & Oriented to Patient Baseline) Airway and Respiratory Function: Patent airway with normal (patient baseline) respiratory exam Cardiovascular Function: Hemodynamically Stable Hydration Status: Adequately Hydrated Nausea & Vomiting: No Nausea or Vomiting Pain: Pt. Denies Any Pain Peripheral Nerve Block: Patient did not receive a nerve block
== END 2024-01-19 09:35 | disposition home or self-care (01) ==
PROVIDERS: PCP Nurse Practitioner Family; Visit Provider Ophthalmology
PROC: (CPT 66984; principal; 2024-01-19 09:00)
DX: H25.011 Cortical age-related cataract, right eye (principal); H25.11 Age-related nuclear cataract, right eye; I25.10 Atherosclerotic heart disease of native coronary artery without angina pectoris
CPT/HCPCS: 66984; 00123; V2632; J2003

== ENCOUNTER 2024-03-26 01:25 | Outpatient (CLI) | payer MEDICARE, MEDICAID, SELFPAY ==
--- NOTE | 2024-03-26 09:30 | DI.US_ITS ---
APPROVED REPORT EXAM: Comprehensive 2D, Doppler, and color-flow Echocardiogram Patient Location: Out-Patient [facility] Keeper: Ashutosh Parker RDCS (AE) Indications: TAVR Other Information Study Quality: Fair. Technically limited study due to body habitus. Conclusion Mild concentric left ventricular hypertrophy. Ejection fraction is 58%. Wall motion is normal Normal right ventricular size and function Both atria are mildly enlarged There is a bioprosthetic aortic valve. Mean gradient is 18 mmHg. There is no aortic regurgitation. Structurally normal mitral valve with mild regurgitation Wall motion Left Ventricle The left ventricle is normal size. The left ventricular systolic function is normal. The left ventric ular ejection fraction is within the normal range. Mild concentric left ventricular hypertrophy. Ther e is normal LV segmental wall motion. There is no ventricular septal defect visualized. LVEF is 58%. Right Ventricle The right ventricle is normal size. The right ventricular systolic function is normal. Atria Left atrium is mildly dilated. Right atrium is mildly dilated. The interatrial septum is intact with no evidence for an atrial septal defect. Aortic Valve Pt s/p TAVR. Mean gradient is 18 mmHg No aortic regurgitation is present. Mitral Valve The mitral valve is normal in structure. No evidence of mitral valve stenosis. Mild mitral regurgitat ion. Tricuspid Valve The tricuspid valve is normal in structure. There is no tricuspid valve stenosis. Trace tricuspid reg urgitation. Unable to assess PA pressure. Pulmonic Valve The pulmonary valve is normal in structure. There is no pulmonic valvular stenosis. Trace to mild pul nate regurgitation. Great Vessels The aortic root is normal in size. The ascending aorta is normal in size. Aortic arch is not well vis ualized. The IVC is dilated but collapses >50% with inspiration. Pericardium There is no pericardial effusion. 2D Dimensions IVSD d PLAX 1.26 cm M: 0.6-1.2 Ao Root d 2.09 cm M: 3.1 - 3.7 LVPW d PLAX 1.31 cm M: 0.6 - 1.2 Ao Asc Diam d 3.09 cm M: 2.6 - 3.4 LVID d PLAX 5.04 cm M: 4.2 - 5.8 IVC Diam exp d SLAX 2.4 cm LVDs 3.55 cm M: 2.5 - 4.0 LV EF Teichholz 56.2 % FS 29.52 % LV EDV (Teich) 120.7 mL LV ESV (Teich) 52.8 mL Stroke Vol Index (Teich) 33.77 M-Mode TAPSE 1.90 cm (M/F) >1.7 Auto EF LV EDV A4C 130.5 mL LV EDV A2C 119.9 mL LV EDV BP 123.9 mL LV ESV A4C 57.8 mL LV ESV A2C 50.8 mL LV ESV BP 53.4 mL LVEF(%) A4C 55.7 % LVEF(%) A2C 57.6 % LVEF(%) BP 56.9 % LV SV A4C 72.6 ml LV SV A2C 69.0 ml LV SV BP 70.5 ml LV CO A4C 4.4 L/min LV CO A2C 4.2 L/min LV CO BP 4.3 L/min HR A4C 61.02 BPM HR A2C 61.23 BPM LV EDV Index (BP) LA Volume LA Length A4C 5.8 cm LA Length A2C 6.1 cm LA Area A4C s 16.85 cm2 LA Area A2C s 23.95 cm2 LA Vol A4C A-L 41.20 mL LA Vol A2C A-L 80.17 mL LA Vol Biplane A-L 58.6 mL LA Vol/BSA A4C A-L LA Vol/BSA A2C A-L LA Vol/BSA BP A-L 29.1 mL/m2 LA Vol A4C MOD 37.4 mL LA Vol A2C MOD 77.8 mL LA Vol BP MOD 54.3 mL RA Volume RA Area A4C 16.3 cm2 RA ESV A4C (A-L) 51.4mL RA Vol/BSA A4C A-L RA Length A4C 4.4 cm RA ESV A4C (MOD) 48.0mL LV Diastology MV E' medial 0.044 (>0.07 m/s) MV E Vmax 0.74 (0.4-1.3 m/s) MV E/E' MED 16.73 (<14) MV A Vmax 0.80 (0.4-1.3 m/s) MV E' lateral 0.062 (>0.1 m/s) E/A Ratio 0.9 MV E/E' LAT 11.90 (<14) MV E' Average 0.053 m/s MV E/E'(average) 13.91 Aortic Valve AoV Vmax 3.06 m/s LVOT Vmax 1.07 m/s AoV Peak Grad 37.3 mmHg LVOT Peak Grad 4.6 mmHg AoV Area (Vmax) 0.74 cm2 LVOT VTI 0.260 m AoV VTI 0.685 m LVOT Mean Grad 2.6 mmHg AoV Mean Tim. 2.13 m/s LVOT SV 54.82 mL AoV Mean Grad 20.3 mmHg LVOT Diam s 1.60 cm AoV Area (VTI) 0.80 cm2 AV Regurg Peak Gr. 37.35 mmHg Velocity Ratio 0.35 Mitral Valve MV DT 315 (160-240 msec) MV Vmax TIPS 0.81 m/s MV Mean Grad 0.9 (<2mmHg) MV VTI 0.317 m Pulmonary Valve PV Vmax 1.00 (0.5-1.5 m/s) RVOT Vmax 0.65 m/s PV Peak Grad 4.0 mmHg RVOT Peak Gr. 1.7 mmHg PV Mean Tim 0.66 m/s RVOT VTI 0.161 m PV Mean Grad 2.0 mmHg RVOT Mean Gr. 1.2 mmHg
== END 2024-03-26 01:45 ==
LOC: DI 01:25
PROVIDERS: PCP Nurse Practitioner Family; Visit Provider Nurse Practitioner Family
DX: Z95.2 Presence of prosthetic heart valve (principal)
CPT/HCPCS: 93306

== ENCOUNTER 2024-03-26 09:51 | Outpatient (CLI) | payer MEDICARE, MEDICAID, SELFPAY ==
[2024-03-26 09:41] LABS: Abs Immature Grans 0.01 10^3/uL (0.0-0.06); Absolute Basophil Count 0.07 10^3/uL (0.0-0.2); Absolute Eosinophil Count 0.18 10^3/uL (0.0-0.7); Absolute Lymphocyte Count 1.94 10^3/uL (1.2-3.4); Absolute Monocyte Count 0.68 10^3/uL (0.1-0.8); Absolute Neutrophil Count 3.76 10^3/uL (1.2-6.7); Basophils % 1.1 %; Eosinophils % 2.7 %; HCT 42.9 % (40.0-50.0); HGB 14.2 g/dL (13.5-17.5); Immature Grans % 0.2 %; Lymphocytes % 29.2 %; MCH 32.1 pg (27.0-33.0); MCHC 33.1 % (32.0-36.0); MCV 97 fL (80-95); MPV 10.2 fL (8.0-11.0); Monocytes % 10.2 %; Neutrophils % 56.6 %; Platelet Count 207 10^3/uL (130-400); RBC 4.42 10^6/uL (4.36-5.78); RDW 12.6 % (11.8-14.1); RDW-SD 45.9 fL; WBC 6.64 10^3/uL (4.4-10.8)
[2024-03-26 10:12] LABS: ALT 25 U/L (16-63); AST 26 U/L (15-37); Albumin 3.5 g/dL (3.4-5.0); Alkaline Phosphatase 77 U/L (46-116); Anion Gap 5.6 mmol/L (3-11); BUN 15 mg/dL (7-18); Bilirubin, Total 0.54 mg/dL (0.2-1.0); CO2 29.4 mmol/L (21.0-32.0); Calcium 8.8 mg/dL (8.5-10.1); Chloride 104 mmol/L (98-107); Estimated GFR 74.68 (mL/min/1.73m2); Glucose 77 mg/dL (74-106); Potassium 4.6 mmol/L (3.5-5.1); Sodium 139 mmol/L (136-145); Total Protein 7.2 g/dL (6.4-8.2)
== END 2024-03-26 09:52 | disposition home or self-care (01) ==
LOC: LBO 09:51
PROVIDERS: PCP Nurse Practitioner Family; Visit Provider Nurse Practitioner Family
DX: Z95.2 Presence of prosthetic heart valve (principal)
CPT/HCPCS: 36415; 80053; 93306; 85025

== ENCOUNTER → 2024-06-04 09:25 | Outpatient (BNVA) | payer MEDICARE, MEDICAID, SELFPAY | PROVIDERS: PCP Nurse Practitioner Family; Visit Provider Nurse Practitioner Gerontology | DX: N40.1 Benign prostatic hyperplasia with lower urinary tract symptoms (principal); R35.1 Nocturia | CPT/HCPCS: 51798; 99213 ==

== ENCOUNTER → 2024-12-03 09:37 | Outpatient (BNVA) | payer MEDICARE, MEDICAID, SELFPAY | PROVIDERS: PCP Nurse Practitioner Family; Referring Provider Nurse Practitioner Family; Visit Provider Nurse Practitioner Gerontology | DX: R39.9 Unspecified symptoms and signs involving the genitourinary system (principal); N40.1 Benign prostatic hyperplasia with lower urinary tract symptoms | CPT/HCPCS: 99213; 51798 ==

== ENCOUNTER 2025-03-03 09:24 | Emergency (ER) | payer MEDICARE, MEDICAID, SELFPAY ==
[2025-03-03 09:30] VITALS: BP 136/70; PULSE 60; RESP 16; TEMP 36.4; O2SAT 94
--- NOTE | 2025-03-03 10:01 | DI.RAD_ITS ---
Exam(s) XR KNEE LT 3V AP,LAT,MURPHY EXAM: XR KNEE LT 3V AP,LAT,MURPHY CLINICAL HISTORY: pain and swelling. TECHNIQUE: 2D digital imaging was performed of the left knee. Three images were obtained. AP, lateral and PA tunnel views were obtained. COMPARISON: No exams were available for comparison FINDINGS: BONES: No acute fracture is present. No bony destructive lesion is seen. JOINTS: There are mild degenerative changes seen in the knee characterized by joint space narrowing and osteophytes. No joint effusion is seen. No loose body. SOFT TISSUE: There is marked soft tissue swelling anterior to the patella. There is air associated with the soft tissue swelling. There are no radiopaque foreign bodies. Atherosclerotic calcification is present. IMPRESSION: 1. There is no acute fracture or dislocation. 2. Marked soft tissue swelling anterior to the patella with associated foci of air. Correlation with clinical history is recommended. The air may represent puncture injury or laceration. Infection should also be considered. DATA REPOSITORY: RADIATION DOSE DELIVERED:
--- NOTE | 2025-03-05 13:28 | W.ED.GENAD ---
Discharge Plan Disposition Patient Disposition: Home Condition: Stable Discharge Details Clinical Impression: Bursitis, prepatellar, left Primary Care Provider: DAMON GABRIEL ED Provider: Evangelina Kwon Home Meds and New Rx's Prescriptions: Continued ibuprofen [Advil] 200 mg tablet 200 mg PO Q6H PRN atorvastatin 20 mg tablet 80 mg PO DAILY tamsulosin [Flomax] 0.4 mg capsule 0.4 mg PO DAILY Qty: 90 3RF escitalopram oxalate [Lexapro] 10 mg tablet 10 mg PO DAILY mirtazapine 7.5 mg tablet 7.5 mg PO DAILY aspirin [Aspir-81] 81 MG tablet,delayed release (DR/EC) 81 mg PO BID docusate sodium [Colace] 100 mg Capsule 100 mg PO DAILY losartan 25 mg tablet 50 mg PO DAILY amlodipine 5 mg tablet 5 mg PO DAILY Patient Comments: TAKE ONE TABLET BY MOUTH EVERY DAY metoprolol succinate 50 mg tablet extended release 24 hr 50 mg PO DAILY Patient Comments: TAKE 1 TABLET BY MOUTH DAILY Discharge Instructions Instructions: Prepatellar Bursitis (DC) Additional Instructions: Change dressing daily and wash with soap and water and apply compression refrain from kneeling for the next 2 weeks is much as possible as this will make the swelling in your bursa worsen and delay healing You may apply ice rest and elevate Please return with spreading redness, fever, worsening pain There is no evidence of infection in the site based on the culture at this time Recheck with primary care physician in 1 to 2 weeks Referrals: DAMON GABRIEL, [employer]ER [Primary Care Provider, Medicine] Discharge Data Discharge Date/Time-TO BE ENTERED AT DEPARTURE: 03/03/25 11:17 HPI General Date/Time Provider Initiated Documentation: 03/03/25 09:37. HPI Narrative: This evie 84-year-old gentleman presents with swelling and tenderness to his left knee. He states that he was working on the floor approximately a month ago and has been doing intermittent kneeling throughout the week. Denies taking a blood thinner. He states he noticed some swelling to his knee approximately 3 days ago he states it is not painful. Denies any fever or chills denies history of similar symptoms in the past. Related Data Home Medications ?Medication ?Instructions ?Recorded ?Confirmed aspirin 81 mg tablet,delayed 81 mg PO BID 09/18/13 03/03/25 release (Aspir-) ibuprofen 200 mg tablet (Advil) 200 mg PO Q6H PRN 11/16/21 03/03/25 atorvastatin 20 mg tablet 80 mg PO DAILY 05/31/22 03/03/25 docusate sodium 100 mg capsule 100 mg PO DAILY 02/12/23 03/03/25 (Colace) escitalopram oxalate 10 mg tablet 10 mg PO DAILY 05/15/23 03/03/25 (Lexapro) losartan 25 mg tablet 50 mg PO DAILY 05/15/23 03/03/25 mirtazapine 7.5 mg tablet 7.5 mg PO DAILY 05/15/23 01/19/24 amlodipine 5 mg tablet 5 mg PO DAILY 12/28/23 03/03/25 metoprolol succinate 50 mg 50 mg PO DAILY 12/29/23 03/03/25 tablet,extended release 24 hr tamsulosin 0.4 mg capsule (Flomax) 0.4 mg PO DAILY #90 caps 06/04/24 03/03/25 Previous Rx's ?Medication ?Instructions ?Recorded tamsulosin 0.4 mg capsule (Flomax) 0.4 mg PO DAILY #90 caps 06/04/24 Allergies Allergy/AdvReac Type Severity Reaction Status Date / Time iodine Allergy Severe Other (See Verified 03/03/25 09:31 Comment) simvastatin AdvReac Intermediate upset Verified 06/04/24 10:40 stomach General Stated Complaint: Orthopedic BRITTON: 4 Exam Narrative Exam Narrative: Left knee with prepatellar swelling and fluctuance no surrounding erythema, neurovascularly intact no tenderness or swelling to distal or proximal extremities, alert, oriented, no acute distress ambulatory with steady gait Course Vital Signs Vital signs: Vital Signs Temperature 36.4 C 03/03/25 09:30 Pulse 60 03/03/25 09:30 Respiratory Rate 16 03/03/25 09:30 Blood Pressure 136/70 03/03/25 09:30 Pulse Oximetry 94 03/03/25 09:30 Temperature 36.4 C 03/03/25 09:30 Temperature Source Oral 03/03/25 09:30 Pulse 60 03/03/25 09:30 Respiratory Rate 16 03/03/25 09:30 Blood Pressure 136/70 03/03/25 09:30 Blood Pressure Position Sitting 03/03/25 09:30 Pulse Oximetry 94 03/03/25 09:30 Oxygen Delivery Method Room Air 03/03/25 09:30 Oxygen Flow Rate 0 03/03/25 09:30 Pain Level 5 03/03/25 09:30 Lab/Test Results Lab/Test Results: 03/03/25 10:00 Bursa Body Fluid Culture - Preliminary 03/03/25 10:00 Bursa Gram Stain - Final Medical Decision Making Results: Left knee with prepatellar swelling no evidence of fracture Assessment and plan: Given acute onset swelling and fluctuance I did aspirate prepatellar bursa and blood mixed with serosanguineous drainage pressure dressing was applied Gram stain did not show any white blood cells no antibiotics indicated and encouraged ice refraining from kneeling and elevation with compression as much as possible. Recheck with primary care physician in 1 to 2 days encouraged return precautions reviewed wound culture pending [facility] All Active Problems (Updated 03/03/25 @ 10:53 by ASHKAN Ayala) Bursitis, prepatellar, left (Acute) Acute non-ST elevation myocardial infarction (NSTEMI) (Acute) ASCVD (arteriosclerotic cardiovascular disease) (Acute) Abnormal stress echo (Acute) Constipation (Acute ~05/2017) H/O aortic valve replacement (Acute) DVT prophylaxis (Acute) Palpitations (Acute) Coronary artery disease (Chronic) Chest pain (Acute) Aortic stenosis (Chronic) Medical History Urinary hesitancy Abrasion, corneal Normal colonoscopy Lower urinary tract symptoms GERD (gastroesophageal reflux disease) Chest discomfort Hyperlipidemia Dysphagia Anxiety disorder History of tobacco use ED (erectile dysfunction) of organic origin Sleep disturbance Low back pain Surgical History History of colonoscopy S/P TURP TURP then ~10 yrs later green laser therapy. Both procedures done at facility in [place] H/O aortic valve replacement S/P CABG (coronary artery bypass graft) Social History Smoking/Tobacco Use Status: Former Tobacco Use Quit Date: 07/03/84 Tobacco: How many years used: 15 Smokeless tobacco user: other Smoking risk assessment performed?: Yes Alcohol Intake: former Year quit: 1979 Drug use: Never Substance use type: does not use Housing: house What type of physical activity do you participate in: walking and resistance training Frequency: 3-4 times per week Do you feel safe at home: Yes Do you feel safe in your relationship?: Yes
== END 2025-03-03 11:17 | disposition home or self-care (01) ==
PROVIDERS: Emergency Provider Physician Assistant; PCP Nurse Practitioner Family
DX: M70.42 Prepatellar bursitis, left knee (principal)
CPT/HCPCS: 99283 ×2; 73562; 87070; 87205

== ENCOUNTER 2025-04-15 14:33 | Emergency (ER) | payer MEDICARE, MEDICAID, SELFPAY ==
[2025-04-15 14:36] VITALS: BP 138/69; PULSE 63; RESP 16; TEMP 36.4; O2SAT 94
--- NOTE | 2025-04-15 14:45 | DI.RAD_ITS ---
Exam(s) XR KNEE RT 3V AP,LAT,MURPHY EXAM: XR KNEE RT 3V AP,LAT,MURPHY CLINICAL HISTORY: Right knee pain.. TECHNIQUE: 2D digital imaging was performed. Three views. COMPARISON: CR XR KNEE LT 3V AP,LAT,MURPHY from 03/03/2025 FINDINGS: BONES: No acute fracture is present. No bony destructive lesion is seen. JOINTS: The knee is normally aligned. The joint spaces are maintained. There is minimal periarticular spurring. A small joint effusion is seen. SOFT TISSUE: Normal surgical clips at the medial aspect of the knee. Vascular calcifications. Metallic density noted in soft tissues near the patellar tendon. Soft tissue swelling in the region of the patellar tendon. IMPRESSION: Anterior soft tissue swelling. Metallic foreign body of indeterminate age. DATA REPOSITORY: RADIATION DOSE DELIVERED:
--- NOTE | 2025-04-15 14:49 | W.ED.GENAD ---
Discharge Plan Discharge Details Chief Complaint: Orthopedic Primary Care Provider: DAMON GABRIEL ED Provider: Syed Ovalles Laton Meds and New Rx's Prescriptions: No Action ibuprofen [Advil] 200 mg tablet 200 mg PO Q6H PRN atorvastatin 20 mg tablet 80 mg PO DAILY tamsulosin [Flomax] 0.4 mg capsule 0.4 mg PO DAILY Qty: 90 3RF escitalopram oxalate [Lexapro] 10 mg tablet 10 mg PO DAILY mirtazapine 7.5 mg tablet 7.5 mg PO DAILY aspirin [Aspir-81] 81 MG tablet,delayed release (DR/EC) 81 mg PO BID docusate sodium [Colace] 100 mg Capsule 100 mg PO DAILY losartan 25 mg tablet 50 mg PO DAILY amlodipine 5 mg tablet 5 mg PO DAILY Patient Comments: TAKE ONE TABLET BY MOUTH EVERY DAY metoprolol succinate 50 mg tablet extended release 24 hr 50 mg PO DAILY Patient Comments: TAKE 1 TABLET BY MOUTH DAILY HPI General Date/Time Provider Initiated Documentation: 04/15/25 14:40. Related Data Home Medications ?Medication ?Instructions ?Recorded ?Confirmed aspirin 81 mg tablet,delayed 81 mg PO BID 09/18/13 03/03/25 release (Aspir-) ibuprofen 200 mg tablet (Advil) 200 mg PO Q6H PRN 11/16/21 03/03/25 atorvastatin 20 mg tablet 80 mg PO DAILY 05/31/22 03/03/25 docusate sodium 100 mg capsule 100 mg PO DAILY 02/12/23 03/03/25 (Colace) escitalopram oxalate 10 mg tablet 10 mg PO DAILY 05/15/23 03/03/25 (Lexapro) losartan 25 mg tablet 50 mg PO DAILY 05/15/23 03/03/25 mirtazapine 7.5 mg tablet 7.5 mg PO DAILY 05/15/23 01/19/24 amlodipine 5 mg tablet 5 mg PO DAILY 12/28/23 03/03/25 metoprolol succinate 50 mg 50 mg PO DAILY 12/29/23 03/03/25 tablet,extended release 24 hr tamsulosin 0.4 mg capsule (Flomax) 0.4 mg PO DAILY #90 caps 06/04/24 03/03/25 Previous Rx's ?Medication ?Instructions ?Recorded tamsulosin 0.4 mg capsule (Flomax) 0.4 mg PO DAILY #90 caps 06/04/24 Allergies Allergy/AdvReac Type Severity Reaction Status Date / Time iodine Allergy Severe Other (See Verified 04/15/25 14:39 Comment) simvastatin AdvReac Intermediate upset Verified 04/15/25 14:39 stomach General Stated Complaint: Orthopedic BRITTON: 4 Course Vital Signs Vital signs: Vital Signs Temperature 36.4 C L 04/15/25 14:36 Pulse 63 04/15/25 14:36 Respiratory Rate 16 04/15/25 14:36 Blood Pressure 138/69 04/15/25 14:36 Pulse Oximetry 94 04/15/25 14:36 Temperature 36.4 C L 04/15/25 14:36 Pulse 63 04/15/25 14:36 Respiratory Rate 16 04/15/25 14:36 Blood Pressure 138/69 04/15/25 14:36 Pulse Oximetry 94 04/15/25 14:36 Oxygen Delivery Method Room Air 04/15/25 14:36 Oxygen Flow Rate 0 04/15/25 14:36 PFSH All Active Problems (Updated 04/03/25 @ 00:03 by MAYITO MEZA) Acute non-ST elevation myocardial infarction (NSTEMI) (Acute) ASCVD (arteriosclerotic cardiovascular disease) (Acute) Abnormal stress echo (Acute) Constipation (Acute ~05/2017) H/O aortic valve replacement (Acute) DVT prophylaxis (Acute) Palpitations (Acute) Coronary artery disease (Chronic) Chest pain (Acute) Aortic stenosis (Chronic) Medical History Urinary hesitancy Abrasion, corneal Normal colonoscopy Lower urinary tract symptoms GERD (gastroesophageal reflux disease) Chest discomfort Hyperlipidemia Dysphagia Anxiety disorder History of tobacco use ED (erectile dysfunction) of organic origin Sleep disturbance Low back pain Surgical History History of colonoscopy S/P TURP TURP then ~10 yrs later green laser therapy. Both procedures done at facility in [place] H/O aortic valve replacement S/P CABG (coronary artery bypass graft) Social History Smoking/Tobacco Use Status: Former Tobacco Use Quit Date: 07/03/84 Tobacco: How many years used: 15 Smokeless tobacco user: other Smoking risk assessment performed?: Yes Alcohol Intake: former Year quit: 1979 Drug use: Never Substance use type: does not use Housing: house What type of physical activity do you participate in: walking and resistance training Frequency: 3-4 times per week Do you feel safe at home: Yes Do you feel safe in your relationship?: Yes
[2025-04-15] MEDS: Acetaminophen 500 MG TAB 1000 MG PO (14:56)
--- NOTE | 2025-04-15 15:19 | W.EDPROG ---
Date of service: 04/15/25 Time of Service: 15:19 Medical Decision Making Initially signed up to evaluate this patient. I ordered a knee x-ray and acetaminophen. He was not in the room at the time of my assessment. Discharge Plan Discharge Details Chief Complaint: Orthopedic Primary Care Provider: DAMON GABRIEL ED Provider: Provider,Temporary Home Meds and New Rx's Prescriptions: No Action ibuprofen [Advil] 200 mg tablet 200 mg PO Q6H PRN atorvastatin 20 mg tablet 80 mg PO DAILY tamsulosin [Flomax] 0.4 mg capsule 0.4 mg PO DAILY Qty: 90 3RF escitalopram oxalate [Lexapro] 10 mg tablet 10 mg PO DAILY mirtazapine 7.5 mg tablet 7.5 mg PO DAILY aspirin [Aspir-81] 81 MG tablet,delayed release (DR/EC) 81 mg PO BID docusate sodium [Colace] 100 mg Capsule 100 mg PO DAILY losartan 25 mg tablet 50 mg PO DAILY amlodipine 5 mg tablet 5 mg PO DAILY Patient Comments: TAKE ONE TABLET BY MOUTH EVERY DAY metoprolol succinate 50 mg tablet extended release 24 hr 50 mg PO DAILY Patient Comments: TAKE 1 TABLET BY MOUTH DAILY
--- NOTE | 2025-04-15 15:32 | W.ED.GENAD ---
Discharge Plan Disposition Patient Disposition: Home Condition: Stable Discharge Details Clinical Impression: Internal derangement of right knee Primary Care Provider: DAMON GABRIEL ED Provider: Scott Cid Home Meds and New Rx's Prescriptions: Continued ibuprofen [Advil] 200 mg tablet 200 mg PO Q6H PRN atorvastatin 20 mg tablet 80 mg PO DAILY tamsulosin [Flomax] 0.4 mg capsule 0.4 mg PO DAILY Qty: 90 3RF escitalopram oxalate [Lexapro] 10 mg tablet 10 mg PO DAILY mirtazapine 7.5 mg tablet 7.5 mg PO DAILY aspirin [Aspir-81] 81 MG tablet,delayed release (DR/EC) 81 mg PO BID docusate sodium [Colace] 100 mg Capsule 100 mg PO DAILY losartan 25 mg tablet 50 mg PO DAILY amlodipine 5 mg tablet 5 mg PO DAILY Patient Comments: TAKE ONE TABLET BY MOUTH EVERY DAY metoprolol succinate 50 mg tablet extended release 24 hr 50 mg PO DAILY Patient Comments: TAKE 1 TABLET BY MOUTH DAILY Discharge Instructions Instructions: Internal Derangement of the Knee Additional Instructions: You were seen in the emergency department for your right knee injury, you most likely have a tear of the medial meniscus which you will need to see orthopedics for, I placed you on their follow-up list and attached their phone number but you should hear from them this week for scheduling. In the meantime use the hinged knee brace while performing your daily activities, please rest, ice, compress and elevate your knee often, take Tylenol and ibuprofen as needed for pain relief, return for any severe increase in the size or swelling of your knee with redness and warmth or any inability to ambulate Referrals: [facility] [Provider Group] DAMON GABRIEL, [employer] WORK[employer] [Primary Care Provider, Medicine] Discharge Data Discharge Date/Time-TO BE ENTERED AT DEPARTURE: 04/15/25 16:30 HPI General Date/Time Provider Initiated Documentation: 04/15/25 14:40. HPI Narrative: 84 year-old male presents to ED today by POV/ambulating with a chief complaint of R knee pain with onset a few weeks ago with feeling a pop,now having intermittent medial joint line pain. Quality described as sharp sometimes- but some days it goes away completely, no radiation to numbness, lesion, severe trauma, skin changes, warmth to touch, fever, questions whether he also has sciatica. Severity is described as moderate. Palliating factors include nothing specific attempted. Provoking factors include somedays doing chores hurts worse. Patient not anticoagulated. Related Data Home Medications ?Medication ?Instructions ?Recorded ?Confirmed aspirin 81 mg tablet,delayed 81 mg PO BID 09/18/13 03/03/25 release (Aspir-) ibuprofen 200 mg tablet (Advil) 200 mg PO Q6H PRN 11/16/21 03/03/25 atorvastatin 20 mg tablet 80 mg PO DAILY 05/31/22 03/03/25 docusate sodium 100 mg capsule 100 mg PO DAILY 02/12/23 03/03/25 (Colace) escitalopram oxalate 10 mg tablet 10 mg PO DAILY 05/15/23 03/03/25 (Lexapro) losartan 25 mg tablet 50 mg PO DAILY 05/15/23 03/03/25 mirtazapine 7.5 mg tablet 7.5 mg PO DAILY 05/15/23 01/19/24 amlodipine 5 mg tablet 5 mg PO DAILY 12/28/23 03/03/25 metoprolol succinate 50 mg 50 mg PO DAILY 12/29/23 03/03/25 tablet,extended release 24 hr tamsulosin 0.4 mg capsule (Flomax) 0.4 mg PO DAILY #90 caps 06/04/24 03/03/25 Previous Rx's ?Medication ?Instructions ?Recorded tamsulosin 0.4 mg capsule (Flomax) 0.4 mg PO DAILY #90 caps 06/04/24 Allergies Allergy/AdvReac Type Severity Reaction Status Date / Time iodine Allergy Severe Other (See Verified 04/15/25 14:39 Comment) simvastatin AdvReac Intermediate upset Verified 04/15/25 14:39 stomach General Stated Complaint: Orthopedic BRITTON: 4 Review of Systems All systems reviewed & are unremarkable except as noted in HPI and below Exam Narrative Exam Narrative: GENERAL APPEARANCE: Well-nourished, non-toxic, awake and alert, atraumatic, no acute distress. SKIN: Warm, pink, dry, intact, without rashes/lesions/ulcerations. HEAD: Normocephalic, atraumatic, normal hair distribution for gender/age. EYES: Normal conjunctiva, no exudates on lids/lashes. ENT: Nares patent, no circumoral cyanosis, no facial swelling NECK: Supple, trachea midline, painless cervical ROM. LUNGS/CHEST: Non-labored respirations, normal A/P diameter, symmetrical expansion, no chest wall deformity HEART (CV/PV): No peripheral edema, no JVD. ABDOMEN: Soft, non-distended, no guarding. MSK: Normal ROM, no swelling/deformity to bilateral UEs or LEs, moving all extremities without weakness, no cyanosis, spine midline without tenderness, normal curvature, R KNEE: MacMurray positive R medial knee, no overt joint-line tenderness, anterior drawer negative, no laxity with varus/valgus forces, able to flex/extend without limit, able to bear weight, no warmth or erythema NEURO: Mental Status AAOx4 - alert to person, place, time, events No facial droop, no forehead involvement. Motor: No focal weakness - strength 5/5 in bilateral UEs and LEs, proximal and distal, symmetric. Sensory: sensation intact to light touch globally. Gait antalgic. PSYCH: euthymic, cooperative, pleasant, appropriate speech Course Vital Signs Vital signs: Vital Signs Temperature 36.4 C L 04/15/25 14:36 Pulse 63 04/15/25 14:36 Respiratory Rate 16 04/15/25 14:36 Blood Pressure 138/69 04/15/25 14:36 Pulse Oximetry 94 04/15/25 14:36 Temperature 36.4 C L 04/15/25 14:36 Pulse 63 04/15/25 14:36 Respiratory Rate 16 04/15/25 14:36 Blood Pressure 138/69 04/15/25 14:36 Pulse Oximetry 94 04/15/25 14:36 Oxygen Delivery Method Room Air 04/15/25 14:36 Oxygen Flow Rate 0 04/15/25 14:36 Medical Decision Making This dictation utilizes [id number] dictation software and may contain unedited grammatical errors. 84 year-old male presents to ED today by POV/ambulating with a chief complaint of R knee pain with onset a few weeks ago with feeling a pop,now having intermittent medial joint line pain. Quality described as sharp sometimes- but some days it goes away completely, no radiation to numbness, lesion, severe trauma, skin changes, warmth to touch, fever, questions whether he also has sciatica. Severity is described as moderate. Palliating factors include nothing specific attempted. Provoking factors include somedays doing chores hurts worse. Patients' medical history: GERD, history of aortic valve replacement and CABG. 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 Pertinent exam findings / vital signs include MacMurray positive R medial knee, no overt joint-line tenderness, anterior drawer negative, no laxity with varus/valgus forces, able to flex/extend without limit, able to bear weight, no warmth or erythema. Differential / pathologies of concern include internal knee injury, meniscus tear, tendinitis. Diagnostic studies of: -XR R Knee - shows small effusion and anterior foreign body- patient denies known history of this. Interventions of: -Hinged knee brace, placed on ortho f/u list. ED Course/Assessment/Plan: 84-year-old male was performing manual labor few weeks ago felt a pop in his right knee, he is right foot dominant, he likely has a meniscus tear to the medial meniscus, unknown age of the anterior foreign body and he has a small effusion, counseled him on hinged knee brace use and RICE therapy at using OTC analgesics for relief while he awaits definitive follow-up, strict return criteria for any signs of neurovascular compromise or increasing redness and warmth to touch to the knee. Findings not consistent with septic arthritis, fracture, neurovascular compromise distally. Disposition of internal derangement of right knee. Patient verbalized understanding of the plan and return to ED criteria and engaged in shared decision making. Medical Records Medical records reviewed: Yes I reviewed the patient's medical records. Imaging Data Radiologic Study: Attestation: I personally reviewed and interpreted this imaging study as follows: Imaging: X-Ray Radiologist's impression: EXAM: XR KNEE RT 3V AP,LAT,MURPHY CLINICAL HISTORY: Right knee pain.. TECHNIQUE: 2D digital imaging was performed. Three views. COMPARISON: CR XR KNEE LT 3V AP,LAT,MURPHY from 03/03/2025 FINDINGS: BONES: No acute fracture is present. No bony destructive lesion is seen. JOINTS: The knee is normally aligned. The joint spaces are maintained. There is minimal periarticular spurring. A small joint effusion is seen. SOFT TISSUE: Normal surgical clips at the medial aspect of the knee. Vascular calcifications. Metallic density noted in soft tissues near the patellar tendon. Soft tissue swelling in the region of the patellar tendon. IMPRESSION: Anterior soft tissue swelling. Metallic foreign body of indeterminate age. PFSH All Active Problems (Updated 04/15/25 @ 15:49 by ASHKAN Recinos) Internal derangement of right knee (Acute) Acute non-ST elevation myocardial infarction (NSTEMI) (Acute) ASCVD (arteriosclerotic cardiovascular disease) (Acute) Abnormal stress echo (Acute) Constipation (Acute ~05/2017) H/O aortic valve replacement (Acute) DVT prophylaxis (Acute) Palpitations (Acute) Coronary artery disease (Chronic) Chest pain (Acute) Aortic stenosis (Chronic) Medical History Urinary hesitancy Abrasion, corneal Normal colonoscopy Lower urinary tract symptoms GERD (gastroesophageal reflux disease) Chest discomfort Hyperlipidemia Dysphagia Anxiety disorder History of tobacco use ED (erectile dysfunction) of organic origin Sleep disturbance Low back pain Surgical History History of colonoscopy S/P TURP TURP then ~10 yrs later green laser therapy. Both procedures done at facility in [place] H/O aortic valve replacement S/P CABG (coronary artery bypass graft) Social History Smoking/Tobacco Use Status: Former Tobacco Use Quit Date: 07/03/84 Tobacco: How many years used: 15 Smokeless tobacco user: other Smoking risk assessment performed?: Yes Alcohol Intake: former Year quit: 1979 Drug use: Never Substance use type: does not use Housing: house What type of physical activity do you participate in: walking and resistance training Frequency: 3-4 times per week Do you feel safe at home: Yes Do you feel safe in your relationship?: Yes
--- NOTE | 2025-05-20 16:50 | NUR.NOTE ---
Accessed Pt chart to print off Provider Notes for [facility] paperwork
== END 2025-04-15 16:30 | disposition home or self-care (01) ==
LOC: ER 15:57
PROVIDERS: Emergency Provider Physician Assistant; PCP Nurse Practitioner Family
DX: M23.91 Unspecified internal derangement of right knee (principal); M25.461 Effusion, right knee
CPT/HCPCS: 99283 ×2; 00123; 73562

== ENCOUNTER 2025-04-25 11:45 | Outpatient (CLI) | payer MEDICARE, MEDICAID, SELFPAY ==
--- NOTE | 2025-04-25 09:45 | DI.RAD_ITS ---
Exam(s) XR HIP RT COMPLETE AP PELVIS EXAM: XR HIP RT COMPLETE AP PELVIS CLINICAL HISTORY: R hip pain. TECHNIQUE: 2D digital imaging was performed. Two views COMPARISON: No exams were available for comparison FINDINGS: BONES: No acute fracture is present. No bony destructive lesion is seen. JOINTS: No dislocation present. Mild bilateral hip joint space narrowing and mild periarticular spurring. SI joints and pubic symphysis are unremarkable. SOFT TISSUE: Normal vascular calcifications. Surgical clips in the medial right upper thigh. IMPRESSION: No acute abnormality. Mild degenerative changes of both hips. DATA REPOSITORY: RADIATION DOSE DELIVERED:
== END 2025-04-25 11:46 | disposition home or self-care (01) ==
LOC: DIORS 11:46
PROVIDERS: PCP Nurse Practitioner Family; Referring Provider Nurse Practitioner Family; Visit Provider Physician Assistant
DX: M23.91 Unspecified internal derangement of right knee (principal); S76.311A Strain of muscle, fascia and tendon of the posterior muscle group at thigh level, right thigh, initial encounter; M25.551 Pain in right hip; X50.0XXA Overexertion from strenuous movement or load, initial encounter
CPT/HCPCS: 99213; 20610; J1010; 73502

== ENCOUNTER → 2025-06-17 09:25 | Outpatient (BNVA) | payer MEDICARE, MEDICAID, SELFPAY | PROVIDERS: PCP Nurse Practitioner Family; Visit Provider Nurse Practitioner Gerontology | DX: N40.1 Benign prostatic hyperplasia with lower urinary tract symptoms (principal); R39.9 Unspecified symptoms and signs involving the genitourinary system | CPT/HCPCS: 99213; 51798 ==

== ENCOUNTER → 2025-06-23 09:31 | Outpatient (BNVA) | payer MEDICARE, MEDICAID, SELFPAY | PROVIDERS: PCP Nurse Practitioner Family; Referring Provider Nurse Practitioner Family; Visit Provider Physician Assistant | DX: S76.311D Strain of muscle, fascia and tendon of the posterior muscle group at thigh level, right thigh, subsequent encounter (principal); X58.XXXD Exposure to other specified factors, subsequent encounter; M23.92 Unspecified internal derangement of left knee | CPT/HCPCS: 99213; 20610; J1010 ==